=== PATIENT | male | born 1940 | race Caucasian/White ===

== ENCOUNTER 2017-08-14 12:46 | Inpatient (IN) | payer MEDICARE, OTHER ==
[~2017-08-14] VITALS: Ht 177.8 cm; Wt 136.1 kg
[~2017-08-14 12:46] MED LIST: ADVAIR 500/501 EA INH; ALLOPURINOL100 MG PO; ALLOPURINOL300 MG PO; ASPIR 8181 MG PO; CETIRIZINE HCL10 MG PO; CLOPIDOGREL75 MG PO; DIOVAN80 MG PO; DOCUSATE SODIU100 MG PO; FLOVENT DISKUS50 MCG; GABAPENTIN300 MG PO; LASIX20 MG PO; LEVAQUIN500 MG PO; LEVOTHYROXINE50 MCG PO; MELATONIN3 MG PO; NEXIUM40 MG; NIFEDIPINE ER30 M1; NIFEDIPINE ER60 M1 PO; NOVOLIN N100 UNIT/1 SQ; OMEPRAZOLE40 MG PO; PROAIR HFA INH8.5 GM INH; SERTRALINE HCL100 MG PO; SIMVASTATIN40 MG PO; TYLENOL WITH C1 EACH PO; VIT D2 PO; ZEMPLAR1 MCG; [UNRECOGNIZED DRUG - OTHER] PO
[2017-08-14 13:18] LABS: BASOPHILS % 0.6 % (0.0-1.0); EOSINOPHILS # (AUTO) 0.1 (0.0-0.4); EOSINOPHILS % 2.8 % (0.0-6.0); HEMATOCRIT 35.5 % (38.2-49.6); HEMOGLOBIN 10.8 g/dL (14.0-18.0); LYMPHOCYTES # (AUTO) 0.7 (1.0-3.2); LYMPHOCYTES % 19.3 % (18.0-39.1); MEAN CORPUSCULAR HEMOGLOBIN 25.2 pg (28-32); MEAN CORPUSCULAR HGB CONC 30.4 g/dL (31-35); MEAN CORPUSCULAR VOLUME 82.8 fL (81-99); MONOCYTES # (AUTO) 0.4 (0.2-0.8); MONOCYTES % 10.1 % (4.4-11.3); NEUTROPHILS # (AUTO) 2.4 (2.1-6.9); NEUTROPHILS % 66.4 % (38.7-80.0); PLATELET COUNT 169 x10e3/uL (140-360); RED BLOOD COUNT 4.29 x10e6/uL (4.3-5.7)
--- NOTE | 2017-08-14 13:27 | Diagnostic Imaging Report ---
PROCEDURE: A single AP view of the chest. COMPARISON: None. INDICATIONS: SHORTNESS OF BREATH FINDINGS: Limited examination due to lordotic projection Lines/tubes: None. Lungs: The lungs are well inflated and clear. There is no evidence of pneumonia or pulmonary edema. Pleura: There is no pleural effusion or pneumothorax. Heart and mediastinum: The heart and the mediastinum are unremarkable. Bones: No acute bony abnormality. Suture anchor in the right humeral head. IMPRESSION: 1. No acute cardiopulmonary disease. Dictated by: Sacha Boyd M.D. on 08/14/2017 at 13:34 Electronically approved by: Sacha Boyd M.D. on 08/14/2017 at 13:34
[2017-08-14 13:29] LABS: INR 0.92; PARTIAL THROMBOPLASTIN TIME 26.2 seconds (23.8-35.5); PROTHROMBIN TIME 12.8 seconds (11.9-14.5)
[2017-08-14 13:41] LABS: ALBUMIN 3.3 g/dL (3.5-5.0); ALBUMIN/GLOBULIN RATIO 0.9 (0.8-2.0); CALCIUM 8.6 mg/dL (8.4-10.2); CREATININE, SERUM 1.55 mg/dL (0.72-1.25)
[2017-08-14 13:49] LABS: CREATINE KINASE MB 2.4 ng/mL (0.00-5.00); TROPONIN I 0.028 ng/mL (0-0.300)
[2017-08-14 15:21] LABS: ABG HCO3 27 mmol/L (23-28); ABG PCO2 45 mmHg (41-51); ABG PH 7.39 (7.31-7.41); ABG PO2 50 mmHg (80-105)
[2017-08-14] MEDS ORDERED: DEXTROSE 50% SYRINGE 50 ML IV PRN (16:00)
[2017-08-14] MEDS ORDERED: AZITHROMYCIN 500MG/SOD CHL 0.9% 250ML BAG IV SCH (16:00)
[2017-08-14] MEDS: CEFTRIAXONE SOD 1 GM VIAL IV SCH (16:30)
[2017-08-14] MEDS: OSELTAMIVIR PHOSPHATE 75 MG CAP PO SCH (16:30)
[2017-08-14] MEDS: AZITHROMYCIN 500MG/NS 250 ML 250 ML IV SCH (16:38)
[2017-08-14] MEDS: METHYLPREDNISOLONE SOD SUCC 40 MG/ML VIAL IV SCH (17:30)
[2017-08-14] MEDS: INSULIN REGULAR, HUMAN 100 UNIT/1 ML 3ML VIAL SQ SCH ×2 (18:08→20:38)
[2017-08-14 21:02] LABS: CREATINE KINASE MB 2.4 ng/mL (0.00-5.00); TROPONIN I 0.016 ng/mL (0-0.300)
[2017-08-14 23:28] VITALS: BP 180/81
[2017-08-15] MEDS: METHYLPREDNISOLONE SOD SUCC 40 MG/ML VIAL IV SCH ×3 (01:09→17:19)
[2017-08-15 04:00] VITALS: BP 156/81
[2017-08-15] MEDS ORDERED: MELATONIN 3 MG TAB PO PRN (06:00)
[2017-08-15] MEDS ORDERED: SODIUM CHLORIDE 0.9% 250ML 250 ML ONE (06:07)
[2017-08-15 06:15] LABS: BASOPHILS % 0.3 % (0.0-1.0); HEMOGLOBIN 10.4 g/dL (14.0-18.0); LYMPHOCYTES # (AUTO) 0.5 (1.0-3.2); MEAN CORPUSCULAR HEMOGLOBIN 24.5 pg (28-32); MEAN CORPUSCULAR HGB CONC 29.7 g/dL (31-35); MEAN CORPUSCULAR VOLUME 82.5 fL (81-99); MONOCYTES # (AUTO) 0.2 (0.2-0.8); MONOCYTES % 5.3 % (4.4-11.3); NEUTROPHILS # (AUTO) 2.8 (2.1-6.9); NEUTROPHILS % 78.8 % (38.7-80.0); PLATELET COUNT 162 x10e3/uL (140-360); RED BLOOD COUNT 4.24 x10e6/uL (4.3-5.7); RED CELL DISTRIBUTION WIDTH 18.7 % (11.7-14.4)
[2017-08-15 06:31] LABS: ANION GAP 15.6 mmol/L (8-16); CALCIUM 8.7 mg/dL (8.4-10.2); CREATININE, SERUM 1.34 mg/dL (0.72-1.25); POTASSIUM 4.6 mmol/L (3.5-5.1)
[2017-08-15 07:19] VITALS: BP 163/83
[2017-08-15 08:14] LABS: CREATINE KINASE MB 1.8 ng/mL (0.00-5.00); TROPONIN I 0.038 ng/mL (0-0.300)
[2017-08-15] MEDS: INSULIN REGULAR, HUMAN 100 UNIT/1 ML 3ML VIAL SQ SCH ×4 (08:23→21:00)
[2017-08-15] MEDS: VALSARTAN 80 MG TAB PO SCH (08:25)
[2017-08-15] MEDS: LEVOTHYROXINE SODIUM 50 MCG TAB PO SCH (08:25)
[2017-08-15] MEDS: DOCUSATE SODIUM 100 MG CAP PO SCH (08:25)
[2017-08-15] MEDS: ASPIRIN 81 MG CHEW TAB PO SCH (08:25)
[2017-08-15] MEDS: OSELTAMIVIR PHOSPHATE 75 MG CAP PO SCH ×2 (08:26→21:00)
[2017-08-15] MEDS: CLOPIDOGREL BISULFATE 75 MG TAB PO SCH (08:26)
[2017-08-15] MEDS: PANTOPRAZOLE SOD 40 MG TABEC PO SCH (08:26)
[2017-08-15] MEDS: ALLOPURINOL 100 MG TAB PO SCH (08:26)
[2017-08-15] MEDS: GABAPENTIN 300 MG CAP PO SCH ×2 (08:26→21:00)
[2017-08-15] MEDS: FUROSEMIDE 20 MG TAB PO SCH (08:26)
[2017-08-15 11:31] VITALS: BP 185/83
[2017-08-15 13:45] VITALS: BP 190/80
[2017-08-15 15:24] VITALS: BP 144/65
[2017-08-15] MEDS: CEFTRIAXONE SOD 1 GM VIAL IV SCH (17:19)
[2017-08-15] MEDS: ACETAMINOPHEN/CODEINE 300MG - 30MG TAB PO PRN (17:34)
[2017-08-15] MEDS: AZITHROMYCIN 500MG/NS 250 ML 250 ML IV SCH (17:34)
[2017-08-15 19:20] VITALS: BP 180/70
[2017-08-15] MEDS: SIMVASTATIN 40 MG TAB PO SCH (21:00)
[2017-08-15] MEDS: SERTRALINE HCL 100 MG TAB PO SCH (21:00)
[2017-08-15] MEDS ORDERED: MELATONIN 5 MG TABLET PO PRN (21:00)
[2017-08-15] MEDS: NPH, HUMAN INSULIN ISOPHANE 100 UNIT/1 ML 3ML VIAL SQ SCH (21:00)
[2017-08-15] MEDS: CLONIDINE HCL 0.2 MG TAB PO PRN (21:33)
[2017-08-16] VITALS: BP 166/74
[2017-08-16] MEDS: METHYLPREDNISOLONE SOD SUCC 40 MG/ML VIAL IV SCH ×3 (01:00→18:15)
[2017-08-16 06:00] VITALS: BP 192/83
[2017-08-16] MEDS: LEVOTHYROXINE SODIUM 50 MCG TAB PO SCH (06:00)
[2017-08-16 07:47] VITALS: BP 188/80
[2017-08-16] MEDS: INSULIN REGULAR, HUMAN 100 UNIT/1 ML 3ML VIAL SQ SCH ×4 (08:34→23:20)
[2017-08-16] MEDS: ALLOPURINOL 100 MG TAB PO SCH (08:34)
[2017-08-16] MEDS: OSELTAMIVIR PHOSPHATE 75 MG CAP PO SCH ×2 (08:34→21:17)
[2017-08-16] MEDS: GABAPENTIN 300 MG CAP PO SCH ×2 (08:34→19:48)
[2017-08-16] MEDS: ASPIRIN 81 MG CHEW TAB PO SCH (08:34)
[2017-08-16] MEDS: CLOPIDOGREL BISULFATE 75 MG TAB PO SCH (08:34)
[2017-08-16] MEDS: VALSARTAN 80 MG TAB PO SCH (08:34)
[2017-08-16] MEDS: DOCUSATE SODIUM 100 MG CAP PO SCH (08:34)
[2017-08-16] MEDS: FUROSEMIDE 20 MG TAB PO SCH (08:34)
[2017-08-16] MEDS: PANTOPRAZOLE SOD 40 MG TABEC PO SCH (08:34)
[2017-08-16 12:08] VITALS: BP 150/66
[2017-08-16] MEDS ORDERED: SODIUM CHLORIDE 0.9% 250ML 250 ML ONE (15:55)
[2017-08-16 16:07] VITALS: BP 163/93
[2017-08-16] MEDS: AZITHROMYCIN 500MG/NS 250 ML 250 ML IV SCH (17:30)
[2017-08-16] MEDS: CEFTRIAXONE SOD 1 GM VIAL IV SCH (18:15)
[2017-08-16] MEDS: SIMVASTATIN 40 MG TAB PO SCH (19:48)
[2017-08-16] MEDS: ACETAMINOPHEN/CODEINE 300MG - 30MG TAB PO PRN (19:48)
[2017-08-16] MEDS: SERTRALINE HCL 100 MG TAB PO SCH (19:49)
[2017-08-16 20:00] VITALS: BP 175/85
[2017-08-16] MEDS: NPH, HUMAN INSULIN ISOPHANE 100 UNIT/1 ML 3ML VIAL SQ SCH (23:19)
[2017-08-17] VITALS: BP 154/77
[2017-08-17] MEDS: METHYLPREDNISOLONE SOD SUCC 40 MG/ML VIAL IV SCH ×3 (01:02→17:50)
[2017-08-17 04:00] VITALS: BP 204/96
[2017-08-17] MEDS: LEVOTHYROXINE SODIUM 50 MCG TAB PO SCH (05:32)
[2017-08-17] MEDS: CLONIDINE HCL 0.2 MG TAB PO PRN (05:33)
[2017-08-17] MEDS: INSULIN REGULAR, HUMAN 100 UNIT/1 ML 3ML VIAL SQ SCH ×4 (07:30→20:45)
[2017-08-17 07:56] VITALS: BP 194/86
[2017-08-17] MEDS: CLOPIDOGREL BISULFATE 75 MG TAB PO SCH (09:51)
[2017-08-17] MEDS: DOCUSATE SODIUM 100 MG CAP PO SCH (09:51)
[2017-08-17] MEDS: GABAPENTIN 300 MG CAP PO SCH ×2 (09:51→20:12)
[2017-08-17] MEDS: ASPIRIN 81 MG CHEW TAB PO SCH (09:51)
[2017-08-17] MEDS: OSELTAMIVIR PHOSPHATE 75 MG CAP PO SCH ×2 (09:51→20:12)
[2017-08-17] MEDS: FUROSEMIDE 20 MG TAB PO SCH (09:51)
[2017-08-17] MEDS: ALLOPURINOL 100 MG TAB PO SCH (09:51)
[2017-08-17] MEDS: VALSARTAN 80 MG TAB PO SCH (09:51)
[2017-08-17] MEDS: PANTOPRAZOLE SOD 40 MG TABEC PO SCH (09:51)
[2017-08-17 11:40] VITALS: BP 157/84
[2017-08-17 16:09] VITALS: BP 146/84
[2017-08-17] MEDS: AZITHROMYCIN 500MG/NS 250 ML 250 ML IV SCH (17:50)
[2017-08-17] MEDS: CEFTRIAXONE SOD 1 GM VIAL IV SCH (17:50)
[2017-08-17 20:00] VITALS: BP 152/77
[2017-08-17] MEDS: SERTRALINE HCL 100 MG TAB PO SCH (20:12)
[2017-08-17] MEDS: SIMVASTATIN 40 MG TAB PO SCH (20:12)
[2017-08-17] MEDS: ACETAMINOPHEN/CODEINE 300MG - 30MG TAB PO PRN (20:34)
[2017-08-17] MEDS: NPH, HUMAN INSULIN ISOPHANE 100 UNIT/1 ML 3ML VIAL SQ SCH (20:44)
[2017-08-17] MEDS ORDERED: INSULIN REGULAR, HUMAN 100 UNIT/1 ML 3ML VIAL SQ ONE (21:15)
[2017-08-18] VITALS: BP 151/87
[2017-08-18 04:10] VITALS: BP 157/88
[2017-08-18] MEDS: LEVOTHYROXINE SODIUM 50 MCG TAB PO SCH (05:05)
[2017-08-18] MEDS: INSULIN REGULAR, HUMAN 100 UNIT/1 ML 3ML VIAL SQ SCH ×4 (07:30→21:11)
[2017-08-18 07:36] VITALS: BP 152/79
[2017-08-18] MEDS: ASPIRIN 81 MG CHEW TAB PO SCH (08:06)
[2017-08-18] MEDS: METHYLPREDNISOLONE SOD SUCC 40 MG/ML VIAL IV SCH ×2 (08:06→20:43)
[2017-08-18] MEDS: VALSARTAN 80 MG TAB PO SCH (08:06)
[2017-08-18] MEDS: DOCUSATE SODIUM 100 MG CAP PO SCH (08:06)
[2017-08-18] MEDS: ALLOPURINOL 100 MG TAB PO SCH (08:07)
[2017-08-18] MEDS: FUROSEMIDE 20 MG TAB PO SCH (08:07)
[2017-08-18] MEDS: CLOPIDOGREL BISULFATE 75 MG TAB PO SCH (08:07)
[2017-08-18] MEDS: OSELTAMIVIR PHOSPHATE 75 MG CAP PO SCH ×2 (08:07→20:43)
[2017-08-18] MEDS: GABAPENTIN 300 MG CAP PO SCH ×2 (08:07→20:43)
[2017-08-18] MEDS: PANTOPRAZOLE SOD 40 MG TABEC PO SCH (08:07)
[2017-08-18] MEDS: CLONIDINE HCL 0.2 MG TAB PO PRN (11:01)
[2017-08-18 11:20] VITALS: BP 186/98
[2017-08-18 15:34] VITALS: BP 153/80
[2017-08-18] MEDS: AZITHROMYCIN 500MG/NS 250 ML 250 ML IV SCH (15:36)
[2017-08-18] MEDS: CEFTRIAXONE SOD 1 GM VIAL IV SCH (16:54)
[2017-08-18 20:00] VITALS: BP 139/71
[2017-08-18] MEDS: SIMVASTATIN 40 MG TAB PO SCH (20:43)
[2017-08-18] MEDS: SERTRALINE HCL 100 MG TAB PO SCH (20:43)
[2017-08-18] MEDS: NPH, HUMAN INSULIN ISOPHANE 100 UNIT/1 ML 3ML VIAL SQ SCH (21:11)
[2017-08-19] VITALS: BP 139/63
[2017-08-19 04:00] VITALS: BP 157/95
[2017-08-19] MEDS: LEVOTHYROXINE SODIUM 50 MCG TAB PO SCH (05:30)
[2017-08-19] MEDS: INSULIN REGULAR, HUMAN 100 UNIT/1 ML 3ML VIAL SQ SCH ×4 (07:30→21:00)
[2017-08-19] MEDS: ALBUTEROL/IPRATROPIUM 3 ML NEB NEB PRN ×2 (07:34→19:20)
[2017-08-19 07:39] VITALS: BP 157/76
[2017-08-19] MEDS: GABAPENTIN 300 MG CAP PO SCH ×2 (08:30→21:06)
[2017-08-19] MEDS: METHYLPREDNISOLONE SOD SUCC 40 MG/ML VIAL IV SCH ×2 (08:30→21:06)
[2017-08-19] MEDS: DOCUSATE SODIUM 100 MG CAP PO SCH (08:30)
[2017-08-19] MEDS: ALLOPURINOL 100 MG TAB PO SCH (08:30)
[2017-08-19] MEDS: FUROSEMIDE 20 MG TAB PO SCH (08:30)
[2017-08-19] MEDS: VALSARTAN 80 MG TAB PO SCH (08:30)
[2017-08-19] MEDS: PANTOPRAZOLE SOD 40 MG TABEC PO SCH (08:30)
[2017-08-19] MEDS: CLOPIDOGREL BISULFATE 75 MG TAB PO SCH (08:30)
[2017-08-19] MEDS: ASPIRIN 81 MG CHEW TAB PO SCH (08:30)
[2017-08-19] MEDS: OSELTAMIVIR PHOSPHATE 75 MG CAP PO SCH ×2 (08:30→21:06)
[2017-08-19 08:55] LABS: HEMATOCRIT 40.5 % (38.2-49.6); HEMOGLOBIN 12.4 g/dL (14.0-18.0); MEAN CORPUSCULAR HEMOGLOBIN 24.7 pg (28-32); MEAN CORPUSCULAR HGB CONC 30.6 g/dL (31-35); MEAN CORPUSCULAR VOLUME 80.5 fL (81-99); PLATELET COUNT 248 x10e3/uL (140-360); RED BLOOD COUNT 5.03 x10e6/uL (4.3-5.7); RED CELL DISTRIBUTION WIDTH 17.6 % (11.7-14.4)
[2017-08-19 09:06] LABS: CALCIUM 9.3 mg/dL (8.4-10.2); CREATININE, SERUM 1.27 mg/dL (0.72-1.25)
--- NOTE | 2017-08-19 09:13 | Diagnostic Imaging Report ---
EXAMINATION: CHEST 2 VIEWS 08/19/2017 0619 hours COMPARISON: Chest x-ray 02/02/2017, CT chest INDICATION: Pneumonia, flulike symptoms DISCUSSION: LINES: None. LUNGS: Diffuse mild bronchial wall thickening. No evidence of infiltrate. There is mild hyperinflation. Pulmonary vascular markings are normal. PLEURA: No pleural effusion or pneumothorax. HEART AND MEDIASTINUM: The heart is top normal in size. The aorta is ectatic with atherosclerotic calcifications of the arch. BONES AND SOFT TISSUES: There is an anchor in the proximal right humerus.. The soft tissues are normal. IMPRESSION: Bronchial wall thickening suggestive of bronchitis. No pulmonary infiltrates. Mild pulmonary hyperinflation suggestive of COPD. Signed by: Dr. Kalani Crawford MD on 08/19/2017 9:10 AM
[2017-08-19 11:26] VITALS: BP 129/69
[2017-08-19 15:46] VITALS: BP 145/77
[2017-08-19] MEDS: AZITHROMYCIN 500MG/NS 250 ML 250 ML IV SCH (16:33)
[2017-08-19] MEDS: CEFTRIAXONE SOD 1 GM VIAL IV SCH (16:33)
[2017-08-19 20:00] VITALS: BP 141/67
[2017-08-19] MEDS: NPH, HUMAN INSULIN ISOPHANE 100 UNIT/1 ML 3ML VIAL SQ SCH (21:00)
[2017-08-19] MEDS: SIMVASTATIN 40 MG TAB PO SCH (21:06)
[2017-08-19] MEDS: SERTRALINE HCL 100 MG TAB PO SCH (21:06)
[2017-08-20] VITALS: BP 157/82
[2017-08-20 04:00] VITALS: BP 168/87
[2017-08-20] MEDS: LEVOTHYROXINE SODIUM 50 MCG TAB PO SCH (06:11)
[2017-08-20] MEDS: INSULIN REGULAR, HUMAN 100 UNIT/1 ML 3ML VIAL SQ SCH ×2 (07:30→11:30)
[2017-08-20] MEDS: ALBUTEROL/IPRATROPIUM 3 ML NEB NEB PRN ×2 (07:53→11:05)
[2017-08-20 08:00] VITALS: BP 180/83
[2017-08-20] MEDS: VALSARTAN 80 MG TAB PO SCH (08:30)
[2017-08-20] MEDS: ALLOPURINOL 100 MG TAB PO SCH (08:30)
[2017-08-20] MEDS: FUROSEMIDE 20 MG TAB PO SCH (08:30)
[2017-08-20] MEDS: GABAPENTIN 300 MG CAP PO SCH (08:30)
[2017-08-20] MEDS: DOCUSATE SODIUM 100 MG CAP PO SCH (08:30)
[2017-08-20] MEDS: METHYLPREDNISOLONE SOD SUCC 40 MG/ML VIAL IV SCH (08:30)
[2017-08-20] MEDS: PANTOPRAZOLE SOD 40 MG TABEC PO SCH (08:30)
[2017-08-20] MEDS: OSELTAMIVIR PHOSPHATE 75 MG CAP PO SCH (08:30)
[2017-08-20] MEDS: CLOPIDOGREL BISULFATE 75 MG TAB PO SCH (08:30)
[2017-08-20] MEDS: ASPIRIN 81 MG CHEW TAB PO SCH (08:30)
[2017-08-20] MEDS ORDERED: PREDNISONE20 MG PO (10:46)
[2017-08-20] MEDS ORDERED: TAMIFLU75 MG PO (10:48)
[2017-08-20 12:00] VITALS: BP 133/60
[2017-08-20 16:00] VITALS: BP 134/63
== END 2017-08-20 16:44 | disposition home or self-care (01) | DRG 190 ==
LOC: ER 12:46 → ERHOLD 17:12 → IMCU 22:25 → OBSVTOIN 08-16 09:02 → MED/SURG3 08-16 11:07
PROVIDERS: ADMIT Internal Medicine; ATTEND Internal Medicine
DX: J44.0 Chronic obstructive pulmonary disease with (acute) lower respiratory infection (principal); J11.00 Influenza due to unidentified influenza virus with unspecified type of pneumonia; I13.0 Hypertensive heart and chronic kidney disease with heart failure and stage 1 through stage 4 chronic kidney disease, or unspecified chronic kidney disease; E11.22 Type 2 diabetes mellitus with diabetic chronic kidney disease; I50.9 Heart failure, unspecified; D64.9 Anemia, unspecified; N18.3 Chronic kidney disease, stage 3 (moderate); J44.1 Chronic obstructive pulmonary disease with (acute) exacerbation; E03.9 Hypothyroidism, unspecified; I25.10 Atherosclerotic heart disease of native coronary artery without angina pectoris; J11.1 Influenza due to unidentified influenza virus with other respiratory manifestations
CPT/HCPCS: 36415; 36600; 71010; 71020; 80048; 80053; 82550; 82553; 82805; 82948; 83880; 84484; 85007; 85025; 85027; 85379; 85610; 85730; 87040; 87400; 93005; 94660; 96374; 99284; G0378; J0456; J0696; J2920; J7050

== ENCOUNTER → 2017-09-28 | Outpatient (CLI) | payer MEDICARE, OTHER ==
[~2017-09-28] MED LIST changes: +PREDNISONE20 MG PO; +TAMIFLU75 MG PO
--- NOTE | 2017-10-01 15:26 | Diagnostic Imaging Report ---
Right knee MRI without contrast. History: Knee pain. Decreased range of motion. Pain not responding to conservative management. Comparison: None. Technique: Multiplanar multi-sequence MRI of the knee without contrast. Findings: Medial compartment: Midsubstance degeneration and fraying of the medial meniscus. The medial compartmental articular cartilage surfaces are within with regions of fraying and deep fissuring. There is a subchondral microtrabecular fracture best seen on coronal series 6 image 16 at the periphery of the medial femoral condyle. There is moderate underlying bone marrow edema most pronounced at the peripheral medial femoral condyle. The medial collateral ligament complex is intact. Lateral compartment: Midsubstance degeneration fraying of the lateral meniscus. The lateral compartmental articular cartilage surfaces are within. There are peripheral marginal osteophytes. The lateral collateral ligament complex is intact. Intercondylar notch: The ACL and PCL are intact. Patellofemoral compartment: There is articular cartilage fraying and fissuring in the patellofemoral compartment. There is mild underlying bone marrow edema. Extensor mechanism: The quadriceps and patellar tendons are normal. Other findings: There is a joint effusion and synovitis. There is no acute fracture, subluxation or avascular necrosis. IMPRESSION: Subchondral microtrabecular fracture with bone marrow edema at the periphery of the medial femoral condyle. No cortical fracture is seen. 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 Signed by: Dr. Aurelio Herrera M.D. on 10/01/2017 3:22 PM
== END ==
LOC: MRI 15:23
PROVIDERS: ATTEND Anesthesiology Pain Medicine
DX: M25.561 Pain in right knee (principal)

== ENCOUNTER 2017-10-18 06:42 | Inpatient (IN) | payer MEDICARE, OTHER ==
[~2017-10-18] VITALS: Ht 177.8 cm; Wt 136.1 kg
--- OUTSIDE RECORDS SUMMARY | 2017-10-18 06:45 | XMS REPORT ---
Author Author [facility] Address Unknown Phone Unavailable Care Team Providers Care Computer Trainer Name Role Phone NASH AL Unavailable Unavailable ELVER HAGER Unavailable Unavailable Problems This patient has no known problems. Allergies, Adverse Reactions, Alerts This patient has no known allergies or adverse reactions. Medications This patient has no known medications. Results Test Description Test Time Test Comments Text Results Atomic Results Result Comments MRI RIGHT KNEE WO [place] [address] Patient Name: ESTHER STEWART MR #: [id number] : 1940 Age/Sex: 77/M Req #: [id number] [facility] Physician: Ordered by: NASH AL MD Report #: [id number] Location: MRI Room/Bed: Procedure: [id number] MRI/MRI RIGHT KNEE WO Exam Date: Exam Time: REPORT STATUS: Signed Right knee MRI without contrast. History: Knee pain. Decreased range of motion. Pain not responding to conservative management. Comparison: None. Technique: Multiplanar multi-sequence MRI of the knee without contrast. Findings: Medial compartment: Midsubstance degeneration and fraying of the medial meniscus. The medial compartmental articular cartilage surfaces are within with regions of fraying and deep fissuring. There is a subchondral microtrabecular fracture best seen on coronal series 6 image 16 at the periphery of the medial femoral condyle. There is moderate underlying bone marrow edema most pronounced at the peripheral medial femoral condyle. The medial collateral ligament complex is intact. Lateral compartment: Midsubstance degeneration fraying of the lateral meniscus. The lateral compartmental articular cartilage surfaces are within. There are peripheral marginal osteophytes. The lateral collateral ligament complex is intact. Intercondylar notch: The ACL and PCL are intact. Patellofemoral compartment: There is articular cartilage fraying and fissuring in the patellofemoral compartment. There is mild underlying bone marrow edema. Extensor mechanism: The quadriceps and patellar tendons are normal. Other findings: There is a joint effusion and synovitis. There is no acute fracture, subluxation or avascular necrosis. IMPRESSION: Subchondral microtrabecular fracture with bone marrow edema at the periphery of the medial femoral condyle. No cortical fracture is seen. 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 Signed by: Dr. Aurelio Herrera M.D. on 10/01 3:22 PM Dictated By: AURELIO HERRERA MD, MD 1522 Transcribed By: MAYA on 10/01/17 1522 COPY TO: NASH AL MD CHEST 2 VIEWS [place] [address] Patient Name: ESTHER STEWART MR #: [id number] : 1940 Age/Sex: 77/M Req #: [id number] Adm Physician: ELVER HAGER MD Ordered by: CORAL ERICKSON MD Report #: [id number] Location: MED/SURG3 Room/Bed: 290-1 ___ Procedure: [id number] DX/CHEST 2 VIEWS Exam Date: 08/19/17 Exam Time: 0840 REPORT STATUS: Signed EXAMINATION: CHEST 2 VIEWS 08/19/2017 0619 hours COMPARISON: Chest x-ray 02/02/2017, CT chest/11/03 INDICATION: Pneumonia, flulike symptoms DISCUSSION : LINES: None. LUNGS: Diffuse mild bronchial wall thickening. No evidence of infiltrate. There is mild hyperinflation. Pulmonary vascular markings are normal. PLEURA: No pleural effusion or pneumothorax. HEART AND MEDIASTINUM: The heart is top normal in size. The aorta is ectatic with atherosclerotic calcifications of the arch. BONES AND SOFT TISSUES: There is an anchor in the proximal right humerus.. The soft tissues are normal. IMPRESSION: Bronchial wall thickening suggestive of bronchitis. No pulmonary infiltrates. Mild pulmonary hyperinflation suggestive of COPD. Signed by: Dr. Brent Crawford MD on 08/19/2017 9:10 AM Dictated By: BRENT CRAWFORD MD 9 Transcribed By: MAYA on 08/19/17909 COPY TO: CORAL ERICKSON MD CHEST SINGLE (PORTABLE) [place] [address] Patient Name: ESTHER STEWART MR #: [id number] : 1940 Age/Sex: 77/M Req #: [id number] Adm Physician: Ordered by: PAMELA WOMACK MD Report #: [id number] Location: ER Room/Bed: Procedure: [id number] DX/CHEST SINGLE (PORTABLE) Exam Date: 08/14/17 Exam Time: 1310 REPORT STATUS: Signed PROCEDURE: A single AP view of the chest. COMPARISON: None. INDICATIONS: SHORTNESS OF BREATH FINDINGS: Limited examination due to lordotic projection Lines/tubes: None. Lungs: The lungs are well inflated and clear. There is no evidence of pneumonia or pulmonary edema. Pleura : There is no pleural effusion or pneumothorax. Heart and mediastinum: The heart and the mediastinum are unremarkable. Bones: No acute bony abnormality. Suture anchor in the right humeral head. IMPRESSION: 1. No acute cardiopulmonary disease. Dictated by: Mark Boyd M.D. on 08/14/2017 at 13:34 Electronically approved by: Mark Boyd M.D. on 08/14/2017 at 13:34 Dictated By: MARK BOYD MD 1334 Transcribed By: ARTIE on 08/14/17 1334 COPY TO: PAMELA WOMACK MD
[2017-10-18] MEDS ORDERED: ALBUTEROL SULF 0.083% NEB SOLN 3 ML NEB NEB STA (07:26)
[2017-10-18] MEDS ORDERED: IPRATROPIUM BROMIDE 0.02% 2.5 ML NEB NEB STA (07:26)
[2017-10-18] MEDS ORDERED: METHYLPREDNISOLONE SOD SUCC 125 MG/2ML VIAL IV STA (07:26)
[2017-10-18 07:50] LABS: BASOPHILS % 0.5 % (0.0-1.0); EOSINOPHILS # (AUTO) 0.2 (0.0-0.4); EOSINOPHILS % 2.6 % (0.0-6.0); HEMATOCRIT 34.8 % (38.2-49.6); HEMOGLOBIN 10.9 g/dL (14.0-18.0); LYMPHOCYTES # (AUTO) 1.3 (1.0-3.2); LYMPHOCYTES % 21.2 % (18.0-39.1); MEAN CORPUSCULAR HEMOGLOBIN 25.6 pg (28-32); MEAN CORPUSCULAR HGB CONC 31.3 g/dL (31-35); MEAN CORPUSCULAR VOLUME 81.9 fL (81-99); MONOCYTES # (AUTO) 0.5 (0.2-0.8); MONOCYTES % 8.3 % (4.4-11.3); NEUTROPHILS # (AUTO) 4.1 (2.1-6.9); NEUTROPHILS % 66.7 % (38.7-80.0); PLATELET COUNT 180 x10e3/uL (140-360); RED BLOOD COUNT 4.25 x10e6/uL (4.3-5.7); RED CELL DISTRIBUTION WIDTH 18.4 % (11.7-14.4)
[2017-10-18 08:09] LABS: ALBUMIN 3.3 g/dL (3.5-5.0); ANION GAP 16.4 mmol/L (8-16); CALCIUM 8.7 mg/dL (8.4-10.2); CREATININE, SERUM 1.88 mg/dL (0.72-1.25); POTASSIUM 4.4 mmol/L (3.5-5.1)
[2017-10-18 08:15] LABS: CREATINE KINASE MB 2.2 ng/mL (0-5.0)
--- NOTE | 2017-10-18 08:32 | Diagnostic Imaging Report ---
PROCEDURE:CHEST SINGLE (PORTABLE) TECHNIQUE:Portable AP chest INDICATION:Shortness of breath COMPARISON:Patients [facility] [place], DX, CHEST 2 VIEWS, 08/19/2017, 6:19. FINDINGS: Lungs are clear and symmetrically inflated. No pleural effusions. Upper limits of normal heart size for technique. Intact skeleton. Study limited by positioning, portable technique and body habitus. CONCLUSION: No acute abnormality. Dictated by: Jose Zuniga M.D. on 10/18/2017 at 8:33 Electronically approved by: Jose Zuniga M.D. on 10/18/2017 at 8:33
[2017-10-18] MEDS ORDERED: LEVOFLOXACIN 500MG/D5W 100ML IV SCH (09:00)
[2017-10-18] MEDS ORDERED: DEXTROSE 50% SYRINGE 50 ML IV PRN (09:00)
[2017-10-18] MEDS ORDERED: SODIUM CHLORIDE FLUSH 10 ML SYR INJ PRN (09:00)
[2017-10-18] MEDS: LEVOFLOXACIN 500MG/D5W 100ML 100 ML IV SCH (10:00)
[2017-10-18 13:18] VITALS: BP 138/60
[2017-10-18] MEDS ORDERED: METHYLPREDNISOLONE SOD SUCC 125 MG/2ML VIAL IV SCH (14:00)
[2017-10-18 14:22] VITALS: BP 138/60
[2017-10-18] MEDS ORDERED: [UNRECOGNIZED DRUG - OTHER] PO SCH (15:00)
[2017-10-18] MEDS ORDERED: MELATONIN 3 MG TAB PO PRN (15:00)
[2017-10-18] MEDS ORDERED: ACETAMINOPHEN/CODEINE 300MG - 30MG TAB PO PRN (15:00)
[2017-10-18 15:11] VITALS: BP 138/60
[2017-10-18] MEDS ORDERED: ERGOCALCIFEROL 50,000 UNIT CAP PO SCH (15:30)
[2017-10-18] MEDS ORDERED: MELATONIN 5 MG TABLET PO PRN (15:45)
[2017-10-18 16:33] LABS: CREATINE KINASE MB 2.3 ng/mL (0-5.0)
[2017-10-18 16:42] VITALS: BP 134/63
[2017-10-18] MEDS: INSULIN REGULAR, HUMAN 100 UNIT/1 ML 3ML VIAL SQ SCH ×2 (16:53→21:00)
[2017-10-18] MEDS ORDERED: INSULIN REGULAR, HUMAN 100 UNIT/1 ML 3ML VIAL SQ ONE (17:00)
[2017-10-18] MEDS ORDERED: OSELTAMIVIR PHOSPHATE 75 MG CAP PO SCH (17:00)
[2017-10-18] MEDS: ALBUTEROL/IPRATROPIUM 3 ML NEB NEB SCH (19:30)
[2017-10-18] MEDS: BUDESONIDE/FORMOTEROL 160/4.5MCG INHALER INH SCH (19:30)
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
--- NOTE | 2017-10-18 19:37 | Consultation ---
DATE OF CONSULTATION: October 18, 2017 ADDENDUM: Mr. Willard does have a history of a stent placement at [facility], apparently in [place], a stent. Job#: [id number]
[2017-10-18 20:00] VITALS: BP 171/77
[2017-10-18 20:07] VITALS: BP 171/77
[2017-10-18] MEDS: SERTRALINE HCL 100 MG TAB PO SCH (20:43)
[2017-10-18] MEDS: METHYLPREDNISOLONE SOD SUCC 125 MG/2ML VIAL IV SCH (20:43)
[2017-10-18] MEDS: SIMVASTATIN 40 MG TAB PO SCH (20:43)
[2017-10-18] MEDS: GABAPENTIN 300 MG CAP PO SCH (20:43)
[2017-10-18] MEDS: NPH, HUMAN INSULIN ISOPHANE 100 UNIT/1 ML 3ML VIAL SQ SCH (21:00)
[2017-10-18] MEDS ORDERED: INSULIN REGULAR, HUMAN 100 UNIT/1 ML 3ML VIAL SQ SCH ×2 (21:00)
[2017-10-18] MEDS ORDERED: MELATONIN 5 MG TABLET PO SCH (21:00)
[2017-10-19] VITALS: BP 153/73
[2017-10-19] MEDS: ALBUTEROL/IPRATROPIUM 3 ML NEB NEB SCH ×4 (01:22→19:20)
[2017-10-19 04:00] VITALS: BP 140/71
[2017-10-19] MEDS: METHYLPREDNISOLONE SOD SUCC 125 MG/2ML VIAL IV SCH ×3 (05:05→22:00)
[2017-10-19 06:21] LABS: BASOPHILS % 0.1 % (0.0-1.0); HEMATOCRIT 33.3 % (38.2-49.6); HEMOGLOBIN 10.3 g/dL (14.0-18.0); LYMPHOCYTES # (AUTO) 0.5 (1.0-3.2); MEAN CORPUSCULAR HEMOGLOBIN 25.2 pg (28-32); MEAN CORPUSCULAR HGB CONC 30.9 g/dL (31-35); MEAN CORPUSCULAR VOLUME 81.4 fL (81-99); MONOCYTES # (AUTO) 0.3 (0.2-0.8); MONOCYTES % 4.8 % (4.4-11.3); NEUTROPHILS # (AUTO) 6.2 (2.1-6.9); NEUTROPHILS % 87.3 % (38.7-80.0); PLATELET COUNT 168 x10e3/uL (140-360); RED BLOOD COUNT 4.09 x10e6/uL (4.3-5.7); RED CELL DISTRIBUTION WIDTH 17.9 % (11.7-14.4)
[2017-10-19 06:48] LABS: ANION GAP 14.4 mmol/L (8-16); CALCIUM 8.8 mg/dL (8.4-10.2); CREATININE, SERUM 1.53 mg/dL (0.72-1.25); POTASSIUM 4.4 mmol/L (3.5-5.1)
[2017-10-19] MEDS: BUDESONIDE/FORMOTEROL 160/4.5MCG INHALER INH SCH ×2 (07:41→19:20)
[2017-10-19 08:00] VITALS: BP 180/83
[2017-10-19] MEDS ORDERED: NON-FORMULARY MEDICATION (Cetirizine Hcl 10 MG) PO SCH (09:00)
[2017-10-19] MEDS ORDERED: NON-FORMULARY MEDICATION (Nifedipine (Nifedipine Er) 60 MG) PO SCH (09:00)
[2017-10-19] MEDS: LORATADINE 10 MG TAB PO SCH (10:17)
[2017-10-19] MEDS: ASPIRIN 81 MG CHEW TAB PO SCH (10:17)
[2017-10-19] MEDS: VALSARTAN 80 MG TAB PO SCH (10:17)
[2017-10-19] MEDS: GABAPENTIN 300 MG CAP PO SCH ×2 (10:17→21:16)
[2017-10-19] MEDS: CLOPIDOGREL BISULFATE 75 MG TAB PO SCH (10:17)
[2017-10-19] MEDS: LEVOFLOXACIN 500MG/D5W 100ML 100 ML IV SCH (10:17)
[2017-10-19] MEDS: FUROSEMIDE 20 MG TAB PO SCH (10:17)
[2017-10-19] MEDS: DOCUSATE SODIUM 100 MG CAP PO SCH (10:17)
[2017-10-19] MEDS: PANTOPRAZOLE SOD 40 MG TABEC PO SCH (10:18)
[2017-10-19] MEDS: NIFEDIPINE CR 30 MG TAB PO SCH (10:18)
[2017-10-19] MEDS: ALLOPURINOL 100 MG TAB PO SCH (10:18)
[2017-10-19] MEDS: LEVOTHYROXINE SODIUM 50 MCG TAB PO SCH (10:18)
[2017-10-19] MEDS ORDERED: SODIUM CHLORIDE 0.9% 250ML 250 ML ONE ×2 (10:27→11:08)
[2017-10-19] MEDS: NPH, HUMAN INSULIN ISOPHANE 100 UNIT/1 ML 3ML VIAL SQ SCH ×2 (10:41→21:16)
[2017-10-19] MEDS: INSULIN REGULAR, HUMAN 100 UNIT/1 ML 3ML VIAL SQ SCH ×4 (10:46→21:16)
[2017-10-19 12:00] VITALS: BP 164/113
[2017-10-19 16:00] VITALS: BP 148/71
--- NOTE | 2017-10-19 17:03 | Pulmonary Function Test ---
DATE OF STUDY: October 19, 2017 SPIROMETRY REPORT Forced vital capacity 1.71 liters, 42% of predicted. FEV1 of 1.34 liters, 46%. FEV1-FVC ratio 78%. FEF 25-75, 58% of restricted pattern. There is no significant improvement following inhalation of bronchodilators. Job#: [id number] GH
[2017-10-19 20:00] VITALS: BP 135/63
[2017-10-19] MEDS: SIMVASTATIN 40 MG TAB PO SCH (21:16)
[2017-10-19] MEDS: SERTRALINE HCL 100 MG TAB PO SCH (21:16)
[2017-10-20] VITALS (7 sets, daily range): BP systolic 113–157; BP diastolic 60–97
[2017-10-20] MEDS: ALBUTEROL/IPRATROPIUM 3 ML NEB NEB SCH ×4 (01:02→19:20)
[2017-10-20] MEDS: METHYLPREDNISOLONE SOD SUCC 125 MG/2ML VIAL IV SCH ×2 (06:38→21:13)
[2017-10-20] MEDS: BUDESONIDE/FORMOTEROL 160/4.5MCG INHALER INH SCH ×2 (06:55→19:20)
[2017-10-20] MEDS: LEVOTHYROXINE SODIUM 50 MCG TAB PO SCH (08:40)
[2017-10-20] MEDS: CLOPIDOGREL BISULFATE 75 MG TAB PO SCH (08:40)
[2017-10-20] MEDS: GABAPENTIN 300 MG CAP PO SCH ×2 (08:40→21:13)
[2017-10-20] MEDS: DOCUSATE SODIUM 100 MG CAP PO SCH (08:40)
[2017-10-20] MEDS: ALLOPURINOL 100 MG TAB PO SCH (08:40)
[2017-10-20] MEDS: LORATADINE 10 MG TAB PO SCH (08:40)
[2017-10-20] MEDS: LEVOFLOXACIN 500MG/D5W 100ML 100 ML IV SCH (08:40)
[2017-10-20] MEDS: FUROSEMIDE 20 MG TAB PO SCH (08:40)
[2017-10-20] MEDS: PANTOPRAZOLE SOD 40 MG TABEC PO SCH (08:40)
[2017-10-20] MEDS: ASPIRIN 81 MG CHEW TAB PO SCH (08:41)
[2017-10-20] MEDS: VALSARTAN 80 MG TAB PO SCH (08:41)
[2017-10-20] MEDS: NIFEDIPINE CR 30 MG TAB PO SCH (08:41)
[2017-10-20] MEDS: NPH, HUMAN INSULIN ISOPHANE 100 UNIT/1 ML 3ML VIAL SQ SCH ×2 (08:42→21:13)
[2017-10-20] MEDS: INSULIN REGULAR, HUMAN 100 UNIT/1 ML 3ML VIAL SQ SCH ×4 (08:42→21:16)
[2017-10-20] MEDS: SIMVASTATIN 40 MG TAB PO SCH (21:13)
[2017-10-20] MEDS: SERTRALINE HCL 100 MG TAB PO SCH (21:13)
[2017-10-21] MEDS: ALBUTEROL/IPRATROPIUM 3 ML NEB NEB SCH ×5 (01:30→23:20)
[2017-10-21] MEDS ORDERED: METHYLPREDNISOLONE SOD SUCC 40 MG/ML VIAL IV ONE (06:15)
[2017-10-21] MEDS: BUDESONIDE/FORMOTEROL 160/4.5MCG INHALER INH SCH ×2 (07:16→19:15)
[2017-10-21] MEDS: INSULIN REGULAR, HUMAN 100 UNIT/1 ML 3ML VIAL SQ SCH ×4 (07:30→21:00)
[2017-10-21] MEDS: LEVOTHYROXINE SODIUM 50 MCG TAB PO SCH (07:30)
[2017-10-21 08:00] VITALS: BP 99/55
[2017-10-21] MEDS: LORATADINE 10 MG TAB PO SCH (09:00)
[2017-10-21] MEDS: ASPIRIN 81 MG CHEW TAB PO SCH (09:00)
[2017-10-21] MEDS: ALLOPURINOL 100 MG TAB PO SCH (09:00)
[2017-10-21] MEDS: LEVOFLOXACIN 500MG/D5W 100ML 100 ML IV SCH (09:00)
[2017-10-21] MEDS: CLOPIDOGREL BISULFATE 75 MG TAB PO SCH (09:00)
[2017-10-21] MEDS: PANTOPRAZOLE SOD 40 MG TABEC PO SCH (09:00)
[2017-10-21] MEDS: DOCUSATE SODIUM 100 MG CAP PO SCH (09:00)
[2017-10-21] MEDS: NIFEDIPINE CR 30 MG TAB PO SCH (09:00)
[2017-10-21] MEDS: METHYLPREDNISOLONE SOD SUCC 125 MG/2ML VIAL IV SCH ×2 (09:00→20:49)
[2017-10-21] MEDS: GABAPENTIN 300 MG CAP PO SCH ×2 (09:00→20:40)
[2017-10-21] MEDS: VALSARTAN 80 MG TAB PO SCH (09:00)
[2017-10-21] MEDS: FUROSEMIDE 20 MG TAB PO SCH (09:00)
--- NOTE | 2017-10-21 09:28 | Diagnostic Imaging Report ---
EXAMINATION: CHEST 2 VIEWS INDICATION: \S\Wheezing \[id number] \S\0905 \S\Y COMPARISON: Chest radiograph from 10/18/2017 FINDINGS: PA and lateral views TUBES and LINES: None. LUNGS: Lungs are well inflated. Lungs are clear. Minimal bilateral peribronchial thickening. There is no evidence of pneumonia or pulmonary edema. PLEURA: No pleural effusion or pneumothorax. HEART AND MEDIASTINUM: The cardiomediastinal silhouette is unremarkable. BONES AND SOFT TISSUES: No acute osseous lesion. Soft tissues are unremarkable. UPPER ABDOMEN: No free air under the diaphragm. IMPRESSION: Minimal bilateral peribronchial thickening may relate to reactive airway disease or viral infection. Signed by: Dr. Chela Gordon M.D. on 10/21/2017 9:25 AM
[2017-10-21] MEDS: NPH, HUMAN INSULIN ISOPHANE 100 UNIT/1 ML 3ML VIAL SQ SCH ×2 (10:51→21:00)
[2017-10-21 12:00] VITALS: BP 128/75
[2017-10-21 16:00] VITALS: BP 113/61
[2017-10-21 20:00] VITALS: BP 141/79
[2017-10-21] MEDS: SIMVASTATIN 40 MG TAB PO SCH (20:39)
[2017-10-21] MEDS: SERTRALINE HCL 100 MG TAB PO SCH (20:40)
[2017-10-22] VITALS: BP 130/89
[2017-10-22] MEDS: ALBUTEROL/IPRATROPIUM 3 ML NEB NEB SCH ×6 (03:25→23:30)
[2017-10-22 04:00] VITALS: BP 135/65
[2017-10-22] MEDS: BUDESONIDE/FORMOTEROL 160/4.5MCG INHALER INH SCH ×2 (07:06→19:56)
[2017-10-22] MEDS: LEVOTHYROXINE SODIUM 50 MCG TAB PO SCH (07:30)
[2017-10-22] MEDS: INSULIN REGULAR, HUMAN 100 UNIT/1 ML 3ML VIAL SQ SCH ×4 (07:55→20:40)
[2017-10-22 08:00] VITALS: BP 150/78
[2017-10-22] MEDS: CLOPIDOGREL BISULFATE 75 MG TAB PO SCH (09:00)
[2017-10-22] MEDS: LORATADINE 10 MG TAB PO SCH (09:00)
[2017-10-22] MEDS: PANTOPRAZOLE SOD 40 MG TABEC PO SCH (09:00)
[2017-10-22] MEDS: ALLOPURINOL 100 MG TAB PO SCH (09:00)
[2017-10-22] MEDS: FUROSEMIDE 20 MG TAB PO SCH (09:00)
[2017-10-22] MEDS: NPH, HUMAN INSULIN ISOPHANE 100 UNIT/1 ML 3ML VIAL SQ SCH ×2 (09:00→20:45)
[2017-10-22] MEDS: VALSARTAN 80 MG TAB PO SCH (09:00)
[2017-10-22] MEDS: LEVOFLOXACIN 500MG/D5W 100ML 100 ML IV SCH (09:00)
[2017-10-22] MEDS: DOCUSATE SODIUM 100 MG CAP PO SCH (09:00)
[2017-10-22] MEDS: NIFEDIPINE CR 30 MG TAB PO SCH (09:00)
[2017-10-22] MEDS: GABAPENTIN 300 MG CAP PO SCH ×2 (09:00→20:40)
[2017-10-22] MEDS: METHYLPREDNISOLONE SOD SUCC 125 MG/2ML VIAL IV SCH ×2 (09:00→20:40)
[2017-10-22 12:01] VITALS: BP 171/79
[2017-10-22 15:45] VITALS: BP 134/81
[2017-10-22 20:34] VITALS: BP 134/78
[2017-10-22] MEDS: SIMVASTATIN 40 MG TAB PO SCH (20:40)
[2017-10-22] MEDS: SERTRALINE HCL 100 MG TAB PO SCH (20:40)
[2017-10-22] MEDS ORDERED: ASPIRIN 81 MG CHEW TAB PO SCH (21:00)
[2017-10-23] VITALS: BP 169/94
[2017-10-23] MEDS: ALBUTEROL/IPRATROPIUM 3 ML NEB NEB SCH ×4 (03:15→15:14)
[2017-10-23 04:00] VITALS: BP 169/65
[2017-10-23] MEDS: BUDESONIDE/FORMOTEROL 160/4.5MCG INHALER INH SCH (07:10)
[2017-10-23] MEDS: INSULIN REGULAR, HUMAN 100 UNIT/1 ML 3ML VIAL SQ SCH ×3 (07:30→16:23)
[2017-10-23] MEDS: LEVOTHYROXINE SODIUM 50 MCG TAB PO SCH (07:30)
[2017-10-23 08:00] VITALS: BP 163/70
[2017-10-23] MEDS ORDERED: SODIUM CHLORIDE 0.9% 250ML 250 ML ONE (08:25)
[2017-10-23] MEDS: NPH, HUMAN INSULIN ISOPHANE 100 UNIT/1 ML 3ML VIAL SQ SCH (09:00)
[2017-10-23] MEDS: NIFEDIPINE CR 30 MG TAB PO SCH (09:00)
[2017-10-23] MEDS: ALLOPURINOL 100 MG TAB PO SCH (09:00)
[2017-10-23] MEDS: LORATADINE 10 MG TAB PO SCH (09:00)
[2017-10-23] MEDS: FUROSEMIDE 20 MG TAB PO SCH (09:00)
[2017-10-23] MEDS: LEVOFLOXACIN 500MG/D5W 100ML 100 ML IV SCH (09:00)
[2017-10-23] MEDS: PANTOPRAZOLE SOD 40 MG TABEC PO SCH (09:00)
[2017-10-23] MEDS: CLOPIDOGREL BISULFATE 75 MG TAB PO SCH (09:00)
[2017-10-23] MEDS: DOCUSATE SODIUM 100 MG CAP PO SCH (09:00)
[2017-10-23] MEDS: GABAPENTIN 300 MG CAP PO SCH (09:00)
[2017-10-23] MEDS: METHYLPREDNISOLONE SOD SUCC 125 MG/2ML VIAL IV SCH (09:00)
[2017-10-23] MEDS: VALSARTAN 80 MG TAB PO SCH (09:00)
[2017-10-23 12:00] VITALS: BP 137/83
[2017-10-23 16:14] VITALS: BP 143/65
== END 2017-10-23 17:18 | disposition home health service (06) | DRG 190 ==
LOC: ER 06:42 → EDBEDREQ 09:31 → ERHOLD 11:32 → MED/SURG2 12:57 → OBSVTOIN 10-19 05:23
PROVIDERS: ADMIT Internal Medicine; ATTEND Internal Medicine
DX: J44.0 Chronic obstructive pulmonary disease with (acute) lower respiratory infection (principal); J18.9 Pneumonia, unspecified organism; E11.22 Type 2 diabetes mellitus with diabetic chronic kidney disease; Z68.41 Body mass index [BMI] 40.0-44.9, adult; N18.3 Chronic kidney disease, stage 3 (moderate); D64.9 Anemia, unspecified; J44.1 Chronic obstructive pulmonary disease with (acute) exacerbation; I12.9 Hypertensive chronic kidney disease with stage 1 through stage 4 chronic kidney disease, or unspecified chronic kidney disease; Z79.4 Long term (current) use of insulin; G47.33 Obstructive sleep apnea (adult) (pediatric); I25.10 Atherosclerotic heart disease of native coronary artery without angina pectoris; M16.0 Bilateral primary osteoarthritis of hip; Z87.891 Personal history of nicotine dependence; E66.9 Obesity, unspecified
CPT/HCPCS: 36415; 71045; 71046; 80048; 80053; 82550; 82553; 82948; 83880; 84484; 85025; 92950; 93005; 94060; 94640; 96374; 99284; G0378; J1956; J2920; J2930; J7050

== ENCOUNTER 2017-11-09 16:15 | Inpatient (IN) | payer MEDICARE, OTHER ==
[~2017-11-09] VITALS: Ht 177.8 cm; Wt 129.8 kg
--- OUTSIDE RECORDS SUMMARY | 2017-11-09 16:17 | XMS REPORT | Continuity of Care Document ---
Author Author [facility] Organization [facility] Address [address] [place] [address] Phone Unavailable Care Team Providers Care Box Nailer Name Role Phone ELVER HAGER MD PCP Insurance Providers Guarantor Leonides Willard Address [address] [place] [address] Email Payer Ppo Policy Number [id number] Subscriber's Name Leonides Willard Relationship 18 Self / Same As Patient Group Number [id number] Group Name RETIRED Effective Date 16 Payer Medicare A & B Policy Number [id number] Subscriber's Name Leonides Willard Relationship 18 Self / Same As Patient Group Number [id number] Group Name RETIRED Effective Date 03 Advance Directives Directive Response Recorded Date/Time Does the patient have an advance directive? Yes 10/18/17 2:18pm If yes, is advance directive on file with [facility]? Yes 10/18/17 2:18pm If not on file with [facility] will patient provide a copy? No 10/18/17 2:18pm Do you have a Directive to Physician? No 10/18/17 7:14am Do you have a Medical Power of Oncology Navigator? No 10/18/17 7:14am Do you have an out of hospital Do Not Resuscitate Order? No 10/18/17 7:14am Do you have any special needs we should be aware of? No 10/18/17 7:14am Do you have a support person here with you today? No 10/18/17 7:14am Did patient receive Notice of Privacy Practices? Yes 10/18/17 7:14am Did patient receive patient rights and responsibilities? Yes 10/18/17 7:14am Problems Medical Problem Onset Date Status CHF (congestive heart failure) Unknown CKD (chronic kidney disease) Unknown COPD exacerbation Unknown Cellulitis Unknown Chest pain Unknown Gangrene Unknown Renal insufficiency Unknown Medications Current Home Medications Medication Dose Units Route Directions Days Qty Instructions Start Date Acetaminophen With Codeine (Tylenol With Codeine #3 Tablet) 1 Each Tablet 300 Mg Oral Every 6 Hours as needed for Pain Albuterol Sulfate (Proair Hfa Inhaler*) 8.5 Gm Inh 2 Dose Inhalation Twice A Day 1 PUFF Allopurinol 100 Mg Tablet 150 Mg Oral Daily 30 Tab Aspirin (Aspir 81) 81 Mg Tablet. 81 Mg Oral Daily Cetirizine Hcl 10 Mg Tablet 10 Mg Oral Daily Clopidogrel Bisulfate (Clopidogrel) 75 Mg Tablet 75 Mg Oral Daily 30 Tab Docusate Sodium 100 Mg Capsule 100 Mg Oral Daily Furosemide (Lasix) 20 Mg Tablet 60 Mg Oral Daily 30 Tab Gabapentin 300 Mg Capsule 600 Mg Oral Bedtime 60 Cap Gabapentin 300 Mg Capsule 300 Mg Oral Daily 60 Cap Levothyroxine Sodium 50 Mcg Tablet 50 Mcg Oral Daily 30 Tab Melatonin 3 Mg Tablet 10 Mg Oral Bedtime as needed for Insomnia Nifedipine (Nifedipine Er) 60 Mg Tab.er.24 60 Mg Oral Daily Nph, Human Insulin Isophane (Novolin N) 100 Unit/1 Ml Vial 50 U Sub-Q Daily Nph, Human Insulin Isophane (Novolin N) 100 Unit/1 Ml Vial 60 Units Sub-Q Today At 9:00PM Omeprazole 40 Mg Capsule.dr 40 Mg Oral Daily Oseltamivir Phosphate (Tamiflu) 75 Mg Cap 75 Mg Oral Twice A Day 2 Days Prednisone 20 Mg Tab 20 Mg Oral Twice A Day 3 Days Sertraline Hcl 100 Mg Tablet 100 Mg Oral Bedtime Simvastatin 40 Mg Tablet 40 Mg Oral Today At 9:00PM 30 Tab Valsartan (Diovan) 80 Mg Tab 80 Mg Oral Daily Vit D-2 50,000 U Oral Weekly Past Home Medications Medication Directions Ordered Status Allopurinol 300 Mg Tablet, 300 Mg Oral Daily Discontinued Docusate Sodium 100 Mg Capsule, 100 Mg Oral Discontinued Gabapentin 300 Mg Capsule, 300 Mg Oral Daily Discontinued Levofloxacin (Levaquin) 500 Mg Tablet, 500 Mg Oral Daily Discontinued Nifedipine (Nifedipine Er) 30 Mg Tab.er.24, Discontinued Paricalcitol (Zemplar) 1 Mcg Capsule, Mon.isaias. Discontinued Salmeterol Xinafoate/Fluticasone (Advair 500/50*) 1 Ea Aerp, 1 Inh Inhalation Every 12 Hours Discontinued Family History Relationship Condition Age at Onset Recorded Date/Time 09 Brother Family history of hypertension Not Recorded 10/18/2016 8:20pm 33 Father Family history of diabetes mellitus Not Recorded 10/18/2016 8:18pm 33 Father Family history of hypertension Not Recorded 10/18/2016 8:20pm 32 Mother Family history of acute myocardial infarction Not Recorded 2016 8:19pm 32 Mother Family history of hypertension Not Recorded 10/18/2016 8:20pm 09 Sister Family history of acute myocardial infarction Not Recorded 2016 8:19pm 09 Sister Family history of hypertension Not Recorded 10/18/2016 8:20pm Social History Social History Problem Response Recorded Date/Time Onset Date Status Hx Psychiatric Problems No 10/18/2017 2:18pm Not Applicable Not Applicable Hx Eating Disorder No 10/18/2017 2:18pm Not Applicable Not Applicable Hx Substance Use Disorder No 10/18/2017 2:18pm Not Applicable Not Applicable Hx Depression Yes 10/18/2017 2:18pm Not Applicable Not Applicable Hx Alcohol Use No 10/18/2017 2:18pm Not Applicable Not Applicable Hx Substance Use Treatment No 10/18/2017 2:18pm Not Applicable Not Applicable Hx Physical Abuse No 10/18/2017 2:18pm Not Applicable Not Applicable Smoking Status Start Date Stop Date Former smoker Hospital Discharge Instructions No hospital discharge instruction information available. Plan of Care Discharge Date 10/23/17 5:18pm Disposition HOME, SELF-CARE Instructions/Education Provided Congestive Heart Failure Prescriptions See Medication Section Additional Instructions/Education CONTINUE CURRENT DIET AND ACTIVITY TOLERATED. FOLLOW UP WITH DR HAGER IN ONE WEEK. FOLLOW UP WITH DR JOHN IN ONE WEEK. Functional Status Query Response Date Recorded Ambulation Ability Minimum Assistance October 18, 2017 3:11pm Toileting Ability Independent October 23, 2017 10:21am Allergies, Adverse Reactions, Alerts Allergen Type Severity Reaction Status Last Updated penicillin Allergy Unknown Active 08/14/17 Immunizations No immunization information available. Vital Signs Acute Vital Signs Vital Response Date/Time Temperature (Fahrenheit) 96.4 degrees F (97.6 - 99.5) 10/23/2017 4:14pm Pulse Pulse Rate (adult) 101 bpm (60 - 90) 10/23/2017 4:14pm Respiratory Rate 19 bpm (12 - 24) 10/23/2017 4:14pm Blood Pressure 143/65 mm Hg 10/23/2017 4:14pm Height 5 ft 10 in 10/18/2017 7:00am Weight 300 lb 10/18/2017 7:00am Body Mass Index 43.0 kg/m^2 10/18/2017 2:18pm Results Laboratory Results Test Name Result Units Flags Reference Collection Date/Time Result Date/ Time Comments Urine Color YELLOW YELLOW 01/01/2017 12:30pm 01/01/2017 1:05pm Urine Clarity CLEAR CLEAR 01/01/2017 12:30pm 01/01/2017 1:05pm Urine Specific [place] 1.025 1.010-1.025 01/01/2017 12:30pm 2016 1:05pm Urine pH 5 5 - 7 01/01/2017 12:30pm 01/01/2017 1:05pm Urine Leukocyte Esterase NEGATIVE NEGATIVE 01/01/2017 12:30pm 2016 1:05pm Urine Nitrite NEGATIVE NEGATIVE 01/01/2017 12:30pm 01/01/2017 1:05pm Urine Protein NEGATIVE NEGATIVE 01/01/2017 12:30pm 01/01/2017 1:05pm Urine Glucose (UA) NEGATIVE NEGATIVE 01/01/2017 12:30pm 01/01/2017 1: 05pm Urine Ketones NEGATIVE NEGATIVE 01/01/2017 12:30pm 01/01/2017 1:05pm Urine Urobilinogen 0.2 mg/dL 0.2 - 1 01/01/2017 12:30pm 01/01/2017 1: 05pm Urine Bilirubin 1+ H NEGATIVE 01/01/2017 12:30pm 01/01/2017 1:05pm Confirmatory test currently unavailable. False positive results may occur. Urine Blood NEGATIVE NEGATIVE 01/01/2017 12:30pm 01/01/2017 1:05pm Urine WBC NONE /HPF 0-5 01/01/2017 12:30pm 01/01/2017 1:14pm Urine RBC NONE /HPF 0-5 01/01/2017 12:30pm 01/01/2017 1:14pm Urine Bacteria RARE /HPF NONE 01/01/2017 12:30pm 01/01/2017 1:14pm Urine Epithelial Cells RARE /LPF NONE 01/01/2017 12:30pm 01/01/2017 1: 14pm Urine Amorphous Sediment RARE FEW 01/01/2017 12:30pm 01/01/2017 1: 14pm Urine Hyaline Casts 2-5 H 0-1 01/01/2017 12:30pm 01/01/2017 1:14pm Ammonia 43 UG/DL 31-123 01/01/2017 1:00pm 01/01/2017 1:51pm Group A Streptococcus Screen NEGATIVE NEGATIVE 01/01/2017 12:40pm 1:20pm Vancomycin Level Trough 13.6 ug/mL *H 5.0-10.0 01/21/2017 12:30am 2016 12:57am Results called to DARI DE LA CRUZ RN at 0056 on 01/21/17 by Cathy Anderson. RB OK. Magnesium Level 1.6 MG/DL 1.3-2.1 02/06/2017 6:16am 02/06/2017 7:09am Prothrombin Time 12.8 seconds 11.9-14.5 08/14/2017 12:57pm 08/14/2017 1 :31pm Prothromb Time International Ratio 0.92 08/14/2017 12:57pm 2016 1:31pm Oral Anticoagulant Therapy INR Values: 1. Low Intensity Therapy 1.5 - 2.0 2. Moderate Intensity Therapy 2.0 - 3.0 3. High Intensity Therapy(1) 2.5 - 3.5 4. High Intensity Therapy(2) 3.0 - 4.0 5. Panic Value INR > 5.0 Activated Partial Thromboplast Time 26.2 seconds 23.8-35.5 08/14/2017 12 :57pm 08/14/2017 1:31pm D-Dimer Quantitative (PE/DVT) 1.23 ug/mLFEU H 0.00-0.45 08/14/2017 12: 57pm 08/14/2017 1:33pm Influenza Virus Types A,B Antigen POSITIVE FLU A H NEGATIVE 08/14/2017 1:40pm 08/14/2017 2:37pm Results called to ALMA ROSA EM RN at 1436 on by Michelet Nicholas. RB OK. Arterial Blood pH 7.39 7.31-7.41 08/14/2017 3:05pm 08/14/2017 3:21pm Arterial Blood Partial Pressure CO2 45 mmHg 41-51 08/14/2017 3:05pm 3:21pm Arterial Blood Partial Pressure O2 50 mmHg L 80-105 08/14/2017 3:05pm 3:21pm Arterial Blood HCO3 27 mmol/L 23-28 08/14/2017 3:05pm 08/14/2017 3: 21pm Arterial Blood Base Excess 2.0 mmol/L -2 - 3 08/14/2017 3:05pm 2016 3:21pm Arterial Blood Oxygen Saturation 85.0 % L 95-98 08/14/2017 3:05pm 2016 3:21pm White Blood Count 7.15 x10e3/uL 4.8-10.8 10/19/2017 5:48am 10/19/2017 6 :22am Red Blood Count 4.09 x10e6/uL L 4.3-5.7 10/19/2017 5:48am 10/19/2017 6: 22am Hemoglobin 10.3 g/dL L 14.0-18.0 10/19/2017 5:48am 10/19/2017 6:22am Hematocrit 33.3 % L 38.2-49.6 10/19/2017 5:48am 10/19/2017 6:22am Mean Corpuscular Volume 81.4 fL 81-99 10/19/2017 5:48am 10/19/2017 6: 22am Mean Corpuscular Hemoglobin 25.2 pg L 28-32 10/19/2017 5:48am 2017 6:22am Mean Corpuscular Hemoglobin Concent 30.9 g/dL L 31-35 10/19/2017 5:48am 10/19/2017 6:22am Red Cell Distribution Width 17.9 % H 11.7-14.4 10/19/2017 5:48am 2017 6:22am Platelet Count 168 x10e3/uL 140-360 10/19/2017 5:48am 10/19/2017 6: 22am Neutrophils (%) (Auto) 87.3 % H 38.7-80.0 10/19/2017 5:48am 10/19/2017 6 :22am Lymphocytes (%) (Auto) 7.0 % L 18.0-39.1 10/19/2017 5:48am 10/19/2017 6: 22am Monocytes (%) (Auto) 4.8 % 4.4-11.3 10/19/2017 5:48am 10/19/2017 6: 22am Eosinophils (%) (Auto) 0.0 % 0.0-6.0 10/19/2017 5:48am 10/19/2017 6: 22am Basophils (%) (Auto) 0.1 % 0.0-1.0 10/19/2017 5:48am 10/19/2017 6:22am IM GRANULOCYTES % 0.8 % 0.0-1.0 10/19/2017 5:48am 10/19/2017 6:22am Neutrophils # (Auto) 6.2 2.1-6.9 10/19/2017 5:48am 10/19/2017 6:22am Lymphocytes # (Auto) 0.5 L 1.0-3.2 10/19/2017 5:48am 10/19/2017 6: 22am Monocytes # (Auto) 0.3 0.2-0.8 10/19/2017 5:48am 10/19/2017 6:22am Eosinophils # (Auto) 0.0 0.0-0.4 10/19/2017 5:48am 10/19/2017 6:22am Basophils # (Auto) 0.0 0.0-0.1 10/19/2017 5:48am 10/19/2017 6:22am Absolute Immature Granulocyte (auto 0.06 x10e3/uL 0-0.1 10/19/2017 5: 48am 10/19/2017 6:22am Sodium Level 139 mmol/L 136-145 10/19/2017 5:48am 10/19/2017 6:48am Potassium Level 4.4 mmol/L 3.5-5.1 10/19/2017 5:48am 10/19/2017 6:48am Chloride Level 102 mmol/L 98-107 10/19/2017 5:48am 10/19/2017 6:48am Carbon Dioxide Level 27 mmol/L 22-29 10/19/2017 5:48am 10/19/2017 6: 48am Anion Gap 14.4 mmol/L 8-16 10/19/2017 5:48am 10/19/2017 6:48am Blood Urea Nitrogen 32 mg/dL H 7-10/19/2017 5:48am 10/19/2017 6:48am Creatinine 1.53 mg/dL H 0.72-1.25 10/19/2017 5:48am 10/19/2017 6:48am BUN/Creatinine Ratio 21 6-25 10/19/2017 5:48am 10/19/2017 6:48am Estimat Glomerular Filtration Rate 44 ML/MIN L 60- 10/19/2017 5:48am 09/2017 6:48am Ranges were taken from the National Kidney Disease Education Program and the National Kid[employer] Foundation literature. Reference ranges: 60 or greater: Normal 16-59 (for 3 consecutive months): Chronic kidney disease 15 or less: Kidney failure Glucose Level 268 mg/dL H 74-118 10/19/2017 5:48am 10/19/2017 6:48am Calcium Level 8.8 mg/dL 8.4-10.2 10/19/2017 5:48am 10/19/2017 6:48am Bedside Glucose 259 mg/dL H 70-120 10/23/2017 3:22pm 10/23/2017 4:36pm Meter ID: [id number] Total Bilirubin 0.3 mg/dL 0.2-1.2 10/18/2017 7:43am 10/18/2017 8:11am Aspartate Amino Transf (AST/SGOT) 30 IU/L 5-34 10/18/2017 7:43am 2017 8:11am Alanine Aminotransferase (ALT/SGPT) 31 IU/L 0-55 10/18/2017 7:43am 08/2017 8:11am Total Protein 6.7 g/dL 6.5-8.1 10/18/2017 7:43am 10/18/2017 8:11am Albumin 3.3 g/dL L 3.5-5.0 10/18/2017 7:43am 10/18/2017 8:11am Globulin 3.4 g/dL 2.3-3.5 10/18/2017 7:43am 10/18/2017 8:11am Albumin/Globulin Ratio 1.0 0.8-2.0 10/18/2017 7:43am 10/18/2017 8: 11am Alkaline Phosphatase 140 IU/L 40-150 10/18/2017 7:43am 10/18/2017 8: 11am B-Type Natriuretic Peptide 47.2 pg/mL 0-100 10/18/2017 7:43am 2017 8:27am Creatine Kinase 87 IU/L 30-200 10/19/2017 5:48am 10/19/2017 6:48am Creatine Kinase MB 2.00 ng/mL 0-5.0 10/19/2017 5:48am 10/19/2017 6: 59am Troponin I 0.009 ng/mL 0-0.300 10/19/2017 5:48am 10/19/2017 6:59am Microbiology Results Procedure Source Organism/Result Collection Date/Time Result Date/Time Result Status Blood Culture Blood NO GROWTH AFTER 5 DAYS, FINAL REPORT 08/14/2017 12: 57pm 08/19/2017 1:12pm Final Procedures Procedure Status Date Provider(s) EXCISION OF L FOOT SUBCU/FASCIA, OPEN APPROACH Completed 02/05/17 SAMANTHA ZIMMER DPMartínez X-ray of chest, two views Active 08/19/17 CORAL ERICKSON MD MRI jnt of lwr extre w/o dye Active 09/28/17 NASH AL MD X-ray of chest, two views Active 10/21/17 ALEXANDER JOHN MD Encounters Encounter Location Arrival/Admit Date Discharge/Depart Date Attending Provider Discharged Inpatient [facility] 10/19/17 5:23am 10/23/17 5:18pm ELVER HAGER MD Registered Clinic [facility] 09/28/17 3:23pm NASH AL MD Discharged Inpatient [facility] 08/16/17 9:02am 08/20/17 4:44pm ELVER HAGER MD Discharged Inpatient [facility] 02/03/17 6:57am 02/07/17 12:30pm ELVER HAGER MD Discharged Inpatient [facility] 01/26/17 12:07am 12:10pm ELVER HAGER MD Discharged Inpatient [facility] 01/16/17 7:11pm 01/22/17 11:30pm ELVER HAGER MD Discharged Inpatient (obs) [facility] 01/01/17 4:51pm 9:33am ELVER HAGER MD
[2017-11-09] MEDS ORDERED: SODIUM CHLORIDE 0.9% 1000ML 1,000 ML IV STA (16:40)
[2017-11-09] MEDS ORDERED: PANTOPRAZOLE 40 MG 10ML VIAL IV STA (16:56)
[2017-11-09] MEDS ORDERED: LEVOFLOXACIN 500MG/D5W 100ML 100 ML IV STA (16:56)
[2017-11-09] MEDS ORDERED: VANCOMYCIN 1GM/NS 250 ML 250 ML IV STA (16:56)
[2017-11-09] MEDS ORDERED: ONDANSETRON HCL INJ 2 MG/ML VIAL IV PRN (17:00)
[2017-11-09] MEDS ORDERED: LEVALBUTEROL HCL SOLN NEBU 1.25 MG/3 ML NEB INH PRN (17:00)
[2017-11-09] MEDS ORDERED: IPRATROPIUM BROMIDE 0.02% 2.5 ML NEB NEB PRN (17:00)
[2017-11-09] MEDS ORDERED: FENTANYL CITRATE/PF 100MCG/2 ML INJ IV SCH (17:00)
[2017-11-09] MEDS ORDERED: DEXTROSE 50% SYRINGE 50 ML IV PRN (17:00)
[2017-11-09] MEDS ORDERED: LEVOFLOXACIN 500MG/D5W 100ML 100 ML IV SCH ×2 (17:00→17:15)
[2017-11-09] MEDS ORDERED: PANTOPRAZOLE 40 MG 10ML VIAL IV SCH (17:15)
--- NOTE | 2017-11-09 17:25 | Diagnostic Imaging Report ---
PROCEDURE: A single AP view of the chest. COMPARISON: Chest radiograph 10/21/2017 INDICATIONS: SHAKING EPISODES, WEAKNESS FINDINGS: Lines/tubes: None. Lungs: The lungs are poorly inflated. There is no evidence of pneumonia or pulmonary edema. Pleura: There is no pleural effusion or pneumothorax. Heart and mediastinum: The heart and the mediastinum are accentuated by low lung volumes and technique. Bones: No acute bony abnormality. Ligamentous anchor overlies the right humeral head. Increased right acromioclavicular interval measuring 1.9 cm reflects prior AC joint injury. IMPRESSION: Low lung volumes. Otherwise, no acute cardiopulmonary disease. Dictated by: Joe Todd M.D. on 11/09/2017 at 17:25 Electronically approved by: Joe Todd M.D. on 11/09/2017 at 17:25
[2017-11-09 17:51] LABS: BASOPHILS % 0.4 % (0.0-1.0); EOSINOPHILS # (AUTO) 0.2 (0.0-0.4); HEMATOCRIT 28.9 % (38.2-49.6); LYMPHOCYTES # (AUTO) 1.2 (1.0-3.2); LYMPHOCYTES % 15.6 % (18.0-39.1); MEAN CORPUSCULAR HEMOGLOBIN 25.6 pg (28-32); MEAN CORPUSCULAR HGB CONC 31.1 g/dL (31-35); MEAN CORPUSCULAR VOLUME 82.1 fL (81-99); MONOCYTES # (AUTO) 0.7 (0.2-0.8); MONOCYTES % 9.3 % (4.4-11.3); NEUTROPHILS # (AUTO) 5.7 (2.1-6.9); NEUTROPHILS % 72.3 % (38.7-80.0); PLATELET COUNT 198 x10e3/uL (140-360); RED BLOOD COUNT 3.52 x10e6/uL (4.3-5.7); RED CELL DISTRIBUTION WIDTH 18.6 % (11.7-14.4)
[2017-11-09 17:58] LABS: INR 1.09; PROTHROMBIN TIME 13.3 seconds (11.9-14.5)
[2017-11-09 17:59] LABS: PARTIAL THROMBOPLASTIN TIME 26.1 seconds (23.8-35.5)
[2017-11-09 18:06] LABS: ALBUMIN 3.1 g/dL (3.5-5.0); ALBUMIN/GLOBULIN RATIO 1.1 (0.8-2.0); ANION GAP 13.8 mmol/L (8-16); CALCIUM 8.9 mg/dL (8.4-10.2); CREATININE, SERUM 2.22 mg/dL (0.72-1.25); MAGNESIUM 1.4 MG/DL (1.3-2.1); POTASSIUM 3.8 mmol/L (3.5-5.1)
[2017-11-09 18:16] LABS: CREATINE KINASE MB 2.1 ng/mL (0-5.0)
[2017-11-09 18:28] LABS: THYROID STIMULATING HORMONE 2.013 uIU/mL (0.350-4.940)
[2017-11-09] MEDS: FAMOTIDINE 20 MG/2 ML VIAL IV SCH (18:46)
[2017-11-09] MEDS: VANCOMYCIN 1GM/NS 250 ML 250 ML IV SCH (18:46)
[2017-11-09] MEDS: SODIUM CHLORIDE 0.9% 1000ML 1,000 ML IV SCH (18:46)
[2017-11-09 19:11] LABS: BILIRUBIN,URINE 1+ (NEGATIVE); CLARITY,URINE CLEAR (CLEAR); COLOR,URINE YELLOW (YELLOW); KETONES,URINE NEGATIVE (NEGATIVE); LEUKOCYTE ESTERASE ,URINE 2+ (NEGATIVE); NITRITE,URINE NEGATIVE (NEGATIVE); PROTEIN,URINE DIPSTICK NEGATIVE (NEGATIVE); URINE UROBILINOGEN 0.2 mg/dL (0.2 - 1)
[2017-11-09 19:18] LABS: BACTERIA,URINE RARE /HPF; MUCUS,URINE FEW (RARE); RBC,URINE 0-5 /HPF (0-5)
[2017-11-09 20:29] VITALS: BP 157/68
--- NOTE | 2017-11-09 20:33 | Diagnostic Imaging Report ---
History:seizure Comparison studies:None Technique: Axial images were obtained from the skull base to the vertex. Coronal and sagittal images reconstructed from the axial data. Intravenous contrast: None Findings: Scalp/skull: No abnormalities. Extra-axial spaces: No masses. No fluid collections. Brain sulci: Mildly prominent. Ventricles: Mild compensatory dilatation. No hydrocephalus. Parenchyma: No masses, hemorrhage, acute or chronic cortical vascular insults. Sellar/suprasellar region: No abnormalities. Craniocervical junction: Patent foramen magnum. No Chiari one malformation. Incidental findings: Atherosclerotic calcifications in the carotid siphons and distal vertebral arteries. Impression: No acute abnormalities. Generalized age-related cerebral volume loss. A preliminary report was given by Neuroradiology fellow at 6:25 PM on 11/09/2017. I have reviewed the images and agree with the findings in the preliminary report. Signed by: Dr. Kelsey Guerra M.D. on 11/09/2017 8:30 PM
[2017-11-09] MEDS: INSULIN REGULAR, HUMAN 100 UNIT/1 ML 3ML VIAL SQ SCH (21:00)
[2017-11-09] MEDS ORDERED: MELATONIN 3 MG TAB PO PRN (21:30)
[2017-11-09] MEDS ORDERED: [UNRECOGNIZED DRUG - OTHER] PO SCH (21:30)
[2017-11-09] MEDS: LEVOFLOXACIN 500MG/D5W 100ML 100 ML IV SCH (22:00)
[2017-11-10] VITALS (10 sets, daily range): BP systolic 142–163; BP diastolic 63–87
[2017-11-10 04:00] LABS: CREATINE KINASE MB 2.4 ng/mL (0-5.0)
[2017-11-10] MEDS: FAMOTIDINE 20 MG/2 ML VIAL IV SCH ×2 (05:02→17:21)
[2017-11-10] MEDS: VANCOMYCIN 1GM/NS 250 ML 250 ML IV SCH ×2 (05:02→18:12)
[2017-11-10] MEDS: SODIUM CHLORIDE 0.9% 1000ML 1,000 ML IV SCH ×2 (05:02→13:00)
[2017-11-10] MEDS: INSULIN REGULAR, HUMAN 100 UNIT/1 ML 3ML VIAL SQ SCH ×4 (07:30→21:50)
[2017-11-10 08:01] LABS: BASOPHILS % 0.4 % (0.0-1.0); EOSINOPHILS # (AUTO) 0.2 (0.0-0.4); EOSINOPHILS % 3.4 % (0.0-6.0); HEMATOCRIT 29.9 % (38.2-49.6); LYMPHOCYTES # (AUTO) 1.1 (1.0-3.2); LYMPHOCYTES % 19.8 % (18.0-39.1); MEAN CORPUSCULAR HEMOGLOBIN 25.1 pg (28-32); MEAN CORPUSCULAR HGB CONC 30.1 g/dL (31-35); MEAN CORPUSCULAR VOLUME 83.3 fL (81-99); MONOCYTES # (AUTO) 0.5 (0.2-0.8); MONOCYTES % 9.3 % (4.4-11.3); NEUTROPHILS # (AUTO) 3.6 (2.1-6.9); NEUTROPHILS % 66.5 % (38.7-80.0); PLATELET COUNT 183 x10e3/uL (140-360); RED BLOOD COUNT 3.59 x10e6/uL (4.3-5.7); RED CELL DISTRIBUTION WIDTH 18.6 % (11.7-14.4)
[2017-11-10 08:26] LABS: ALBUMIN 2.9 g/dL (3.5-5.0); ANION GAP 11.2 mmol/L (8-16); CALCIUM 9.1 mg/dL (8.4-10.2); CHOL/HDL RATIO 2.8 (3.9-4.7); CREATININE, SERUM 1.61 mg/dL (0.72-1.25); MAGNESIUM 1.5 MG/DL (1.3-2.1); PHOSPHORUS 3.6 MG/DL (2.3-4.7); POTASSIUM 4.2 mmol/L (3.5-5.1)
[2017-11-10] MEDS ORDERED: ASPIRIN 81 MG ENTERIC COATED PO SCH (09:00)
[2017-11-10] MEDS ORDERED: NON-FORMULARY MEDICATION (Cetirizine Hcl 10 MG) PO SCH (09:00)
[2017-11-10] MEDS ORDERED: NON-FORMULARY MEDICATION (Nifedipine (Nifedipine Er) 60 MG) PO SCH (09:00)
[2017-11-10] MEDS ORDERED: LEVOTHYROXINE SODIUM 50 MCG TAB PO SCH (09:00)
[2017-11-10] MEDS: ALBUTEROL SULFATE HFA 8GM INHALATION AEROSOL INH SCH (09:00)
[2017-11-10] MEDS: VALSARTAN 80 MG TAB PO SCH (09:17)
[2017-11-10] MEDS: FUROSEMIDE 20 MG TAB PO SCH (09:17)
[2017-11-10] MEDS: PANTOPRAZOLE SOD 40 MG TABEC PO SCH (09:17)
[2017-11-10] MEDS: ASPIRIN 81 MG CHEW TAB PO SCH (09:17)
[2017-11-10] MEDS: CLOPIDOGREL BISULFATE 75 MG TAB PO SCH (09:17)
[2017-11-10] MEDS: GABAPENTIN 300 MG CAP PO SCH ×2 (09:17→21:49)
[2017-11-10] MEDS: PREDNISONE 20 MG TAB PO SCH ×2 (09:17→17:21)
[2017-11-10] MEDS: NIFEDIPINE CR 30 MG TAB PO SCH (09:17)
[2017-11-10] MEDS: DOCUSATE SODIUM 100 MG CAP PO SCH (09:17)
[2017-11-10] MEDS: LORATADINE 10 MG TAB PO SCH (09:17)
[2017-11-10] MEDS: NPH, HUMAN INSULIN ISOPHANE 100 UNIT/1 ML 3ML VIAL SQ SCH ×2 (09:17→21:49)
[2017-11-10] MEDS: LEVOFLOXACIN 500MG/D5W 100ML 100 ML IV SCH ×2 (10:32→21:51)
[2017-11-10 11:36] LABS: CREATINE KINASE MB 2.7 ng/mL (0-5.0)
[2017-11-10] MEDS ORDERED: MELATONIN 5 MG TABLET PO PRN (21:00)
[2017-11-10] MEDS: SIMVASTATIN 40 MG TAB PO SCH (21:49)
[2017-11-10] MEDS: SERTRALINE HCL 100 MG TAB PO SCH (21:49)
[2017-11-11] VITALS (7 sets, daily range): BP systolic 130–177; BP diastolic 61–72
[2017-11-11] MEDS: LEVOTHYROXINE SODIUM 50 MCG TAB PO SCH (05:43)
[2017-11-11] MEDS: VANCOMYCIN 1GM/NS 250 ML 250 ML IV SCH ×2 (05:43→16:46)
[2017-11-11] MEDS: FAMOTIDINE 20 MG/2 ML VIAL IV SCH ×2 (05:43→16:46)
[2017-11-11] MEDS: SODIUM CHLORIDE 0.9% 1000ML 1,000 ML IV SCH ×2 (05:44→12:07)
[2017-11-11] MEDS: INSULIN REGULAR, HUMAN 100 UNIT/1 ML 3ML VIAL SQ SCH ×4 (07:30→20:24)
[2017-11-11] MEDS: VALSARTAN 80 MG TAB PO SCH (08:59)
[2017-11-11] MEDS: CLOPIDOGREL BISULFATE 75 MG TAB PO SCH (08:59)
[2017-11-11] MEDS: LEVOFLOXACIN 500MG/D5W 100ML 100 ML IV SCH ×2 (08:59→21:09)
[2017-11-11] MEDS: NIFEDIPINE CR 30 MG TAB PO SCH (08:59)
[2017-11-11] MEDS: LORATADINE 10 MG TAB PO SCH (08:59)
[2017-11-11] MEDS: DOCUSATE SODIUM 100 MG CAP PO SCH (08:59)
[2017-11-11] MEDS: GABAPENTIN 300 MG CAP PO SCH ×2 (08:59→20:26)
[2017-11-11] MEDS: PANTOPRAZOLE SOD 40 MG TABEC PO SCH (08:59)
[2017-11-11] MEDS: PREDNISONE 20 MG TAB PO SCH ×2 (08:59→16:46)
[2017-11-11] MEDS: NPH, HUMAN INSULIN ISOPHANE 100 UNIT/1 ML 3ML VIAL SQ SCH ×2 (08:59→20:24)
[2017-11-11] MEDS: FUROSEMIDE 20 MG TAB PO SCH (08:59)
[2017-11-11] MEDS: ASPIRIN 81 MG CHEW TAB PO SCH (08:59)
[2017-11-11] MEDS: ALBUTEROL SULFATE HFA 8GM INHALATION AEROSOL INH SCH ×2 (09:00→19:02)
[2017-11-11] MEDS: SERTRALINE HCL 100 MG TAB PO SCH (20:25)
[2017-11-11] MEDS: SIMVASTATIN 40 MG TAB PO SCH (20:25)
[2017-11-12] VITALS (7 sets, daily range): BP systolic 109–169; BP diastolic 55–78
[2017-11-12] MEDS: SODIUM CHLORIDE 0.9% 1000ML 1,000 ML IV SCH (00:55)
[2017-11-12] MEDS: VANCOMYCIN 1GM/NS 250 ML 250 ML IV SCH ×2 (05:00→17:21)
[2017-11-12] MEDS: FAMOTIDINE 20 MG/2 ML VIAL IV SCH (05:00)
[2017-11-12] MEDS: LEVOTHYROXINE SODIUM 50 MCG TAB PO SCH (05:24)
[2017-11-12] MEDS: ALBUTEROL SULFATE HFA 8GM INHALATION AEROSOL INH SCH ×2 (07:11→19:20)
[2017-11-12] MEDS: INSULIN REGULAR, HUMAN 100 UNIT/1 ML 3ML VIAL SQ SCH ×4 (07:30→21:46)
[2017-11-12] MEDS: ERGOCALCIFEROL 50,000 UNIT CAP PO SCH (08:30)
[2017-11-12] MEDS: ASPIRIN 81 MG CHEW TAB PO SCH (08:30)
[2017-11-12] MEDS: VALSARTAN 80 MG TAB PO SCH (08:30)
[2017-11-12] MEDS: DOCUSATE SODIUM 100 MG CAP PO SCH (08:30)
[2017-11-12] MEDS: PANTOPRAZOLE SOD 40 MG TABEC PO SCH (08:30)
[2017-11-12] MEDS: GABAPENTIN 300 MG CAP PO SCH ×2 (08:30→21:10)
[2017-11-12] MEDS: FUROSEMIDE 20 MG TAB PO SCH (08:30)
[2017-11-12] MEDS: NIFEDIPINE CR 30 MG TAB PO SCH (08:30)
[2017-11-12] MEDS: NPH, HUMAN INSULIN ISOPHANE 100 UNIT/1 ML 3ML VIAL SQ SCH ×2 (08:30→21:45)
[2017-11-12] MEDS: LORATADINE 10 MG TAB PO SCH (08:30)
[2017-11-12] MEDS: PREDNISONE 20 MG TAB PO SCH ×2 (08:30→17:21)
[2017-11-12] MEDS: CLOPIDOGREL BISULFATE 75 MG TAB PO SCH (08:30)
[2017-11-12] MEDS: LEVOFLOXACIN 500MG/D5W 100ML 100 ML IV SCH ×2 (10:10→21:19)
[2017-11-12] MEDS: FAMOTIDINE 20 MG TAB PO SCH (17:22)
[2017-11-12] MEDS: ACETAMINOPHEN/CODEINE 300MG - 30MG TAB PO PRN (17:37)
[2017-11-12] MEDS: SERTRALINE HCL 100 MG TAB PO SCH (21:10)
[2017-11-12] MEDS: SIMVASTATIN 40 MG TAB PO SCH (21:10)
[2017-11-13] VITALS (8 sets, daily range): BP systolic 121–167; BP diastolic 57–73
[2017-11-13] MEDS: VANCOMYCIN 1GM/NS 250 ML 250 ML IV SCH ×2 (05:25→17:00)
[2017-11-13] MEDS: LEVOTHYROXINE SODIUM 50 MCG TAB PO SCH (05:36)
[2017-11-13] MEDS: ALBUTEROL SULFATE HFA 8GM INHALATION AEROSOL INH SCH ×2 (07:04→20:00)
[2017-11-13] MEDS: INSULIN REGULAR, HUMAN 100 UNIT/1 ML 3ML VIAL SQ SCH ×4 (07:30→21:27)
[2017-11-13] MEDS: DOCUSATE SODIUM 100 MG CAP PO SCH (09:30)
[2017-11-13] MEDS: NPH, HUMAN INSULIN ISOPHANE 100 UNIT/1 ML 3ML VIAL SQ SCH ×2 (09:30→21:26)
[2017-11-13] MEDS: LEVOFLOXACIN 500MG/D5W 100ML 100 ML IV SCH ×2 (09:30→21:27)
[2017-11-13] MEDS: FAMOTIDINE 20 MG TAB PO SCH ×2 (09:30→17:21)
[2017-11-13] MEDS: LORATADINE 10 MG TAB PO SCH (09:30)
[2017-11-13] MEDS: PANTOPRAZOLE SOD 40 MG TABEC PO SCH (09:30)
[2017-11-13] MEDS: FUROSEMIDE 20 MG TAB PO SCH (09:30)
[2017-11-13] MEDS: NIFEDIPINE CR 30 MG TAB PO SCH (09:30)
[2017-11-13] MEDS: VALSARTAN 80 MG TAB PO SCH (09:30)
[2017-11-13] MEDS: PREDNISONE 20 MG TAB PO SCH ×2 (09:30→17:21)
[2017-11-13] MEDS: GABAPENTIN 300 MG CAP PO SCH ×2 (09:30→20:26)
[2017-11-13] MEDS: CLOPIDOGREL BISULFATE 75 MG TAB PO SCH (09:30)
[2017-11-13] MEDS: ACETAMINOPHEN/CODEINE 300MG - 30MG TAB PO PRN (14:15)
[2017-11-13] MEDS: SIMVASTATIN 40 MG TAB PO SCH (20:26)
[2017-11-13] MEDS: SERTRALINE HCL 100 MG TAB PO SCH (20:26)
[2017-11-13] MEDS: ASPIRIN 81 MG CHEW TAB PO SCH (20:26)
[2017-11-14] VITALS (7 sets, daily range): BP systolic 112–180; BP diastolic 51–77
[2017-11-14] MEDS: LEVOTHYROXINE SODIUM 50 MCG TAB PO SCH (06:00)
[2017-11-14 06:56] LABS: BASOPHILS % 0.1 % (0.0-1.0); EOSINOPHILS % 0.1 % (0.0-6.0); HEMATOCRIT 33.4 % (38.2-49.6); HEMOGLOBIN 10.3 g/dL (14.0-18.0); LYMPHOCYTES # (AUTO) 0.8 (1.0-3.2); LYMPHOCYTES % 10.8 % (18.0-39.1); MEAN CORPUSCULAR HEMOGLOBIN 25.4 pg (28-32); MEAN CORPUSCULAR HGB CONC 30.8 g/dL (31-35); MEAN CORPUSCULAR VOLUME 82.3 fL (81-99); MONOCYTES # (AUTO) 0.8 (0.2-0.8); MONOCYTES % 9.9 % (4.4-11.3); NEUTROPHILS # (AUTO) 5.9 (2.1-6.9); NEUTROPHILS % 78.3 % (38.7-80.0); PLATELET COUNT 279 x10e3/uL (140-360); RED BLOOD COUNT 4.06 x10e6/uL (4.3-5.7); RED CELL DISTRIBUTION WIDTH 17.8 % (11.7-14.4)
[2017-11-14] MEDS: INSULIN REGULAR, HUMAN 100 UNIT/1 ML 3ML VIAL SQ SCH ×4 (07:30→21:51)
[2017-11-14 07:31] LABS: ALBUMIN 3.2 g/dL (3.5-5.0); ANION GAP 16.5 mmol/L (8-16); CALCIUM 9.4 mg/dL (8.4-10.2); CREATININE, SERUM 1.89 mg/dL (0.72-1.25); POTASSIUM 4.5 mmol/L (3.5-5.1)
[2017-11-14] MEDS: FAMOTIDINE 20 MG TAB PO SCH ×2 (07:48→17:29)
[2017-11-14] MEDS: VALSARTAN 80 MG TAB PO SCH (09:00)
[2017-11-14] MEDS: NIFEDIPINE CR 30 MG TAB PO SCH (09:00)
[2017-11-14] MEDS: ALBUTEROL SULFATE HFA 8GM INHALATION AEROSOL INH SCH ×2 (09:00→18:55)
[2017-11-14] MEDS: PANTOPRAZOLE SOD 40 MG TABEC PO SCH (09:45)
[2017-11-14] MEDS: FUROSEMIDE 20 MG TAB PO SCH (09:45)
[2017-11-14] MEDS: DOCUSATE SODIUM 100 MG CAP PO SCH (09:45)
[2017-11-14] MEDS: CLOPIDOGREL BISULFATE 75 MG TAB PO SCH (09:45)
[2017-11-14] MEDS: PREDNISONE 20 MG TAB PO SCH ×2 (09:45→17:29)
[2017-11-14] MEDS: GABAPENTIN 300 MG CAP PO SCH ×2 (09:45→20:51)
[2017-11-14] MEDS: LORATADINE 10 MG TAB PO SCH (09:45)
[2017-11-14] MEDS: NPH, HUMAN INSULIN ISOPHANE 100 UNIT/1 ML 3ML VIAL SQ SCH ×2 (10:00→21:41)
[2017-11-14] MEDS: LEVOFLOXACIN 500MG/D5W 100ML 100 ML IV SCH ×2 (10:33→22:29)
--- NOTE | 2017-11-14 14:02 | Consultation ---
DATE OF CONSULTATION: November 14, 2017 NEUROLOGY CONSULTATION HISTORY OF PRESENT ILLNESS: Mr. Willard is a 77-year-old, kibqa-fymn-letosdxa man with a past medical history significant for hypertension, insulin-dependent diabetes mellitus type 2, coronary artery disease, and questionable seizures, who was admitted to [facility] on November 09, 2017, for treatment of cellulitis. On November 13, 2017, the patient was sitting on the couch in his room. He stood to hand something to a nurse. As he was standing, the patient became dizzy. Mr. Willard cannot further describe the dizzy sensation. However, he does not report lightheadedness or a vertiginous sensation. The next thing Mr. Willard remembers was the nurse patting him on the back and asking if he was okay. According to the nurse's note, as Mr. Willard was standing to hand her something, he abruptly lost consciousness and fell back to the couch with shaking of the arms and legs. This activity lasted for a few seconds. Mr. Willard quickly regained consciousness and was oriented to person, place and time. There was no tongue biting or bladder/bowel incontinence. The patient's primary care attending, Dr. Chapman, was notified of the episode. At that time, a neurology consultation for possible seizure was placed. Mr. Willard reports experiencing multiple "shaking spells" over the past 2 to 3 years. Oftentimes, the patient feels dizzy before the shaking spell starts. When he experiences this dizzy sensation, the patient holds on to a piece of furniture or some other stationary object for approximately 1 minute until the shaking passes. Prior to the episode yesterday (11/13/2017), the patient had never lost consciousness during one of these episodes. The patient does not report a personal history of febrile seizures. There is no known family history of seizure disorder. The patient does not report prior head trauma or central nervous system infection (meningitis/encephalitis). REVIEW OF SYSTEMS: Cellulitis, dizziness, questionable seizures. Otherwise, a 12-point review of systems was negative. PAST MEDICAL HISTORY: Hypertension, hyperlipidemia, insulin-dependent diabetes mellitus type 2, coronary artery disease, possible congestive heart failure, COPD, asthma, thyroid disease, gout, osteoarthritis, CKD stage III, depression, prior history of headaches, possible seizures, early stages of colon and bladder cancer. PAST SURGICAL HISTORY: Right ankle surgery, right shoulder surgery, cardiac stent placement, nerve ablation to the left knee, 3 nasal surgeries, tonsillectomy, appendectomy. PAST HOSPITALIZATIONS: For surgeries and procedures listed above, multiple hospitalizations for respiratory infections, hospitalization for injury to the left foreleg, hospitalizations for multiple falls. FAMILY HISTORY: The patient's paternal and maternal grandparents are . Their medical histories are unknown. The patient's father is . He had hypertension, coronary artery disease, elevated blood sugars, and arthritis. The patient's mother is . She had hypertension, coronary artery disease, elevated blood sugars, and arthritis as well. The patient has a sister who is from dementia. She had colon cancer, hypertension, and arthritis. The patient has 1 brother who is living. His medical history includes colon cancer, mental retardation, arthritis, and schizophrenia. The patient has 1 son who is from spina bifida. A daughter has spina bifida occulta and arthritis. The patient's remaining children are healthy. SOCIAL HISTORY: The patient is . He obtained his GED. He was in the for 23 years. 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 The patient is a former smoker. He quit smoking cigarettes in 1991 when he was diagnosed with COPD. The patient has a remote history of alcohol use. He does not endorse current or prior recreational drug use. HOME MEDICATIONS 1. Acetaminophen with codeine 300 mg by mouth every 6 hours as needed for pain. 2. ProAir inhaler 2 puffs inhaled twice daily. 3. Allopurinol 150 mg by mouth daily. 4. Aspirin 81 mg by mouth daily. 5. Cetirizine 10 mg by mouth daily. 6. Plavix 75 mg by mouth daily. 7. Colace 100 mg by mouth daily. 8. Lasix 60 mg by mouth daily. 9. Gabapentin 300 mg by mouth daily. 10. Gabapentin 600 mg by mouth at bedtime. 11. Levothyroxine 50 mcg by mouth daily. 12. Melatonin 10 mg by mouth at bedtime as needed for insomnia. 13. Nifedipine ER 60 mg by mouth daily. 14. Novolin N 50 units subcutaneously daily. 15. Novolin N 60 units subcutaneously at 9 p.m. daily. 16. Omeprazole 40 mg by mouth daily. 17. Tamiflu 75 mg by mouth twice daily for 2 days. 18. Prednisone 20 mg by mouth twice daily for 3 days. 19. Sertraline 100 mg by mouth at bedtime. 20. Simvastatin 40 mg by mouth at bedtime daily. 21. Valsartan 80 mg by mouth daily. 22. Vitamin D2 50,000 units by mouth weekly. ALLERGIES: PENICILLIN. NO KNOWN FOOD ALLERGIES. NO KNOWN ALLERGY TO LATEX. NO KNOWN ALLERGIES TO CONTRAST MATERIALS. PHYSICAL EXAMINATION VITAL SIGNS: Height 70 inches, weight 303 pounds, BMI 43.5 kg per meter squared, blood pressure 180/77 mmHg, pulse 73 beats per minute, respiratory rate 18 breaths per minute, oxygen saturation 96% on room air. GENERAL: The patient is awake and alert. Does not appear distressed. Obese. HEENT: Normocephalic and atraumatic. Pupils are equal, round and reactive to light. Moist mucous membranes. NECK: Supple. No appreciable thyromegaly. No appreciable carotid bruits. CARDIOVASCULAR: S1, S2, regular rate and rhythm. No murmurs, rubs or gallops. RESPIRATORY: Clear to auscultation bilaterally. No wheezes, rhonchi or rales. EXTREMITIES: The skin is warm and dry. No clubbing or cyanosis. Positive for 2+ pitting pretibial edema. The posterior tibial and dorsalis pedis pulses are 1+ and symmetric. SKIN: Changes consistent with cellulitis. Ecchymoses over both arms and both legs. NEUROLOGIC: Memory/attention: The patient is awake and alert. Oriented to person, place, time, and situation. CRANIAL NERVES: Cranial nerve I: Not tested. Cranial nerves II, III, IV, : Pupils are equal and round, react briskly to light (from 4 mm to 2 mm). Extraocular movements intact. No nystagmus. Cranial nerve V: Sensation to light touch and pinprick is intact in the bilateral V1 through V3 distributions. Strength of the temporalis and masseter muscles is within normal limits. Cranial nerve VII: The face is symmetric, as are all facial movements. Strength is within normal limits. Cranial nerve VIII: Hearing is intact to finger rub bilaterally. Cranial nerves IX and X: The soft palate elevates equally and symmetrically. Cranial nerve XI: Normal strength of the bilateral sternocleidomastoid and trapezius muscles. Cranial nerve XII: The tongue protrudes midline and moves symmetrically from side to side. STRENGTH: Bulk is normal, and strength is 5/5 in the bilateral deltoids, biceps, triceps, wrist flexors and extensors, finger flexors and extensors, intrinsic hand muscles, hip flexors, knee flexors and extensors, ankle dorsiflexion and plantar flexion, and intrinsic foot muscles. Tone is normal. DTRs: Deep tendon reflexes are 1+ and symmetric at the triceps and biceps, trace and symmetric at the brachioradialis, absent and symmetric at the patellas and Achilles. Plantar responses are flexor bilaterally. SENSATION: Intact to light touch and pinprick in both arms. Sensation is decreased to light touch over the right foreleg. Sensation is decreased to pinprick over the left foreleg. CEREBELLAR: Msbzvr-uzdg-kktyjm and heel-trinidad movements are intact without dysmetria or other impairment. Rapid alternating movements are intact. GAIT: Deferred. SPEECH: Spontaneous speech is normal without appreciable dysarthria or aphasia. Repetition is intact. INVOLUNTARY MOVEMENTS: None. PRONATOR DRIFT: None. LABORATORY DATA: Sodium 139, potassium 4.5, chloride 100, carbon dioxide 27, anion gap 16.5, BUN 33, creatinine 1.89. Estimated GFR 35. ZWU-nd-swqbsimyxx ratio 17. Glucose 179, calcium 9.4, magnesium 1.6, total bilirubin 0.4, AST 24, ALT 20, alkaline phosphatase 109, total protein 6.3, albumin 3.2, globulin 3.1, jhfniqm-zs-xvbgncce ratio 1.0. CBC with differential and platelets showed white blood cell count 7.57 with 78.3% neutrophils, 10.8% lymphocytes, 9.9% monocytes, 0.1% eosinophils, 0.1% basophils. The hemoglobin and hematocrit are 10.3 and 33.4 respectively. The platelet count is 279. DIAGNOSTIC STUDIES: CT of the brain without contrast on November 09, 2017: There is no evidence of recent large territorial ischemia, hemorrhage, mass or mass effect. ASSESSMENT AND PLAN: Mr. Willard is a 77-year-old, evths-ncww-xxoykrbe man with past medical history as detailed above admitted to [facility] on November 09, 2017, with cellulitis of both legs. Yesterday (November 13, 2017), the patient was witnessed to have an episode characterized by brief loss of consciousness and shaking of all extremities. This activity lasted for several seconds. When the patient regained consciousness, he was oriented to person, place, time and situation. There was no tongue biting or bladder/bowel incontinence. The patient's neurological examination is more or less nonfocal. The patient's laboratory data and diagnostic studies have been reviewed and are documented above. The patient's primary care attending, Dr. Chapman, medical staff at [facility], and one of the patient's daughters are concerned Mr. Willard has been experiencing seizures for the past 2 to 3 years (please see history of present illness). It is possible these episodes do represent seizures. However, until yesterday, Mr. Willard has never lost consciousness during one of his "shaking spells." This is highly atypical for what would have to be a generalized tonic-clonic seizure. With generalized seizure activity, patients lose consciousness. Secondly, the patient is alert and oriented to person, place and time once he regains consciousness. Once again, this is highly atypical with generalized seizure activity. A vast majority of generalized seizures are followed by a postictal period characterized by confusion and tiredness lasting at least 10 to 15 minutes. Recommendations are as follows: 1. MRI of the brain without contrast. 2. Routine EEG. 3. Defer treatment of the remaining medical comorbidities to the primary and other services. Thank you for this consultation. I will continue to follow the patient while he remains in the hospital. TIME SPENT: 70 minutes. Job#: [id number] ANGIE CHÁVEZ
--- NOTE | 2017-11-14 15:01 | Diagnostic Imaging Report ---
EXAMINATION: MRI of the brain without contrast. HISTORY: Seizures, swelling of the right lower extremity/cellulitis COMPARISON: None. TECHNIQUE: Sagittal T2; axial DWI, T2, FLAIR, T1-IR, T2 gradient echo; coronal FLAIR. IMAGE QUALITY: Adequate. FINDINGS: Parenchyma: 1. No abnormal signal intensity 2. No mass, hemorrhage, acute or chronic infarcts. Skull: Unremarkable. Vessels: Expected flow voids present in the major arteries and dural sinuses. Extra-axial spaces: No abnormal signal intensity or mass effect. Brain volume: Within normal limits for age. Ventricles: No hydrocephalus or displacement. Foramen magnum: Unremarkable. Sella: Unremarkable. Paranasal / mastoid sinuses: No significant inflammatory disease. IMPRESSION: Within normal limits brain MRI, particularly no mass, hemorrhage or acute infarct. Signed by: Dr. Rose Espana M.D. on 11/14/2017 2:58 PM
[2017-11-14] MEDS: SERTRALINE HCL 100 MG TAB PO SCH (20:51)
[2017-11-14] MEDS: ASPIRIN 81 MG CHEW TAB PO SCH (20:51)
[2017-11-14] MEDS: SIMVASTATIN 40 MG TAB PO SCH (20:51)
[2017-11-15] VITALS (8 sets, daily range): BP systolic 116–193; BP diastolic 58–86
[2017-11-15] MEDS: LEVOTHYROXINE SODIUM 50 MCG TAB PO SCH (05:32)
[2017-11-15] MEDS: INSULIN REGULAR, HUMAN 100 UNIT/1 ML 3ML VIAL SQ SCH ×4 (07:30→23:35)
[2017-11-15] MEDS: ALBUTEROL SULFATE HFA 8GM INHALATION AEROSOL INH SCH ×2 (07:30→20:30)
[2017-11-15] MEDS: FAMOTIDINE 20 MG TAB PO SCH ×2 (07:30→17:34)
[2017-11-15] MEDS: GABAPENTIN 300 MG CAP PO SCH ×2 (08:14→20:38)
[2017-11-15] MEDS: PREDNISONE 20 MG TAB PO SCH ×2 (08:14→17:34)
[2017-11-15] MEDS: CLOPIDOGREL BISULFATE 75 MG TAB PO SCH (08:14)
[2017-11-15] MEDS: VALSARTAN 80 MG TAB PO SCH (08:14)
[2017-11-15] MEDS: DOCUSATE SODIUM 100 MG CAP PO SCH (08:14)
[2017-11-15] MEDS: FUROSEMIDE 20 MG TAB PO SCH (08:14)
[2017-11-15] MEDS: NIFEDIPINE CR 30 MG TAB PO SCH (08:14)
[2017-11-15] MEDS: PANTOPRAZOLE SOD 40 MG TABEC PO SCH (08:14)
[2017-11-15] MEDS: LORATADINE 10 MG TAB PO SCH (08:14)
[2017-11-15] MEDS: NPH, HUMAN INSULIN ISOPHANE 100 UNIT/1 ML 3ML VIAL SQ SCH ×2 (09:00→23:34)
[2017-11-15] MEDS: LEVOFLOXACIN 500MG/D5W 100ML 100 ML IV SCH ×2 (10:22→22:27)
[2017-11-15] MEDS: SIMVASTATIN 40 MG TAB PO SCH (20:38)
[2017-11-15] MEDS: ASPIRIN 81 MG CHEW TAB PO SCH (20:38)
[2017-11-15] MEDS: SERTRALINE HCL 100 MG TAB PO SCH (20:38)
[2017-11-16] VITALS (10 sets, daily range): BP systolic 112–141; BP diastolic 56–60
[2017-11-16] MEDS: LEVOTHYROXINE SODIUM 50 MCG TAB PO SCH (05:47)
[2017-11-16] MEDS: INSULIN REGULAR, HUMAN 100 UNIT/1 ML 3ML VIAL SQ SCH ×4 (07:30→21:00)
[2017-11-16] MEDS: FAMOTIDINE 20 MG TAB PO SCH ×2 (08:15→17:23)
[2017-11-16] MEDS: ALBUTEROL SULFATE HFA 8GM INHALATION AEROSOL INH SCH ×2 (09:00→17:00)
[2017-11-16] MEDS: DOCUSATE SODIUM 100 MG CAP PO SCH (09:30)
[2017-11-16] MEDS: LORATADINE 10 MG TAB PO SCH (09:30)
[2017-11-16] MEDS: NIFEDIPINE CR 30 MG TAB PO SCH (09:31)
[2017-11-16] MEDS: GABAPENTIN 300 MG CAP PO SCH ×2 (09:31→21:00)
[2017-11-16] MEDS: PANTOPRAZOLE SOD 40 MG TABEC PO SCH (09:31)
[2017-11-16] MEDS: PREDNISONE 20 MG TAB PO SCH ×2 (09:31→17:23)
[2017-11-16] MEDS: VALSARTAN 80 MG TAB PO SCH (09:31)
[2017-11-16] MEDS: FUROSEMIDE 20 MG TAB PO SCH (09:31)
[2017-11-16] MEDS: CLOPIDOGREL BISULFATE 75 MG TAB PO SCH (09:31)
[2017-11-16] MEDS: NPH, HUMAN INSULIN ISOPHANE 100 UNIT/1 ML 3ML VIAL SQ SCH ×2 (09:32→21:00)
[2017-11-16] MEDS: LEVOFLOXACIN 500MG/D5W 100ML 100 ML IV SCH ×2 (10:00→21:58)
--- NOTE | 2017-11-16 17:10 | Diagnostic Imaging Report ---
PROCEDURE:X-RAY RIGHT FOREARM, TWO VIEWS COMPARISON:None. INDICATIONS:FALL X 2, RIGHT FOREARM PAIN FINDINGS: There are no fractures, dislocations, lytic or blastic lesions. Olecranon enthesophyte. The bones are well-mineralized. The soft-tissues are unremarkable. CONCLUSION: No acute osseous abnormalities. Dictated by: Joe Todd M.D. on 11/16/2017 at 17:10 Electronically approved by: Joe Todd M.D. on 11/16/2017 at 17:10
[2017-11-16] MEDS: SIMVASTATIN 40 MG TAB PO SCH (21:00)
[2017-11-16] MEDS: SERTRALINE HCL 100 MG TAB PO SCH (21:00)
[2017-11-16] MEDS: ASPIRIN 81 MG CHEW TAB PO SCH (21:00)
[2017-11-17] VITALS: BP 125/57
[2017-11-17 04:00] VITALS: BP 113/56
[2017-11-17] MEDS: INSULIN REGULAR, HUMAN 100 UNIT/1 ML 3ML VIAL SQ SCH ×4 (07:30→21:00)
[2017-11-17 07:48] VITALS: BP 141/66
[2017-11-17] MEDS: FAMOTIDINE 20 MG TAB PO SCH ×2 (08:30→16:13)
[2017-11-17] MEDS: LEVOTHYROXINE SODIUM 50 MCG TAB PO SCH (08:30)
[2017-11-17] MEDS: ALBUTEROL SULFATE HFA 8GM INHALATION AEROSOL INH SCH ×2 (09:00→19:28)
[2017-11-17] MEDS: NPH, HUMAN INSULIN ISOPHANE 100 UNIT/1 ML 3ML VIAL SQ SCH ×2 (09:00→21:00)
[2017-11-17] MEDS: NIFEDIPINE CR 30 MG TAB PO SCH (09:18)
[2017-11-17] MEDS: VALSARTAN 80 MG TAB PO SCH (09:18)
[2017-11-17] MEDS: DOCUSATE SODIUM 100 MG CAP PO SCH (09:18)
[2017-11-17] MEDS: GABAPENTIN 300 MG CAP PO SCH ×2 (09:18→21:00)
[2017-11-17] MEDS: CLOPIDOGREL BISULFATE 75 MG TAB PO SCH (09:18)
[2017-11-17] MEDS: FUROSEMIDE 20 MG TAB PO SCH (09:18)
[2017-11-17] MEDS: PANTOPRAZOLE SOD 40 MG TABEC PO SCH (09:18)
[2017-11-17] MEDS: LORATADINE 10 MG TAB PO SCH (09:18)
[2017-11-17 11:29] VITALS: BP 175/76
[2017-11-17 16:00] VITALS: BP 108/54
[2017-11-17 20:00] VITALS: BP 136/65
[2017-11-17] MEDS: SERTRALINE HCL 100 MG TAB PO SCH (21:00)
[2017-11-17] MEDS: ASPIRIN 81 MG CHEW TAB PO SCH (21:00)
[2017-11-17] MEDS: SIMVASTATIN 40 MG TAB PO SCH (21:00)
[2017-11-18] VITALS: BP 117/60
[2017-11-18 04:00] VITALS: BP 114/63
[2017-11-18] MEDS: LEVOTHYROXINE SODIUM 50 MCG TAB PO SCH (05:58)
[2017-11-18] MEDS: FAMOTIDINE 20 MG TAB PO SCH ×2 (07:30→16:31)
[2017-11-18] MEDS: INSULIN REGULAR, HUMAN 100 UNIT/1 ML 3ML VIAL SQ SCH ×4 (07:30→20:28)
[2017-11-18] MEDS: ALBUTEROL SULFATE HFA 8GM INHALATION AEROSOL INH SCH ×2 (07:45→19:48)
[2017-11-18 08:00] VITALS: BP 135/65
[2017-11-18] MEDS: LORATADINE 10 MG TAB PO SCH (09:00)
[2017-11-18] MEDS: CLOPIDOGREL BISULFATE 75 MG TAB PO SCH (09:00)
[2017-11-18] MEDS: NIFEDIPINE CR 30 MG TAB PO SCH (09:00)
[2017-11-18] MEDS: GABAPENTIN 300 MG CAP PO SCH ×2 (09:00→20:25)
[2017-11-18] MEDS: DOCUSATE SODIUM 100 MG CAP PO SCH (09:00)
[2017-11-18] MEDS: NPH, HUMAN INSULIN ISOPHANE 100 UNIT/1 ML 3ML VIAL SQ SCH ×2 (09:00→20:28)
[2017-11-18] MEDS: PANTOPRAZOLE SOD 40 MG TABEC PO SCH (09:00)
[2017-11-18] MEDS: VALSARTAN 80 MG TAB PO SCH (09:00)
[2017-11-18] MEDS: FUROSEMIDE 20 MG TAB PO SCH (09:00)
[2017-11-18 12:00] VITALS: BP 159/73
[2017-11-18] MEDS: VANCOMYCIN 1GM/NS 250 ML 250 ML IV SCH ×2 (12:57→23:32)
[2017-11-18 14:19] LABS: BASOPHILS % 0.2 % (0.0-1.0); EOSINOPHILS # (AUTO) 0.2 (0.0-0.4); EOSINOPHILS % 1.5 % (0.0-6.0); HEMATOCRIT 33.3 % (38.2-49.6); HEMOGLOBIN 10.4 g/dL (14.0-18.0); LYMPHOCYTES % 17.7 % (18.0-39.1); MEAN CORPUSCULAR HEMOGLOBIN 25.2 pg (28-32); MEAN CORPUSCULAR HGB CONC 31.2 g/dL (31-35); MEAN CORPUSCULAR VOLUME 80.6 fL (81-99); MONOCYTES # (AUTO) 1.1 (0.2-0.8); MONOCYTES % 9.8 % (4.4-11.3); NEUTROPHILS # (AUTO) 7.6 (2.1-6.9); NEUTROPHILS % 69.1 % (38.7-80.0); PLATELET COUNT 224 x10e3/uL (140-360); RED BLOOD COUNT 4.13 x10e6/uL (4.3-5.7); RED CELL DISTRIBUTION WIDTH 17.7 % (11.7-14.4)
[2017-11-18 14:40] LABS: ALBUMIN 3.1 g/dL (3.5-5.0); ALBUMIN/GLOBULIN RATIO 1.1 (0.8-2.0); ANION GAP 11.7 mmol/L (8-16); CALCIUM 8.7 mg/dL (8.4-10.2); CREATININE, SERUM 1.79 mg/dL (0.72-1.25); POTASSIUM 3.7 mmol/L (3.5-5.1)
[2017-11-18 16:00] VITALS: BP 105/58
[2017-11-18] MEDS: TRAMADOL HCL 50 MG TAB PO PRN (16:31)
[2017-11-18 20:00] VITALS: BP 117/56
[2017-11-18] MEDS: ASPIRIN 81 MG CHEW TAB PO SCH (20:25)
[2017-11-18] MEDS: SIMVASTATIN 40 MG TAB PO SCH (20:25)
[2017-11-18] MEDS: SERTRALINE HCL 100 MG TAB PO SCH (20:25)
[2017-11-19] VITALS (7 sets, daily range): BP systolic 117–162; BP diastolic 58–72
[2017-11-19] MEDS: LEVOTHYROXINE SODIUM 50 MCG TAB PO SCH (05:50)
[2017-11-19] MEDS: FAMOTIDINE 20 MG TAB PO SCH ×2 (07:30→16:30)
[2017-11-19] MEDS: INSULIN REGULAR, HUMAN 100 UNIT/1 ML 3ML VIAL SQ SCH ×4 (07:30→20:59)
[2017-11-19] MEDS: ALBUTEROL SULFATE HFA 8GM INHALATION AEROSOL INH SCH ×2 (07:51→21:35)
[2017-11-19] MEDS: NPH, HUMAN INSULIN ISOPHANE 100 UNIT/1 ML 3ML VIAL SQ SCH ×2 (08:54→20:58)
[2017-11-19] MEDS: FUROSEMIDE 20 MG TAB PO SCH (09:00)
[2017-11-19] MEDS: DOCUSATE SODIUM 100 MG CAP PO SCH (09:00)
[2017-11-19] MEDS: PANTOPRAZOLE SOD 40 MG TABEC PO SCH (09:00)
[2017-11-19] MEDS: CLOPIDOGREL BISULFATE 75 MG TAB PO SCH (09:00)
[2017-11-19] MEDS: ERGOCALCIFEROL 50,000 UNIT CAP PO SCH (09:00)
[2017-11-19] MEDS: NIFEDIPINE CR 30 MG TAB PO SCH (09:00)
[2017-11-19] MEDS: VALSARTAN 80 MG TAB PO SCH (09:00)
[2017-11-19] MEDS: LORATADINE 10 MG TAB PO SCH (09:00)
[2017-11-19] MEDS: GABAPENTIN 300 MG CAP PO SCH ×2 (09:00→20:57)
[2017-11-19] MEDS: VANCOMYCIN 1GM/NS 250 ML 250 ML IV SCH (12:00)
[2017-11-19] MEDS: TRAMADOL HCL 50 MG TAB PO PRN (14:23)
[2017-11-19] MEDS: SERTRALINE HCL 100 MG TAB PO SCH (20:57)
[2017-11-19] MEDS: SIMVASTATIN 40 MG TAB PO SCH (20:57)
[2017-11-19] MEDS: ASPIRIN 81 MG CHEW TAB PO SCH (20:57)
[2017-11-20] VITALS: BP 121/58
[2017-11-20] MEDS: VANCOMYCIN 1GM/NS 250 ML 250 ML IV SCH ×2 (00:43→13:00)
[2017-11-20 04:45] VITALS: BP 153/69
[2017-11-20] MEDS: LEVOTHYROXINE SODIUM 50 MCG TAB PO SCH (05:50)
[2017-11-20] MEDS: INSULIN REGULAR, HUMAN 100 UNIT/1 ML 3ML VIAL SQ SCH ×2 (07:30→13:55)
[2017-11-20] MEDS: FAMOTIDINE 20 MG TAB PO SCH ×2 (07:30→16:30)
[2017-11-20 07:49] VITALS: BP 163/71
[2017-11-20] MEDS: DOCUSATE SODIUM 100 MG CAP PO SCH (08:52)
[2017-11-20] MEDS: LORATADINE 10 MG TAB PO SCH (08:52)
[2017-11-20] MEDS: GABAPENTIN 300 MG CAP PO SCH (08:53)
[2017-11-20] MEDS: CLOPIDOGREL BISULFATE 75 MG TAB PO SCH (08:53)
[2017-11-20] MEDS: NIFEDIPINE CR 30 MG TAB PO SCH (08:53)
[2017-11-20] MEDS: FUROSEMIDE 20 MG TAB PO SCH (08:53)
[2017-11-20] MEDS: VALSARTAN 80 MG TAB PO SCH (08:53)
[2017-11-20] MEDS: PANTOPRAZOLE SOD 40 MG TABEC PO SCH (08:54)
[2017-11-20] MEDS: NPH, HUMAN INSULIN ISOPHANE 100 UNIT/1 ML 3ML VIAL SQ SCH (08:54)
[2017-11-20] MEDS: ALBUTEROL SULFATE HFA 8GM INHALATION AEROSOL INH SCH (09:00)
[2017-11-20] MEDS: TRAMADOL HCL 50 MG TAB PO PRN (09:33)
[2017-11-20 11:26] VITALS: BP 119/53
[2017-11-20 16:04] VITALS: BP 101/55
== END 2017-11-20 18:57 | disposition home health service (06) | DRG 603 ==
LOC: ER 16:15 → ERHOLD 17:54 → MED/SURG3 19:10
PROVIDERS: ADMIT Internal Medicine; ATTEND Internal Medicine
DX: L03.116 Cellulitis of left lower limb (principal); E11.22 Type 2 diabetes mellitus with diabetic chronic kidney disease; R56.9 Unspecified convulsions; Z68.41 Body mass index [BMI] 40.0-44.9, adult; I12.9 Hypertensive chronic kidney disease with stage 1 through stage 4 chronic kidney disease, or unspecified chronic kidney disease; N18.3 Chronic kidney disease, stage 3 (moderate); Z79.4 Long term (current) use of insulin; D64.9 Anemia, unspecified; E66.9 Obesity, unspecified; G47.33 Obstructive sleep apnea (adult) (pediatric); I25.10 Atherosclerotic heart disease of native coronary artery without angina pectoris; J44.9 Chronic obstructive pulmonary disease, unspecified; J45.909 Unspecified asthma, uncomplicated; Z87.891 Personal history of nicotine dependence
CPT/HCPCS: 36415; 70450; 70551; 71045; 80053; 80061; 80202; 81001; 82550; 82553; 82948; 83690; 83735; 83880; 84100; 84443; 84484; 85025; 85610; 85730; 86850; 86900; 87040; 87086; 93005; 93306; 94640; 94660; 95812; 96360; J1956; J3370; J7030

== ENCOUNTER 2018-01-30 15:21 | Inpatient (IN) | payer MEDICARE, OTHER ==
[~2018-01-30] VITALS: Ht 177.8 cm; Wt 129.7 kg
[2018-01-30] MEDS ORDERED: SODIUM CHLORIDE 0.9% 1000ML 1,000 ML IV STA (17:04)
[2018-01-30 17:14] LABS: BASOPHILS # (AUTO) 0.1 (0.0-0.1); BASOPHILS % 0.7 % (0.0-1.0); EOSINOPHILS # (AUTO) 0.3 (0.0-0.4); EOSINOPHILS % 3.5 % (0.0-6.0); HEMATOCRIT 30.3 % (38.2-49.6); LYMPHOCYTES # (AUTO) 1.1 (1.0-3.2); LYMPHOCYTES % 12.9 % (18.0-39.1); MEAN CORPUSCULAR HEMOGLOBIN 23.3 pg (28-32); MEAN CORPUSCULAR HGB CONC 29.7 g/dL (31-35); MEAN CORPUSCULAR VOLUME 78.5 fL (81-99); MONOCYTES # (AUTO) 0.9 (0.2-0.8); MONOCYTES % 11.1 % (4.4-11.3); NEUTROPHILS % 71.3 % (38.7-80.0); PLATELET COUNT 223 x10e3/uL (140-360); RED BLOOD COUNT 3.86 x10e6/uL (4.3-5.7); RED CELL DISTRIBUTION WIDTH 18.5 % (11.7-14.4)
[2018-01-30] MEDS ORDERED: ASPIRIN 81 MG CHEW TAB PO ONE ×2 (17:15→18:15)
[2018-01-30 17:28] LABS: ALBUMIN 3.4 g/dL (3.5-5.0); ALBUMIN/GLOBULIN RATIO 1.1 (0.8-2.0); ANION GAP 14.8 mmol/L (8-16); CALCIUM 9.2 mg/dL (8.4-10.2); CREATININE, SERUM 1.69 mg/dL (0.72-1.25); POTASSIUM 3.8 mmol/L (3.5-5.1)
[2018-01-30 17:35] LABS: CREATINE KINASE MB 2.4 ng/mL (0-5.0)
[2018-01-30] MEDS ORDERED: DEXTROSE 50% SYRINGE 50 ML IV ONE (17:36)
[2018-01-30] MEDS ORDERED: DEXTROSE 50% SYRINGE 50 ML IV STA (17:57)
[2018-01-30] MEDS ORDERED: MORPHINE SULFATE 2 MG/ML SYR IV PRN (18:00)
[2018-01-30] MEDS ORDERED: ONDANSETRON HCL INJ 2 MG/ML VIAL IV PRN (18:15)
[2018-01-30 20:00] VITALS: BP 136/73
--- NOTE | 2018-01-30 20:28 | Diagnostic Imaging Report ---
History: Passed out Comparison studies: Head CT on 11/09/2017, brain MRI on 11/14/2017 Technique: Axial images were obtained from the skull base to the vertex. Coronal and sagittal images reconstructed from the axial data. Intravenous contrast: None Findings: Scalp/skull: No abnormalities. Extra-axial spaces: No masses. No fluid collections. Brain sulci: Appropriate for age Ventricles: Normal in size and configuration. No hydrocephalus. Parenchyma: No abnormal densities. No masses, hemorrhage, acute or chronic cortical vascular insults. Sellar/suprasellar region: No abnormalities. Craniocervical junction: Patent foramen magnum. No Chiari one malformation. Incidental findings: Atherosclerotic calcifications in the carotid siphons and right vertebral artery. Bilateral lens prosthesis. Impression: No intracranial abnormalities. No changes when compared to the previous head CT on the previous MRI. Signed by: Dr. Hank Chandler M.D. on 01/30/2018 8:25 PM
[2018-01-30 20:41] LABS: CLARITY,URINE CLEAR (CLEAR); COLOR,URINE STRAW (YELLOW)
[2018-01-30 20:42] LABS: BILIRUBIN,URINE NEGATIVE (NEGATIVE); KETONES,URINE NEGATIVE (NEGATIVE); LEUKOCYTE ESTERASE ,URINE TRACE (NEGATIVE); NITRITE,URINE NEGATIVE (NEGATIVE); PROTEIN,URINE DIPSTICK NEGATIVE (NEGATIVE); URINE UROBILINOGEN 0.2 mg/dL (0.2 - 1)
[2018-01-30 20:55] LABS: EPITHELIAL CELLS,URINE FEW /LPF
[2018-01-31] VITALS (7 sets, daily range): BP systolic 128–165; BP diastolic 63–72
[2018-01-31] MEDS ORDERED: DEXTROSE 50% SYRINGE 50 ML IV PRN (01:45)
[2018-01-31 01:54] LABS: CREATINE KINASE MB 1.7 ng/mL (0-5.0)
[2018-01-31] MEDS ORDERED: ACETAMINOPHEN/CODEINE 300MG - 30MG TAB PO PRN (04:45)
[2018-01-31] MEDS ORDERED: MELATONIN 3 MG TAB PO PRN ×2 (04:45→05:30)
[2018-01-31] MEDS: LEVOTHYROXINE SODIUM 50 MCG TAB PO SCH ×2 (05:45→05:58)
[2018-01-31] MEDS: CLOPIDOGREL BISULFATE 75 MG TAB PO SCH (08:57)
[2018-01-31] MEDS: FUROSEMIDE 20 MG TAB PO SCH (08:57)
[2018-01-31] MEDS: LORATADINE 10 MG TAB PO SCH (08:57)
[2018-01-31] MEDS: DOCUSATE SODIUM 100 MG CAP PO SCH (08:57)
[2018-01-31] MEDS: VALSARTAN 80 MG TAB PO SCH (08:57)
[2018-01-31] MEDS: GABAPENTIN 300 MG CAP PO SCH (08:57)
[2018-01-31] MEDS: PANTOPRAZOLE SOD 40 MG TABEC PO SCH (08:58)
[2018-01-31] MEDS: NIFEDIPINE CR 30 MG TAB PO SCH (08:58)
[2018-01-31] MEDS: ALLOPURINOL 100 MG TAB PO SCH (08:58)
[2018-01-31] MEDS ORDERED: ASPIRIN 81 MG ENTERIC COATED PO SCH ×2 (09:00→21:00)
[2018-01-31] MEDS: ALBUTEROL SULFATE HFA 8GM INHALATION AEROSOL INH SCH ×2 (09:00→17:00)
[2018-01-31] MEDS ORDERED: NON-FORMULARY MEDICATION (Nifedipine (Nifedipine Er) 60 MG) PO SCH (09:00)
[2018-01-31] MEDS ORDERED: NON-FORMULARY MEDICATION (Cetirizine Hcl 10 MG) PO SCH (09:00)
[2018-01-31 09:41] LABS: CREATINE KINASE MB 1.7 ng/mL (0-5.0)
[2018-01-31] MEDS ORDERED: SIMVASTATIN 40 MG TAB PO SCH (21:00)
[2018-01-31] MEDS ORDERED: GABAPENTIN 300 MG CAP PO SCH (21:00)
[2018-01-31] MEDS ORDERED: SERTRALINE HCL 100 MG TAB PO SCH (21:00)
[2018-02-01] VITALS: BP 127/60
[2018-02-01 04:00] VITALS: BP 146/67
[2018-02-01] MEDS: LEVOTHYROXINE SODIUM 50 MCG TAB PO SCH (07:28)
[2018-02-01 08:00] VITALS: BP 134/63
[2018-02-01] MEDS: LORATADINE 10 MG TAB PO SCH (08:19)
[2018-02-01] MEDS: DOCUSATE SODIUM 100 MG CAP PO SCH (08:19)
[2018-02-01] MEDS: FUROSEMIDE 20 MG TAB PO SCH (08:20)
[2018-02-01] MEDS: CLOPIDOGREL BISULFATE 75 MG TAB PO SCH (08:20)
[2018-02-01] MEDS: GABAPENTIN 300 MG CAP PO SCH (08:20)
[2018-02-01] MEDS: VALSARTAN 80 MG TAB PO SCH (08:20)
[2018-02-01] MEDS: NIFEDIPINE CR 30 MG TAB PO SCH (08:21)
[2018-02-01] MEDS: PANTOPRAZOLE SOD 40 MG TABEC PO SCH (08:21)
[2018-02-01] MEDS: ALLOPURINOL 100 MG TAB PO SCH (08:21)
[2018-02-01 08:27] VITALS: BP 134/63
[2018-02-01] MEDS ORDERED: ERGOCALCIFEROL 50,000 UNIT CAP PO SCH (09:00)
[2018-02-03] MEDS ORDERED: [UNRECOGNIZED DRUG - OTHER] PO SCH (09:00)
== END 2018-02-01 11:21 | disposition home or self-care (01) | DRG 638 ==
LOC: ER 15:21 → ERHOLD 18:22 → MED/SURG 19:23
PROVIDERS: ADMIT Internal Medicine; ATTEND Internal Medicine
DX: E11.649 Type 2 diabetes mellitus with hypoglycemia without coma (principal); Z68.41 Body mass index [BMI] 40.0-44.9, adult; E11.22 Type 2 diabetes mellitus with diabetic chronic kidney disease; I12.9 Hypertensive chronic kidney disease with stage 1 through stage 4 chronic kidney disease, or unspecified chronic kidney disease; N18.3 Chronic kidney disease, stage 3 (moderate); G47.33 Obstructive sleep apnea (adult) (pediatric); J44.9 Chronic obstructive pulmonary disease, unspecified; D64.9 Anemia, unspecified; E03.9 Hypothyroidism, unspecified; Z79.52 Long term (current) use of systemic steroids; E66.01 Morbid (severe) obesity due to excess calories; D63.1 Anemia in chronic kidney disease; Z79.84 Long term (current) use of oral hypoglycemic drugs
CPT/HCPCS: 36415; 70450; 80053; 81001; 82550; 82553; 82948; 83036; 83880; 84484; 85025; 87086; 93005; 97139; 99284; J7799

== ENCOUNTER 2018-05-16 14:39 | Inpatient (IN) | payer MEDICARE, OTHER ==
[~2018-05-16] VITALS: Ht 177.8 cm; Wt 128.8 kg
[2018-05-16 15:28] LABS: BASOPHILS # (AUTO) 0.1 (0.0-0.1); BASOPHILS % 0.5 % (0.0-1.0); EOSINOPHILS % 0.2 % (0.0-6.0); HEMATOCRIT 26.8 % (38.2-49.6); LYMPHOCYTES # (AUTO) 0.8 (1.0-3.2); LYMPHOCYTES % 7.1 % (18.0-39.1); MEAN CORPUSCULAR HEMOGLOBIN 23.3 pg (28-32); MEAN CORPUSCULAR HGB CONC 29.9 g/dL (31-35); MEAN CORPUSCULAR VOLUME 78.1 fL (81-99); MONOCYTES # (AUTO) 0.6 (0.2-0.8); MONOCYTES % 5.8 % (4.4-11.3); NEUTROPHILS # (AUTO) 9.4 (2.1-6.9); NEUTROPHILS % 85.6 % (38.7-80.0); PLATELET COUNT 286 x10e3/uL (140-360); RED BLOOD COUNT 3.43 x10e6/uL (4.3-5.7); RED CELL DISTRIBUTION WIDTH 19.2 % (11.7-14.4)
[2018-05-16] MEDS ORDERED: ASPIRIN 81 MG CHEW TAB PO ONE ×2 (15:30→17:30)
[2018-05-16] MEDS ORDERED: VANCOMYCIN 1GM/NS 250 ML 250 ML IV ONE (15:30)
[2018-05-16 15:32] LABS: INR 1.02; PROTHROMBIN TIME 14.3 seconds (11.9-14.5)
[2018-05-16 15:33] LABS: PARTIAL THROMBOPLASTIN TIME 26.4 seconds (23.8-35.5)
[2018-05-16 15:39] LABS: ALBUMIN 3.4 g/dL (3.5-5.0); ALBUMIN/GLOBULIN RATIO 1.1 (0.8-2.0); ANION GAP 18.9 mmol/L (8-16); CALCIUM 9.3 mg/dL (8.4-10.2); CREATININE, SERUM 2.11 mg/dL (0.72-1.25); POTASSIUM 4.9 mmol/L (3.5-5.1)
[2018-05-16 15:45] LABS: CREATINE KINASE MB 2.8 ng/mL (0-5.0)
[2018-05-16] MEDS ORDERED: ELIQUIS PO (15:50)
[2018-05-16] MEDS ORDERED: SOLARAZE100 GM TOP (15:50)
[2018-05-16] MEDS ORDERED: LIOTHYRONINE SO5 MCG PO (15:50)
[2018-05-16] MEDS ORDERED: FERROUS SULFAT325 MG PO (15:50)
[2018-05-16] MEDS ORDERED: NEXIUM40 MG PEG (15:50)
--- NOTE | 2018-05-16 15:55 | Diagnostic Imaging Report ---
EXAMINATION: CHEST SINGLE (PORTABLE) INDICATION: Lightheaded. Low blood sugar. COMPARISON: October 21, 2017. November 09, 2017 FINDINGS: TUBES and LINES: None. LUNGS: Lungs are well inflated. Lungs are clear. There is no evidence of pneumonia or pulmonary edema. PLEURA: No pleural effusion or pneumothorax. HEART AND MEDIASTINUM: The cardiomediastinal silhouette is unremarkable. BONES AND SOFT TISSUES: No acute osseous lesion. Soft tissues are unremarkable. UPPER ABDOMEN: No free air under the diaphragm. IMPRESSION: No acute thoracic abnormality. Signed by: Dr. Aurelio Herrera M.D. on 05/16/2018 3:52 PM
[2018-05-16] MEDS ORDERED: SODIUM CHLORIDE FLUSH 10 ML SYR INJ PRN (17:30)
[2018-05-16] MEDS ORDERED: VANCOMYCIN 1GM/NS 250 ML 250 ML IV SCH (17:30)
[2018-05-16] MEDS ORDERED: ACETAMINOPHEN 325 MG TAB PO PRN (20:15)
[2018-05-16] MEDS ORDERED: DEXTROSE 50% SYRINGE 50 ML IV PRN (20:15)
[2018-05-16 20:30] VITALS: BP 138/63
[2018-05-16] MEDS: INSULIN REGULAR, HUMAN 100 UNIT/1 ML 3ML VIAL SQ SCH (22:49)
[2018-05-16 23:58] LABS: CREATINE KINASE MB 2.5 ng/mL (0-5.0)
[2018-05-17] VITALS (11 sets, daily range): BP systolic 105–150; BP diastolic 59–70
[2018-05-17 05:36] LABS: BASOPHILS % 0.6 % (0.0-1.0); EOSINOPHILS # (AUTO) 0.2 (0.0-0.4); EOSINOPHILS % 2.8 % (0.0-6.0); HEMATOCRIT 26.3 % (38.2-49.6); HEMOGLOBIN 7.7 g/dL (14.0-18.0); LYMPHOCYTES # (AUTO) 0.8 (1.0-3.2); LYMPHOCYTES % 11.9 % (18.0-39.1); MEAN CORPUSCULAR HGB CONC 29.3 g/dL (31-35); MEAN CORPUSCULAR VOLUME 78.5 fL (81-99); MONOCYTES # (AUTO) 0.7 (0.2-0.8); MONOCYTES % 9.6 % (4.4-11.3); NEUTROPHILS # (AUTO) 5.3 (2.1-6.9); NEUTROPHILS % 74.5 % (38.7-80.0); PLATELET COUNT 252 x10e3/uL (140-360); RED BLOOD COUNT 3.35 x10e6/uL (4.3-5.7); RED CELL DISTRIBUTION WIDTH 19.5 % (11.7-14.4)
[2018-05-17 05:55] LABS: ANION GAP 15.8 mmol/L (8-16); CALCIUM 9.1 mg/dL (8.4-10.2); CREATININE, SERUM 1.88 mg/dL (0.72-1.25); MAGNESIUM 1.9 MG/DL (1.3-2.1); PHOSPHORUS 3.4 MG/DL (2.3-4.7); POTASSIUM 4.8 mmol/L (3.5-5.1)
[2018-05-17 06:07] LABS: CREATINE KINASE MB 2.5 ng/mL (0-5.0)
[2018-05-17 06:09] LABS: CLARITY,URINE CLEAR (CLEAR); COLOR,URINE YELLOW (YELLOW)
[2018-05-17 06:10] LABS: BILIRUBIN,URINE NEGATIVE (NEGATIVE); KETONES,URINE NEGATIVE (NEGATIVE); LEUKOCYTE ESTERASE ,URINE TRACE (NEGATIVE); NITRITE,URINE NEGATIVE (NEGATIVE); PROTEIN,URINE DIPSTICK NEGATIVE (NEGATIVE); URINE UROBILINOGEN 0.2 mg/dL (0.2 - 1)
[2018-05-17 06:16] LABS: EPITHELIAL CELLS,URINE FEW /LPF; WBC,URINE (MAN) 0-5 /HPF (0-5)
[2018-05-17] MEDS ORDERED: MELATONIN 3 MG TAB PO PRN (07:15)
[2018-05-17] MEDS ORDERED: ACETAMINOPHEN/CODEINE 300MG - 30MG TAB PO PRN (07:15)
[2018-05-17] MEDS ORDERED: ACETAMINOPHEN 325 MG TAB PO PRN (07:15)
--- NOTE | 2018-05-17 07:23 | Diagnostic Imaging Report ---
EXAM: XR CHEST 1 VIEW DATE: 05/17/2018 7:00 AM INDICATION: Dizziness COMPARISON: 05/16/2018 FINDINGS: Lines and Tubes: None Heart and Mediastinum: No acute cardiomediastinal findings. Lungs and Pleura: Minimal opacities in the lung bases statistically represent atelectasis, however, infectious process could have a similar appearance. Bones and Soft Tissues: No acute findings. IMPRESSION: 1. Probable basilar atelectasis. Signed by: Dr. Esa Guajardo MD on 05/17/2018 7:19 AM
[2018-05-17] MEDS: INSULIN REGULAR, HUMAN 100 UNIT/1 ML 3ML VIAL SQ SCH ×4 (07:30→21:00)
[2018-05-17 07:38] LABS: % IRON SATURATION 6 % (15-50); IRON 22 ug/dL (65-175); TOTAL IRON BINDING CAPACITY 386 ug/dL (261-478); TRANSFERRIN 276 mg/dL (174-364)
--- NOTE | 2018-05-17 07:51 | History and Physical ---
This is a 37-year-old gentleman, who comes in with dizziness. HISTORY OF PRESENTING ILLNESS: This is Mr. Willard with the history of hypertension, hyperlipidemia, and DVT, was in his usual state of health until a day prior to admission. Four days prior to admission, the patient had gone to [facility] into the emergency room. The patient had a right lower leg hit his wheelchair and caused a laceration, which got infected. While there, the patient had a DVT study done, and had some blood clots. Patient was, apparently, started on Eliquis at that time. Patient went back home in assisted an living and in the morning of admission, the patient had chills and rigors and then, came to emergency room with also, near-syncope with episode consistent with falling sensation and near-confusion and faintness. PAST MEDICAL HISTORY: History of diabetes mellitus, history of DVT, history of hyperlipidemia, history of depression, history of reflux esophagitis, history of hypertension, history of hypothyroidism, history of neuropathy, history of iron-deficiency anemia, history of allergies and gouty arthritis. MEDICINES: He takes at home are 1. Albuterol, ProAir 2 inhalations twice a day. 2. Allopurinol 100 mg once a day. 3. Cetirizine 10 mg daily. 4. Diclofenac daily. 5. Omeprazole. 6. Nexium once a day. 7. Ferrous sulfate 325 mg once a day. 8. Gabapentin 600 mg 3 times a day. 9. Levothyroxine 50. 10. Vytorin 5. 11. Melatonin 10 mg. 12. Nifedipine 60. 13. Insulin 25 units subcutaneous daily. 14. 15. Sertraline 100 mg. 16. Simvastatin 40. 17. Eliquis 5 mg twice a day. 18. Vitamin D 50,000 weekly. PAST SURGICAL HISTORY: History of cardiac stents, history of cataracts, right ankle surgery, right shoulder surgery, appendectomy, colon cancer in the past. FAMILY HISTORY: History of spina bifida in daughter. Family history of hypertension in father, mother, brother, and sisters. Diabetes mellitus in father and daughter and myocardial infarction mother and sister with cancer in sister too. REVIEW OF SYSTEMS: Negative for chest pain. No shortness of breath. Positive for nausea. No vomiting, no diarrhea, no constipation, no rectal bleeding. Positive for dizziness. No diplopia, no blurry vision. History of near-syncope and fainting. No hematochezia, no hematemesis. EXAMINATION GENERAL: Patient is alert and oriented x3. VITALS: Temperature 96.1, blood pressure is 124/69, pulse of 91, pulse oximetry of 95. HEENT: Normocephalic, atraumatic. Pupils are reactive to light and accommodation. CVS: S1 and S2. Regular rate and rhythm. ABDOMEN: Nontender, nondistended. EXTREMITIES: Right lower extremity bandaged. Positive edema and positive for erythema around the bandage. LABORATORY VALUES: Initial white count is 10,000, hemoglobin of 18, hematocrit of 26.0, neutrophil count was 85.6. Chemistries: Sodium 141, creatinine is 1.88. Estimated GFR of 35. Glucose is 168. Troponins have been negative so far. Urine clear so far. ASSESSMENT 1. Near-syncope. Patient had chills and rigors. Will go ahead and do a blood culture and urine culture. 2. Acute kidney injury and chronic kidney disease. 3. Anemia probably of blood loss and iron deficiency. Will check iron levels. Check thyroid panel for hypothyroidism. The patient has been started on insulin and vancomycin. Will continue with that. Further recommendation per clinical course. Will continue monitoring the patient. Job#: [id number] CQ
[2018-05-17] MEDS: LEVOTHYROXINE SODIUM 25 MCG TABLET PO SCH (08:00)
[2018-05-17] MEDS: LIOTHYRONINE SODIUM 5 MCG TAB PO SCH (08:00)
[2018-05-17] MEDS: NIFEDIPINE CR 30 MG TAB PO SCH (09:00)
[2018-05-17] MEDS: ALLOPURINOL 100 MG TAB PO SCH (09:00)
[2018-05-17] MEDS: FERROUS SULFATE 325 MG TAB PO SCH (09:00)
[2018-05-17] MEDS: PANTOPRAZOLE SOD 40 MG TABEC PO SCH (09:00)
[2018-05-17] MEDS ORDERED: NON-FORMULARY MEDICATION (Nifedipine (Nifedipine Er) 60 MG) PO SCH (09:00)
[2018-05-17] MEDS: GABAPENTIN 300 MG CAP PO SCH ×3 (09:00→21:35)
[2018-05-17] MEDS ORDERED: LEVOTHYROXINE SODIUM 50 MCG TAB PO SCH (09:00)
[2018-05-17] MEDS: ALBUTEROL SULFATE HFA 8GM INHALATION AEROSOL INH SCH ×2 (09:00→19:45)
[2018-05-17] MEDS ORDERED: SODIUM CHLORIDE 0.9% 250ML 250 ML ONE (15:56)
[2018-05-17] MEDS: VANCOMYCIN 1GM/NS 250 ML 250 ML IV SCH (16:00)
[2018-05-17 18:03] LABS: BASOPHILS % 0.6 % (0.0-1.0); EOSINOPHILS # (AUTO) 0.3 (0.0-0.4); EOSINOPHILS % 3.5 % (0.0-6.0); HEMATOCRIT 27.8 % (38.2-49.6); HEMOGLOBIN 8.1 g/dL (14.0-18.0); LYMPHOCYTES # (AUTO) 0.9 (1.0-3.2); LYMPHOCYTES % 12.9 % (18.0-39.1); MEAN CORPUSCULAR HEMOGLOBIN 22.9 pg (28-32); MEAN CORPUSCULAR HGB CONC 29.1 g/dL (31-35); MEAN CORPUSCULAR VOLUME 78.8 fL (81-99); MONOCYTES # (AUTO) 0.7 (0.2-0.8); MONOCYTES % 9.3 % (4.4-11.3); NEUTROPHILS # (AUTO) 5.3 (2.1-6.9); PLATELET COUNT 226 x10e3/uL (140-360); RED BLOOD COUNT 3.53 x10e6/uL (4.3-5.7); RED CELL DISTRIBUTION WIDTH 19.8 % (11.7-14.4)
[2018-05-17] MEDS ORDERED: MELATONIN 5 MG TABLET PO PRN (21:00)
[2018-05-17] MEDS: SIMVASTATIN 40 MG TAB PO SCH (21:35)
[2018-05-17] MEDS: SERTRALINE HCL 100 MG TAB PO SCH (21:35)
[2018-05-18] VITALS (7 sets, daily range): BP systolic 127–161; BP diastolic 60–74
[2018-05-18 05:23] LABS: BASOPHILS % 0.7 % (0.0-1.0); EOSINOPHILS # (AUTO) 0.3 (0.0-0.4); EOSINOPHILS % 4.9 % (0.0-6.0); HEMATOCRIT 26.6 % (38.2-49.6); LYMPHOCYTES # (AUTO) 0.9 (1.0-3.2); LYMPHOCYTES % 15.4 % (18.0-39.1); MEAN CORPUSCULAR HEMOGLOBIN 23.1 pg (28-32); MEAN CORPUSCULAR HGB CONC 28.9 g/dL (31-35); MEAN CORPUSCULAR VOLUME 79.6 fL (81-99); MONOCYTES # (AUTO) 0.7 (0.2-0.8); MONOCYTES % 11.4 % (4.4-11.3); NEUTROPHILS # (AUTO) 3.9 (2.1-6.9); NEUTROPHILS % 67.1 % (38.7-80.0); PLATELET COUNT 223 x10e3/uL (140-360); RED BLOOD COUNT 3.34 x10e6/uL (4.3-5.7); RED CELL DISTRIBUTION WIDTH 19.9 % (11.7-14.4)
[2018-05-18 05:26] LABS: HEMOGLOBIN 7.7 g/dL (14.0-18.0)
[2018-05-18 05:40] LABS: ANION GAP 15.7 mmol/L (8-16); CALCIUM 8.9 mg/dL (8.4-10.2); CREATININE, SERUM 1.62 mg/dL (0.72-1.25); POTASSIUM 4.7 mmol/L (3.5-5.1)
[2018-05-18] MEDS: LEVOTHYROXINE SODIUM 25 MCG TABLET PO SCH (06:08)
[2018-05-18] MEDS: LIOTHYRONINE SODIUM 5 MCG TAB PO SCH (06:08)
[2018-05-18] MEDS: ALBUTEROL SULFATE HFA 8GM INHALATION AEROSOL INH SCH ×2 (08:02→18:10)
[2018-05-18] MEDS: PANTOPRAZOLE SOD 40 MG TABEC PO SCH (08:20)
[2018-05-18] MEDS: INSULIN REGULAR, HUMAN 100 UNIT/1 ML 3ML VIAL SQ SCH ×4 (08:30→21:00)
[2018-05-18] MEDS: FERROUS SULFATE 325 MG TAB PO SCH (09:21)
[2018-05-18] MEDS: ALLOPURINOL 100 MG TAB PO SCH (09:21)
[2018-05-18] MEDS: NIFEDIPINE CR 30 MG TAB PO SCH (09:21)
[2018-05-18] MEDS: GABAPENTIN 300 MG CAP PO SCH ×3 (09:21→21:29)
[2018-05-18] MEDS ORDERED: SODIUM CHLORIDE 0.9% 250ML 250 ML ONE (09:37)
[2018-05-18] MEDS: IRON SUCROSE 100 MG in SODIUM CHLORIDE 0.9% 100 ML 100 ML IV SCH (10:10)
[2018-05-18] MEDS: VANCOMYCIN 1GM/NS 250 ML 250 ML IV SCH (16:30)
[2018-05-18] MEDS: SERTRALINE HCL 100 MG TAB PO SCH (21:29)
[2018-05-18] MEDS: SIMVASTATIN 40 MG TAB PO SCH (21:29)
[2018-05-19] VITALS (7 sets, daily range): BP systolic 121–163; BP diastolic 56–72
[2018-05-19 05:06] LABS: BASOPHILS # (AUTO) 0.1 (0.0-0.1); BASOPHILS % 0.9 % (0.0-1.0); EOSINOPHILS # (AUTO) 0.3 (0.0-0.4); EOSINOPHILS % 4.3 % (0.0-6.0); HEMOGLOBIN 7.2 g/dL (14.0-18.0); LYMPHOCYTES # (AUTO) 0.9 (1.0-3.2); LYMPHOCYTES % 16.2 % (18.0-39.1); MEAN CORPUSCULAR HEMOGLOBIN 22.9 pg (28-32); MEAN CORPUSCULAR HGB CONC 28.8 g/dL (31-35); MEAN CORPUSCULAR VOLUME 79.4 fL (81-99); MONOCYTES # (AUTO) 0.7 (0.2-0.8); MONOCYTES % 11.5 % (4.4-11.3); NEUTROPHILS # (AUTO) 3.8 (2.1-6.9); NEUTROPHILS % 66.4 % (38.7-80.0); PLATELET COUNT 198 x10e3/uL (140-360); RED BLOOD COUNT 3.15 x10e6/uL (4.3-5.7); RED CELL DISTRIBUTION WIDTH 19.9 % (11.7-14.4)
[2018-05-19 05:26] LABS: ANION GAP 15.3 mmol/L (8-16); CALCIUM 8.9 mg/dL (8.4-10.2); CREATININE, SERUM 1.49 mg/dL (0.72-1.25); POTASSIUM 4.3 mmol/L (3.5-5.1)
[2018-05-19] MEDS: LIOTHYRONINE SODIUM 5 MCG TAB PO SCH (06:04)
[2018-05-19] MEDS: LEVOTHYROXINE SODIUM 25 MCG TABLET PO SCH (06:04)
[2018-05-19] MEDS: ALBUTEROL SULFATE HFA 8GM INHALATION AEROSOL INH SCH ×2 (07:00→19:30)
[2018-05-19] MEDS ORDERED: FUROSEMIDE INJ 10 MG/ML 2 ML VIAL IV PRN (07:30)
[2018-05-19] MEDS: INSULIN REGULAR, HUMAN 100 UNIT/1 ML 3ML VIAL SQ SCH ×4 (07:30→21:00)
[2018-05-19] MEDS ORDERED: SODIUM CHLORIDE 0.9% 250ML 250 ML IV ONE (07:30)
[2018-05-19] MEDS: PANTOPRAZOLE SOD 40 MG TABEC PO SCH (08:35)
[2018-05-19] MEDS: IRON SUCROSE 100 MG in SODIUM CHLORIDE 0.9% 100 ML 100 ML IV SCH (08:36)
[2018-05-19] MEDS: GABAPENTIN 300 MG CAP PO SCH ×3 (08:36→20:45)
[2018-05-19] MEDS: ALLOPURINOL 100 MG TAB PO SCH (08:36)
[2018-05-19] MEDS: FERROUS SULFATE 325 MG TAB PO SCH (08:36)
[2018-05-19] MEDS: NIFEDIPINE CR 30 MG TAB PO SCH (08:39)
[2018-05-19] MEDS: VANCOMYCIN 1GM/NS 250 ML 250 ML IV SCH (16:00)
[2018-05-19] MEDS: SIMVASTATIN 40 MG TAB PO SCH (20:45)
[2018-05-19] MEDS: SERTRALINE HCL 100 MG TAB PO SCH (20:45)
[2018-05-20] VITALS (7 sets, daily range): BP systolic 125–182; BP diastolic 58–79
[2018-05-20 05:32] LABS: BASOPHILS # (AUTO) 0.1 (0.0-0.1); BASOPHILS % 0.9 % (0.0-1.0); EOSINOPHILS # (AUTO) 0.3 (0.0-0.4); EOSINOPHILS % 4.5 % (0.0-6.0); HEMATOCRIT 31.9 % (38.2-49.6); HEMOGLOBIN 8.7 g/dL (14.0-18.0); LYMPHOCYTES # (AUTO) 1.1 (1.0-3.2); LYMPHOCYTES % 17.1 % (18.0-39.1); MEAN CORPUSCULAR HEMOGLOBIN 23.4 pg (28-32); MEAN CORPUSCULAR HGB CONC 27.3 g/dL (31-35); MEAN CORPUSCULAR VOLUME 85.8 fL (81-99); MONOCYTES # (AUTO) 0.6 (0.2-0.8); MONOCYTES % 8.8 % (4.4-11.3); NEUTROPHILS # (AUTO) 4.5 (2.1-6.9); NEUTROPHILS % 67.8 % (38.7-80.0); PLATELET COUNT 214 x10e3/uL (140-360); RED BLOOD COUNT 3.72 x10e6/uL (4.3-5.7); RED CELL DISTRIBUTION WIDTH 19.9 % (11.7-14.4)
[2018-05-20 05:59] LABS: ANION GAP 16.6 mmol/L (8-16); CALCIUM 8.6 mg/dL (8.4-10.2); CREATININE, SERUM 1.34 mg/dL (0.72-1.25); POTASSIUM 4.6 mmol/L (3.5-5.1)
[2018-05-20] MEDS: LIOTHYRONINE SODIUM 5 MCG TAB PO SCH (06:50)
[2018-05-20] MEDS: LEVOTHYROXINE SODIUM 25 MCG TABLET PO SCH (06:50)
[2018-05-20 07:32] LABS: ANISOCYTOSIS SLIGHT; EOSINOPHILS % (MANUAL) 5 % (0-7); LYMPHOCYTES % (MANUAL) 16 % (19-48); MONOCYTES % (MANUAL) 6 % (3.4-9.0); NEUTROPHILS % (MANUAL) 73 % (40-74); POIKILOCYTOSIS SLIGHT; RBC MORPHOLOGY COMMENT NORMAL
[2018-05-20 07:33] LABS: PLATELET ESTIMATE ADEQUATE; PLATELET MORPHOLOGY COMMENT NORMAL
[2018-05-20] MEDS: ALBUTEROL SULFATE HFA 8GM INHALATION AEROSOL INH SCH ×2 (07:40→19:30)
[2018-05-20] MEDS: NIFEDIPINE CR 30 MG TAB PO SCH (08:22)
[2018-05-20] MEDS: ALLOPURINOL 100 MG TAB PO SCH (08:22)
[2018-05-20] MEDS: PANTOPRAZOLE SOD 40 MG TABEC PO SCH (08:22)
[2018-05-20] MEDS: GABAPENTIN 300 MG CAP PO SCH ×3 (08:22→22:14)
[2018-05-20] MEDS: FERROUS SULFATE 325 MG TAB PO SCH (08:22)
[2018-05-20] MEDS: INSULIN REGULAR, HUMAN 100 UNIT/1 ML 3ML VIAL SQ SCH ×4 (09:07→22:15)
[2018-05-20] MEDS: VANCOMYCIN 1GM/NS 250 ML 250 ML IV SCH (16:35)
[2018-05-20] MEDS ORDERED: SODIUM CHLORIDE 0.9% 250ML 250 ML ONE (16:39)
[2018-05-20] MEDS: SIMVASTATIN 40 MG TAB PO SCH (22:14)
[2018-05-20] MEDS: SERTRALINE HCL 100 MG TAB PO SCH (22:14)
[2018-05-21] VITALS (7 sets, daily range): BP systolic 117–185; BP diastolic 60–77
[2018-05-21 05:16] LABS: BASOPHILS % 0.6 % (0.0-1.0); EOSINOPHILS # (AUTO) 0.3 (0.0-0.4); EOSINOPHILS % 3.6 % (0.0-6.0); HEMATOCRIT 29.5 % (38.2-49.6); HEMOGLOBIN 8.6 g/dL (14.0-18.0); LYMPHOCYTES % 13.9 % (18.0-39.1); MEAN CORPUSCULAR HEMOGLOBIN 23.7 pg (28-32); MEAN CORPUSCULAR HGB CONC 29.2 g/dL (31-35); MEAN CORPUSCULAR VOLUME 81.3 fL (81-99); MONOCYTES # (AUTO) 0.6 (0.2-0.8); MONOCYTES % 8.8 % (4.4-11.3); NEUTROPHILS # (AUTO) 5.1 (2.1-6.9); NEUTROPHILS % 72.4 % (38.7-80.0); PLATELET COUNT 214 x10e3/uL (140-360); RED BLOOD COUNT 3.63 x10e6/uL (4.3-5.7); RED CELL DISTRIBUTION WIDTH 20.5 % (11.7-14.4)
[2018-05-21] MEDS: LIOTHYRONINE SODIUM 5 MCG TAB PO SCH (05:31)
[2018-05-21] MEDS: LEVOTHYROXINE SODIUM 25 MCG TABLET PO SCH (05:31)
[2018-05-21 05:37] LABS: ANION GAP 14.4 mmol/L (8-16); CALCIUM 9.3 mg/dL (8.4-10.2); CREATININE, SERUM 1.44 mg/dL (0.72-1.25); POTASSIUM 4.4 mmol/L (3.5-5.1)
[2018-05-21] MEDS: INSULIN REGULAR, HUMAN 100 UNIT/1 ML 3ML VIAL SQ SCH ×4 (07:30→21:10)
[2018-05-21] MEDS: ALBUTEROL SULFATE HFA 8GM INHALATION AEROSOL INH SCH ×2 (07:30→19:05)
[2018-05-21] MEDS: ALLOPURINOL 100 MG TAB PO SCH (09:07)
[2018-05-21] MEDS: GABAPENTIN 300 MG CAP PO SCH ×3 (09:07→21:09)
[2018-05-21] MEDS: FERROUS SULFATE 325 MG TAB PO SCH (09:07)
[2018-05-21] MEDS: NIFEDIPINE CR 30 MG TAB PO SCH (09:07)
[2018-05-21] MEDS: PANTOPRAZOLE SOD 40 MG TABEC PO SCH (09:07)
[2018-05-21] MEDS: VANCOMYCIN 1GM/NS 250 ML 250 ML IV SCH (18:48)
[2018-05-21] MEDS: SIMVASTATIN 40 MG TAB PO SCH (21:09)
[2018-05-21] MEDS: SERTRALINE HCL 100 MG TAB PO SCH (21:09)
[2018-05-22 00:13] VITALS: BP 170/74
[2018-05-22 04:00] VITALS: BP 151/70
[2018-05-22 05:02] LABS: BASOPHILS % 0.6 % (0.0-1.0); EOSINOPHILS # (AUTO) 0.3 (0.0-0.4); EOSINOPHILS % 4.2 % (0.0-6.0); HEMATOCRIT 28.5 % (38.2-49.6); HEMOGLOBIN 8.5 g/dL (14.0-18.0); LYMPHOCYTES % 15.1 % (18.0-39.1); MEAN CORPUSCULAR HGB CONC 29.8 g/dL (31-35); MEAN CORPUSCULAR VOLUME 80.5 fL (81-99); MONOCYTES # (AUTO) 0.7 (0.2-0.8); MONOCYTES % 10.2 % (4.4-11.3); NEUTROPHILS # (AUTO) 4.6 (2.1-6.9); NEUTROPHILS % 69.3 % (38.7-80.0); PLATELET COUNT 205 x10e3/uL (140-360); RED BLOOD COUNT 3.54 x10e6/uL (4.3-5.7)
[2018-05-22 05:35] LABS: ANION GAP 14.2 mmol/L (8-16); CALCIUM 9.3 mg/dL (8.4-10.2); CREATININE, SERUM 1.33 mg/dL (0.72-1.25); POTASSIUM 4.2 mmol/L (3.5-5.1)
[2018-05-22] MEDS: LIOTHYRONINE SODIUM 5 MCG TAB PO SCH (05:40)
[2018-05-22] MEDS: LEVOTHYROXINE SODIUM 25 MCG TABLET PO SCH (05:40)
[2018-05-22] MEDS: ALBUTEROL SULFATE HFA 8GM INHALATION AEROSOL INH SCH ×2 (07:00→19:30)
[2018-05-22 08:00] VITALS: BP 158/67
[2018-05-22 08:43] VITALS: BP 158/67
[2018-05-22] MEDS: FERROUS SULFATE 325 MG TAB PO SCH (08:56)
[2018-05-22] MEDS: PANTOPRAZOLE SOD 40 MG TABEC PO SCH (08:56)
[2018-05-22] MEDS: GABAPENTIN 300 MG CAP PO SCH ×3 (08:56→20:46)
[2018-05-22] MEDS: ALLOPURINOL 100 MG TAB PO SCH (08:57)
[2018-05-22] MEDS: NIFEDIPINE CR 30 MG TAB PO SCH (08:57)
[2018-05-22] MEDS: INSULIN REGULAR, HUMAN 100 UNIT/1 ML 3ML VIAL SQ SCH ×4 (09:04→20:46)
[2018-05-22 11:55] VITALS: BP 165/73
[2018-05-22] MEDS: VANCOMYCIN 1GM/NS 250 ML 250 ML IV SCH (16:51)
[2018-05-22 20:09] VITALS: BP 162/70
[2018-05-22] MEDS: SERTRALINE HCL 100 MG TAB PO SCH (20:46)
[2018-05-22] MEDS: SIMVASTATIN 40 MG TAB PO SCH (20:46)
[2018-05-23] VITALS: BP 123/91
[2018-05-23 04:00] VITALS: BP 123/57
[2018-05-23 05:06] LABS: BASOPHILS # (AUTO) 0.1 (0.0-0.1); BASOPHILS % 0.9 % (0.0-1.0); EOSINOPHILS # (AUTO) 0.3 (0.0-0.4); EOSINOPHILS % 4.6 % (0.0-6.0); HEMATOCRIT 32.6 % (38.2-49.6); HEMOGLOBIN 9.6 g/dL (14.0-18.0); LYMPHOCYTES % 14.3 % (18.0-39.1); MEAN CORPUSCULAR HEMOGLOBIN 24.1 pg (28-32); MEAN CORPUSCULAR HGB CONC 29.4 g/dL (31-35); MEAN CORPUSCULAR VOLUME 81.7 fL (81-99); MONOCYTES # (AUTO) 0.6 (0.2-0.8); MONOCYTES % 9.1 % (4.4-11.3); NEUTROPHILS # (AUTO) 4.7 (2.1-6.9); NEUTROPHILS % 70.7 % (38.7-80.0); PLATELET COUNT 215 x10e3/uL (140-360); RED BLOOD COUNT 3.99 x10e6/uL (4.3-5.7); RED CELL DISTRIBUTION WIDTH 21.7 % (11.7-14.4)
[2018-05-23] MEDS: LEVOTHYROXINE SODIUM 25 MCG TABLET PO SCH (05:17)
[2018-05-23] MEDS: LIOTHYRONINE SODIUM 5 MCG TAB PO SCH (05:17)
[2018-05-23 08:00] VITALS: BP_SYST 149; BP_SYST 154; BP_DIAS 70; BP_DIAS 87
[2018-05-23] MEDS: ALBUTEROL SULFATE HFA 8GM INHALATION AEROSOL INH SCH (08:09)
[2018-05-23] MEDS: PANTOPRAZOLE SOD 40 MG TABEC PO SCH (10:24)
[2018-05-23] MEDS: ALLOPURINOL 100 MG TAB PO SCH (10:25)
[2018-05-23] MEDS: FERROUS SULFATE 325 MG TAB PO SCH (10:25)
[2018-05-23] MEDS: GABAPENTIN 300 MG CAP PO SCH (10:25)
[2018-05-23] MEDS: NIFEDIPINE CR 30 MG TAB PO SCH (10:25)
[2018-05-23] MEDS: INSULIN REGULAR, HUMAN 100 UNIT/1 ML 3ML VIAL SQ SCH (10:26)
[2018-05-23 12:00] VITALS: BP 141/65
[2018-05-23 16:00] VITALS: BP 147/65
== END 2018-05-23 19:26 | disposition home or self-care (01) | DRG 812 ==
LOC: ER 14:39 → ERHOLD 17:40 → IMCU 20:30 → OBSVTOIN 05-19 13:28 → MED/SURG2 05-19 18:48
PROVIDERS: ADMIT Internal Medicine; ATTEND Internal Medicine
PROC: 30233N1 Transfusion of Nonautologous Red Blood Cells into Peripheral Vein, Percutaneous Approach (ICD-10-PCS; principal; 2018-05-19)
DX: D50.0 Iron deficiency anemia secondary to blood loss (chronic) (principal); L03.115 Cellulitis of right lower limb; N17.9 Acute kidney failure, unspecified; Z68.41 Body mass index [BMI] 40.0-44.9, adult; E66.01 Morbid (severe) obesity due to excess calories; E11.22 Type 2 diabetes mellitus with diabetic chronic kidney disease; I12.9 Hypertensive chronic kidney disease with stage 1 through stage 4 chronic kidney disease, or unspecified chronic kidney disease; N18.3 Chronic kidney disease, stage 3 (moderate); E11.40 Type 2 diabetes mellitus with diabetic neuropathy, unspecified; M10.9 Gout, unspecified; F32.9 Major depressive disorder, single episode, unspecified; C03.9 Malignant neoplasm of gum, unspecified; K21.0 Gastro-esophageal reflux disease with esophagitis; G47.33 Obstructive sleep apnea (adult) (pediatric); E03.9 Hypothyroidism, unspecified; Z85.038 Personal history of other malignant neoplasm of large intestine; Z83.3 Family history of diabetes mellitus; Z82.49 Family history of ischemic heart disease and other diseases of the circulatory system; Z86.718 Personal history of other venous thrombosis and embolism; Z79.01 Long term (current) use of anticoagulants; Z79.4 Long term (current) use of insulin
CPT/HCPCS: 36415; 71045; 80048; 80053; 80202; 81001; 82270; 82550; 82553; 82948; 83540; 83735; 83880; 84100; 84443; 84466; 84484; 85025; 85610; 85730; 86850; 86900; 86920; 87040; 87086; 93005; 94640; 96372; 99284; G0378; J1756; J1940; J3370; J7050; P9016

== ENCOUNTER → 2019-02-26 | Outpatient (CLI) | payer MEDICARE, OTHER ==
[~2019-02-26] MED LIST changes: +ASPIRIN81 MG PO; +ELIQUIS PO; +FERROUS SULFAT325 MG PO; +LASIX40 MG PO; +LIOTHYRONINE SO5 MCG PO; +NEXIUM40 MG PO; +NOVOLIN N100 UNIT/1 SC; +SOLARAZE100 GM TOP
--- NOTE | 2019-02-26 11:28 | Diagnostic Imaging Report ---
Exam: Left Knee Series. History: Knee pain Comparison: None Findings: 4 views of the left knee demonstrate no acute fracture or dislocation. There are moderate to severe tricompartmental degenerative degenerative changes with joint space narrowing, subchondral cystic change, and osteophytosis. There is a small suprapatellar knee joint effusion. Impression: No acute osseous injury. Moderate to severe tricompartmental degenerative changes. Signed by: Gio Paul MD on 02/26/2019 11:46 AM
== END ==
LOC: RAD 08:45
PROVIDERS: ATTEND Pain Medicine Pain Medicine
DX: M17.12 Unilateral primary osteoarthritis, left knee (principal)

== ENCOUNTER 2019-03-15 12:41 | Emergency (ER) | payer MEDICARE, OTHER ==
[~2019-03-15] VITALS: Ht 177.8 cm; Wt 128.8 kg
[~2019-03-15 12:41] MED LIST changes: -ASPIRIN81 MG PO; -LASIX40 MG PO; -NOVOLIN N100 UNIT/1 SC
--- OUTSIDE RECORDS SUMMARY | 2019-03-15 12:44 | XMS REPORT | Continuity of Care Document ---
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 Name Role Phone [employer] Unavailable Unavailable Problems Problem Status Onset Date Classification Date Reported Comments Source CHF Active Problem 05/24/2018 [facility] CKD Active Problem 05/24/2018 [facility] COPD exacerbation Active Problem 05/24/2018 [facility] Cellulitis Active Problem 05/24/2018 [facility] Cellulitis of leg Active Problem 05/24/2018 [facility] Chest pain Active Problem 05/24/2018 [facility] Diabetes Active Problem 05/24/2018 [facility] Gangrene Active Problem 05/24/2018 [facility] Hypoglycemia Active Problem 05/24/2018 [facility] Hypotension Active Problem 05/24/2018 [facility] Obesity Active Problem 05/24/2018 [facility] Renal insufficiency Active Problem 05/24/2018 [facility] Syncope Active Problem 05/24/2018 [facility] UTI Active Problem 05/24/2018 [facility] Weakness Active Problem 05/24/2018 [facility] Medications Medication Details Route Status Patient Instructions Ordering Provider Order Date Source Aspirin (Aspir 81) 81 Mg Tablet.dr, 81 Mg Oral Daily Active 05/16/2018 [facility] Clopidogrel Bisulfate (Clopidogrel) 75 Mg Tablet, 75 Mg Oral Daily Active 05/16/2018 [facility] Docusate Sodium 100 Mg Capsule, 100 Mg Oral Daily Active 05/16/2018 [facility] Furosemide (Lasix) 20 Mg Tablet, 60 Mg Oral Daily Active 05/16/2018 [facility] Gabapentin 300 Mg Capsule, 300 Mg Oral Daily Active 05/16/2018 [facility] Nph, Human Insulin Isophane (Novolin N) 100 Unit/1 Ml Vial, 60 Units Sub-Q Today At 9:00PM Active 05/16/2018 [facility] Valsartan (Diovan) 80 Mg Tab, 80 Mg Oral Daily Active 05/16/2018 [facility] Oseltamivir Phosphate (Tamiflu) 75 Mg Cap, 75 Mg Oral Twice A Day Active 02/01/2018 [facility] Prednisone 20 Mg Tab, 20 Mg Oral Twice A Day Active 02/01/2018 [facility] Levofloxacin (Levaquin) 500 Mg Tablet, 500 Mg Oral Daily Active 08/14/2017 [facility] Paricalcitol (Zemplar) 1 Mcg Capsule, Mon.isaias. Active 08/14/2017 [facility] Salmeterol Xinafoate/Fluticasone (Advair 500/50*) 1 Ea Aerp, 1 Inh Inhalation Every 12 Hours Active 08/14/2017 [facility] Docusate Sodium 100 Mg Capsule, 100 Mg Oral Active 01/01/2017 [facility] Gabapentin 300 Mg Capsule, 300 Mg Oral Daily Active 01/01/2017 [facility] Allopurinol 300 Mg Tablet, 300 Mg Oral Daily Active 10/18/2016 [facility] Nifedipine (Nifedipine Er) 30 Mg Tab.er.24, Active 10/18/2016 [facility] Acetaminophen With Codeine (Tylenol With Codeine #3 Tablet) 1 Each Tablet Every 6 Hours as needed for Pain Active [facility] Albuterol Sulfate (Proair Hfa Inhaler*) 8.5 Gm Inh Twice A Day Active 1 PUFF [facility] Allopurinol 100 Mg Tablet Daily Active [facility] Cetirizine Hcl 10 Mg Tablet Daily Active [facility] Diclofenac Sodium (Solaraze) 100 Gm Gel..gram. Every 6 Hours Active [facility] Eliquis 5 Twice A Day Active [facility] Esomeprazole Magnesium (Nexium) 40 Mg Capsule. Daily Active PROTONIX [facility]ERAPE[facility] FOR NEXIUM PER [facility] Ferrous Sulfate 325 Mg Tablet Daily Active [facility] Gabapentin 300 Mg Capsule Three Times A Day Active [facility] Levothyroxine Sodium 50 Mcg Tablet Daily Active [facility] Liothyronine Sodium 5 Mcg Tablet Daily Active [facility] Melatonin 3 Mg Tablet Bedtime as needed for Insomnia Active [facility] Nifedipine (Nifedipine Er) 60 Mg Tab.er.24 Daily [facility] Nph, Human Insulin Isophane (Novolin N) 100 Unit/1 Ml Vial Daily [facility] Omeprazole 40 Mg Capsule. Daily Active [facility] Sertraline Hcl 100 Mg Tablet Bedtime Active [facility] Simvastatin 40 Mg Tablet Today At 9:00PM [facility] Vit D-2 Weekly [facility] Allergies, Adverse Reactions, Alerts Substance Category Reaction Severity Reaction type Status Date Reported Comments Source penicillin Unknown Allergy to Substance Active 05/16/2018 [facility] Immunizations No Data Provided for This Section Results Order Name Results Value Reference Range Date Interpretation Comments Source Capillary blood glucose measurement by glucometer (mass/volume) Capillary blood glucose measurement by glucometer (mass/volume) 99 70 - 120 05/23/2018 [facility] Automated blood basophil count (count/volume) Automated blood basophil count (count/volume) 0.1 0.0 - 0.1 05/23/2018 [facility] Automated blood basophil count as percentage of total leukocytes Automated blood basophil count as percentage of total leukocytes 0.9 0.0 - 1.0 05/23/2018 [facility] Automated blood eosinophil count Automated blood eosinophil count 0.3 0.0 - 0.4 05/23/2018 [facility] Automated blood eosinophil count as percentage of total leukocytes Automated blood eosinophil count as percentage of total leukocytes 4.6 0.0 - 6.0 05/23/2018 [facility] Automated blood hematocrit (volume fraction) Automated blood hematocrit (volume fraction) 32.6 38.2 - 49.6 05/23/2018 [facility] Automated blood lymphocyte count as percentage ot total leukocytes Automated blood lymphocyte count as percentage ot total leukocytes 14.3 18.0 - 39.1 05/23/2018 [facility] Automated blood monocyte count as percentage of total leukocytes Automated blood monocyte count as percentage of total leukocytes 9.1 4.4 - 11.3 05/23/2018 [facility] Automated blood neutrophil count Automated blood neutrophil count 4.7 2.1 - 6.9 05/23/2018 [facility] Automated blood platelet count (count/volume) Automated blood platelet count (count/volume) 215 140 - 360 05/23/2018 [facility] Automated blood segmented neutrophil count as percentage of total leukocytes Automated blood segmented neutrophil count as percentage of total leukocytes 70.7 38.7 - 80.0 05/23/2018 [facility] Automated erythrocyte mean corpuscular hemoglobin (mass per erythrocyte) Automated erythrocyte mean corpuscular hemoglobin (mass per erythrocyte) 24.1 28 - 32 05/23/2018 [facility] Automated erythrocyte mean corpuscular hemoglobin concentration measurement (mass/volume) Automated erythrocyte mean corpuscular hemoglobin concentration measurement (mass/volume) 29.4 31 - 35 05/23/2018 [facility] Automated erythrocyte mean corpuscular volume Automated erythrocyte mean corpuscular volume 81.7 81 - 99 05/23/2018 [facility] Blood erythrocytes automated count (number/volume) Blood erythrocytes automated count (number/volume) 3.99 4.3 - 5.7 05/23/2018 [facility] Blood hemoglobin measurement (moles/volume) Blood hemoglobin measurement (moles/volume) 9.6 14.0 - 18.0 05/23/2018 [facility] Blood leukocytes automated count (number/volume) Blood leukocytes automated count (number/volume) 6.69 4.8 - 10.8 05/23/2018 [facility] Blood lymphocytes count (number/volume) Blood lymphocytes count (number/volume) 1.0 1.0 - 3.2 05/23/2018 [facility] Blood monocytes automated count (number/volume) Blood monocytes automated count (number/volume) 0.6 0.2 - 0.8 05/23/2018 [facility] Red Cell Distribution Width 21.7 11.7 - 14.4 05/23/2018 [facility] IM GRANULOCYTES % 0.4 0.0 - 1.0 05/23/2018 [facility] Absolute Immature Granulocyte (auto 0.03 0 - 0.1 05/23/2018 [facility] Estimated glomerular filtration rate (GFR) determination Estimated glomerular filtration rate (GFR) determination 52 60 05/22/2018 [facility] Glucose measurement Glucose measurement 210 74 - 118 05/22/2018 [facility] Plasma globulin measurement (mass/volume) Plasma globulin measurement (mass/volume) 2.9 2.3 - 3.5 05/22/2018 [facility] Serum or plasma alanine aminotransferase measurement (enzymatic activity/volume) Serum or plasma alanine aminotransferase measurement (enzymatic activity/volume) 14 0 - 55 05/22/2018 [facility] Serum or plasma albumin measurement (mass/volume) Serum or plasma albumin measurement (mass/volume) 3.0 3.5 - 5.0 05/22/2018 [facility] Serum or plasma albumin/globulin mass ratio Serum or plasma albumin/globulin mass ratio 1.0 0.8 - 2.0 05/22/2018 [facility] Serum or plasma alkaline phosphatase measurement (enzymatic activity/volume) Serum or plasma alkaline phosphatase measurement (enzymatic activity/volume) 141 40 - 150 05/22/2018 [facility] Serum or plasma anion gap Serum or plasma anion gap 14.2 8 - 16 05/22/2018 [facility] Serum or plasma calcium measurement (mass/volume) Serum or plasma calcium measurement (mass/volume) 9.3 8.4 - 10.2 05/22/2018 [facility] Serum or plasma carbon dioxide, total measurement (moles/volume) Serum or plasma carbon dioxide, total measurement (moles/volume) 24 22 - 29 05/22/2018 [facility] Serum or plasma chloride measurement (moles/volume) Serum or plasma chloride measurement (moles/volume) 106 98 - 107 05/22/2018 [facility] Serum or plasma creatinine measurement (mass/volume) Serum or plasma creatinine measurement (mass/volume) 1.33 0.72 - 1.25 05/22/2018 [facility] Serum or plasma potassium measurement (moles/volume) Serum or plasma potassium measurement (moles/volume) 4.2 3.5 - 5.1 05/22/2018 [facility] Serum or plasma protein measurement (mass/volume) Serum or plasma protein measurement (mass/volume) 5.9 6.5 - 8.1 05/22/2018 [facility] Serum or plasma sodium measurement (moles/volume) Serum or plasma sodium measurement (moles/volume) 140 136 - 145 05/22/2018 [facility] Serum or plasma total bilirubin measurement (mass/volume) Serum or plasma total bilirubin measurement (mass/volume) 0.3 0.2 - 1.2 05/22/2018 [facility] Serum or plasma urea nitrogen measurement (mass/volume) Serum or plasma urea nitrogen measurement (mass/volume) 14 7 - 26 05/22/2018 [facility] Serum or plasma urea nitrogen/creatinine mass ratio Serum or plasma urea nitrogen/creatinine mass ratio 11 6 - 25 05/22/2018 [facility] Aspartate Amino Transf (AST/SGOT) 16 5 - 34 05/22/2018 [facility] Stool gastrointestinal hemoglobin detection Stool gastrointestinal hemoglobin detection NEGATIVE NEGATIVE 05/21/2018 [facility] Serum or plasma trough vancomycin level at trough (mass/volume) Serum or plasma trough vancomycin level at trough (mass/volume) 10.9 5.0 - 10.0 05/21/2018 [facility] Blood anisocytosis detection by light microscopy Blood anisocytosis detection by light microscopy SLIGHT 05/20/2018 [facility] Blood platelets count by estimate (number/volume) Blood platelets count by estimate (number/volume) ADEQUATE 05/20/2018 [facility] Blood poikilocytosis detection by light microscopy Blood poikilocytosis detection by light microscopy SLIGHT 05/20/2018 [facility] Manual blood eosinophil count as percentage of total leukocytes Manual blood eosinophil count as percentage of total leukocytes 5 0 - 7 05/20/2018 [facility] Manual blood lymphocytes/100 leukocytes Manual blood lymphocytes/100 leukocytes 16 19 - 48 05/20/2018 [facility] Manual blood monocytes/100 leukocytes Manual blood monocytes/100 leukocytes 6 3.4 - 9.0 05/20/2018 [facility] Manual blood neutrophils/100 leukocytes Manual blood neutrophils/100 leukocytes 73 40 - 74 05/20/2018 [facility] Platelet morphology Platelet morphology NORMAL 05/20/2018 [facility] RBC morphology RBC morphology NORMAL 05/20/2018 [facility] Differential Total Cells Counted 100 05/20/2018 [facility] Blood culture Blood culture NO GROWTH AFTER 5 DAYS, FINAL REPORT 05/17/2018 [facility] Serum or plasma iron binding capacity measurement (mass/volume) Serum or plasma iron binding capacity measurement (mass/volume) 386 261 - 478 05/17/2018 [facility] Serum or plasma iron measurement (mass/volume) Serum or plasma iron measurement (mass/volume) 22 65 - 175 05/17/2018 [facility] Serum or plasma iron saturation measurement (mass fraction) Serum or plasma iron saturation measurement (mass fraction) 6 15 - 50 05/17/2018 [facility] Serum or plasma thyrotropin measurement by detection limit <=0.005 miu/l (units/volume) Serum or plasma thyrotropin measurement by detection limit <=0.005 miu/l (units/volume) 1.233 0.350 - 4.940 05/17/2018 [facility] Serum or plasma transferrin measurement (mass/volume) Serum or plasma transferrin measurement (mass/volume) 276 174 - 364 05/17/2018 [facility] Automated urine sediment leukocyte count by microscopy (number/high power field) Automated urine sediment leukocyte count by microscopy (number/high power field) <5 0 - 5 05/17/2018 [facility] Bacteria detection in urine sediment by light microscopy Bacteria detection in urine sediment by light microscopy NONE NONE 05/17/2018 [facility] Epithelial cells detection in urine sediment by light microscopy Epithelial cells detection in urine sediment by light microscopy FEW NONE 05/17/2018 [facility] Erythrocytes detection in urine sediment by light microscopy Erythrocytes detection in urine sediment by light microscopy NONE 0 - 5 05/17/2018 [facility] Specific gravity of Urine by Test strip Specific gravity of Urine by Test strip 1.005 1.010 - 1.025 05/17/2018 [facility] Urine clarity Urine clarity CLEAR CLEAR 05/17/2018 [facility] Urine color determination Urine color determination YELLOW YELLOW 05/17/2018 [facility] Urine erythrocytes detection Urine erythrocytes detection NEGATIVE NEGATIVE 05/17/2018 [facility] Urine glucose detection Urine glucose detection NEGATIVE NEGATIVE 05/17/2018 [facility] Urine ketones detection by automated test strip Urine ketones detection by automated test strip NEGATIVE NEGATIVE 05/17/2018 [facility] Urine leukocyte esterase detection by dipstick Urine leukocyte esterase detection by dipstick TRACE NEGATIVE 05/17/2018 [facility] Urine nitrite detection Urine nitrite detection NEGATIVE NEGATIVE 05/17/2018 [facility] Urine pH measurement by automated test strip Urine pH measurement by automated test strip 7 5 - 7 05/17/2018 [facility] Urine protein measurement by test strip (mass/volume) Urine protein measurement by test strip (mass/volume) NEGATIVE NEGATIVE 05/17/2018 [facility] Urine total bilirubin measurement (mass/volume) Urine total bilirubin measurement (mass/volume) NEGATIVE NEGATIVE 05/17/2018 [facility] Urine urobilinogen measurement by test strip (mass/volume) Urine urobilinogen measurement by test strip (mass/volume) 0.2 0.2 - 1 05/17/2018 [facility] Phosphorus measurement Phosphorus measurement 3.4 2.3 - 4.7 05/17/2018 [facility] Serum or plasma creatine kinase MB measurement (mass/volume) Serum or plasma creatine kinase MB measurement (mass/volume) 2.50 0 - 5.0 05/17/2018 [facility] Serum or plasma creatine kinase measurement (enzymatic activity/volume) Serum or plasma creatine kinase measurement (enzymatic activity/volume) 147 30 - 200 05/17/2018 [facility] Serum or plasma magnesium measurement (mass/volume) Serum or plasma magnesium measurement (mass/volume) 1.9 1.3 - 2.1 05/17/2018 [facility] Troponin I measurement by highly sensitive enzyme immunoassay Troponin I measurement by highly sensitive enzyme immunoassay 0.062 0 - 0.300 05/17/2018 [facility] Activated partial thromboplastin time (aPTT) in platelet poor plasma bycoagulation assay Activated partial thromboplastin time (aPTT) in platelet poor plasma bycoagulation assay 26.4 23.8 - 35.5 05/16/2018 [facility] INR in Platelet poor plasma by Coagulation assay INR in Platelet poor plasma by Coagulation assay 1.02 05/16/2018 [facility] Prothrombin time (PT) in platelet poor plasma by coagulation assay Prothrombin time (PT) in platelet poor plasma by coagulation assay 14.3 11.9 - 14.5 05/16/2018 [facility] B-Type Natriuretic Peptide 51.7 0 - 100 05/16/2018 [facility] Hemoglobin A1c Percent 7.6 4.0 - 7.0 01/31/2018 [facility] Hyaline casts detection in urine sediment by light microscopy Hyaline casts detection in urine sediment by light microscopy <15 0 - 1 01/30/2018 [facility] Random serum or plasma vancomycin measurement (mass/volume) Random serum or plasma vancomycin measurement (mass/volume) 4.5 11/17/2017 [facility] Serum or plasma cholesterol in HDL measurement (mass/volume) Serum or plasma cholesterol in HDL measurement (mass/volume) 49 40 - 60 11/10/2017 [facility] Serum or plasma cholesterol in LDL measurement (mass/volume) Serum or plasma cholesterol in LDL measurement (mass/volume) 67 60 - 130 11/10/2017 [facility] Serum or plasma cholesterol measurement (mass/volume) Serum or plasma cholesterol measurement (mass/volume) 139 0 - 199 11/10/2017 [facility] Serum or plasma total cholesterol/cholesterol in HDL mass ratio Serum or plasma total cholesterol/cholesterol in HDL mass ratio 2.8 3.9 - 4.7 11/10/2017 [facility] Serum or plasma triglyceride measurement (mass/volume) Serum or plasma triglyceride measurement (mass/volume) 115 0 - 149 11/10/2017 [facility] Mucus detection in urine sediment by light microscopy Mucus detection in urine sediment by light microscopy FEW RARE 11/09/2017 [facility] Serum or plasma lipase measurement (enzymatic activity/volume) Serum or plasma lipase measurement (enzymatic activity/volume) 41 8 - 78 11/09/2017 [facility] Arterial blood base excess by calculation Arterial blood base excess by calculation 2.0 -2 - 3 - 2 08/14/2017 [facility] Arterial blood bicarbonate measurement (moles/volume) Arterial blood bicarbonate measurement (moles/volume) 27 23 - 28 08/14/2017 [facility] Arterial blood oxygen saturation measurement Arterial blood oxygen saturation measurement 85.0 95 - 98 08/14/2017 [facility] Arterial blood pH measurement Arterial blood pH measurement 7.39 7.31 - 7.41 08/14/2017 [facility] Arterial Blood Partial Pressure CO2 45 41 - 51 08/14/2017 [facility] Arterial Blood Partial Pressure O2 50 80 - 105 08/14/2017 [facility] Influenza virus A and B antigen identification by immunofluorescence Influenza virus A and B antigen identification by immunofluorescence POSITIVE FLU A NEGATIVE 08/14/2017 [facility] Fibrin D-dimer DDU measurement in platelet poor plasma (mass/volume) Fibrin D-dimer DDU measurement in platelet poor plasma (mass/volume) 1.23 0.00 - 0.45 08/14/2017 [facility] Pathology Reports No Data Provided for This Section Diagnostic Reports No Data Provided for This Section Consultation Notes No Data Provided for This Section Discharge Summaries No Data Provided for This Section History and Physicals No Data Provided for This Section Vital Signs No Data Provided for This Section Encounters Location Location Details Encounter Type Encounter Number Reason For Visit Attending Provider ADM Date DC Date Status Source Discharged Inpatient [id number] ELVER HAGER MD 08/16/2017 08/20/2017 [facility] [id number] NASH AL MD 09/28/2017 [facility] Discharged Inpatient [id number] ELVER HAGER MD 10/19/2017 10/23/2017 [facility] Discharged Inpatient [id number] ELVER HAGER MD 11/09/2017 11/20/2017 [facility] Discharged Inpatient [id number] ELVER HAGER MD 01/30/2018 02/01/2018 [facility] Discharged Inpatient [id number] ELVER HAGER MD 05/19/2018 05/23/2018 [facility] Procedures Procedure Code Date Perfomer Comments Source Computed tomography of brain without radiopaque contrast [id number] 01/30/2018 KEIRA [facility] Magnetic resonance imaging of brain without contrast [id number] 11/14/2017 BARBRA [facility] Computed tomography of brain without radiopaque contrast [id number] 11/09/2017 [facility] [facility] chest, two views [id number] 10/21/2017 [facility] MRI jnt of lwr extre w/o dye [id number] [facility], [facility] [id number] 08/19/2017 [facility] Assessment and Plan No Data Provided for This Section Plan of Care Plan of Care Date Source Discharge Date 05/23/18 7:26pm Disposition HOME, SELF-CARE Instructions/Education Provided Cellulitis Prescriptions See Medication Section Referrals ELVER HAGER MD (Internal Medicine) Order Date: 1-2 Weeks Entered Date: 05/23/2018 6:17pm Address: [address] [place] [id number] 05/23/2018 [facility] Social History Social History Date Source Social History Problem Response Recorded Date/Time Onset Date Status Hx Psychiatric Problems No 01/30/2018 8:00pm Not Applicable Not Applicable Hx Eating Disorder No 01/30/2018 8:00pm Not Applicable Not Applicable Hx Substance Use Disorder No 01/30/2018 8:00pm Not Applicable Not Applicable Hx Depression Yes 01/30/2018 8:00pm Not Applicable Not Applicable Hx Alcohol Use No 01/30/2018 8:00pm Not Applicable Not Applicable Hx Substance Use Treatment No 01/30/2018 8:00pm Not Applicable Not Applicable Hx Physical Abuse No 01/30/2018 8:00pm Not Applicable Not Applicable Smoking Status Start Date Stop Date Never Smoker 05/23/2018 [facility] Family History Value Date Source Relationship Condition Age at Onset Recorded Date/Time 09 Brother Family history of hypertension Not Recorded 10/18/2016 8:20pm 18 Daughter Family history of diabetes mellitus Not Recorded 10/18/2016 8:18pm 18 Daughter Family history of hypertension Not Recorded 10/18/2016 8:20pm 33 Father Family history of diabetes mellitus Not Recorded 10/18/2016 8:18pm 33 Father Family history of hypertension Not Recorded 10/18/2016 8:20pm 32 Mother Family history of acute myocardial infarction Not Recorded 10/18/2016 8:19pm 32 Mother Family history of hypertension Not Recorded 10/18/2016 8:20pm 09 Sister Family history of acute myocardial infarction Not Recorded 10/18/2016 8:19pm 09 Sister Family history of hypertension Not Recorded 10/18/2016 8:20pm 05/23/2018 [facility] Advance Directives Order Name Results Value Date Source Advance Directives Advance Directives Directive Response Recorded Date/Time Does the patient have an advance directive? No 05/17/18 1:01am If yes, is advance directive on file with [facility]? No 05/17/18 1:01am If not on file with [facility] will patient provide a copy? Yes 05/17/18 1:01am Do you have a Directive to Physician? No 05/16/18 3:50pm Do you have a Medical Power of Laser Operator? No 05/16/18 3:50pm Do you have an out of hospital Do Not Resuscitate Order? No 05/16/18 3:50pm Do you have any special needs we should be aware of? No 05/16/18 3:50pm Do you have a support person here with you today? Yes 05/16/18 3:50pm Did patient receive Notice of Privacy Practices? Yes 05/16/18 3:50pm Did patient receive patient rights and responsibilities? Yes 05/16/18 3:50pm 05/23/2018 [facility] Functional Status No Data Provided for This Section
--- OUTSIDE RECORDS SUMMARY | 2019-03-15 12:44 | XMS REPORT | Clinical Summary ---
Author Author [facility] Organization [facility] Address Unknown Phone Unavailable Care Team Providers Care Physical Sciences Instructor Name Role Phone Jose Hdz DO PCP Allergies Comments Active Allergy Reactions Severity Noted Date Penicillins Anaphylaxis High 03/15/2018 Medications End Date Status Medication Sig Dispensed Refills Start Date Active simvastatin (ZOCOR) 40 MG Take 40 mg by 0 tablet mouth nightly. Active allopurinol (ZYLOPRIM) Take 150 mg 0 300 MG tablet by mouth daily. Active NIFEdipine XL (PROCARDIA Take 60 mg by 0 XL) 60 MG 24 hr tablet mouth daily. Active levothyroxine (SYNTHROID, Take 25 mcg 0 LEVOXYL) 25 mcg tablet by mouth every morning. Active sertraline (ZOLOFT) 100 Take 100 mg 0 MG tablet by mouth daily. Active cetirizine (ZyrTEC) 10 MG Take 10 mg by 0 tablet mouth daily. Active liothyronine (CYTOMEL) 5 Take 5 mcg by 0 MCG tablet mouth daily. PATIENT WAS NOT SURE IF HE IS TAKING THIS MED. IT WAS ON HIS MED LIST THAT HE HAD IN HIS WALLET Active acetaminophen-codeine Take 1 tablet 0 (TYLENOL WITH CODEINE #3) by mouth 300-30 mg per tablet every 6 (six) hours as needed for moderate pain. Active gabapentin (NEURONTIN) Take 300 mg 0 300 mg capsule by mouth 3 (three) times a day. Active diclofenac (VOLTAREN) 1 % Apply 1 0 gel application topically every 6 (six) hours as needed. Active melatonin 10 mg capsule Take 1 0 capsule by mouth nightly. Active albuterol (PROAIR HFA) 90 Inhale 1 puff 0 mcg/actuation inhaler every 6 (six) hours as needed. Active fluticasone-salmeterol Inhale 1 puff 0 (ADVAIR) 500-50 mcg/dose 2 (two) times DISKUS a day as needed. Active insulin NPH human Inject 25 0 isophane (NOVOLIN N NPH Units under U-100 INSULIN SUBQ) the skin every morning. Active insulin NPH human Inject 30 0 isophane (NOVOLIN N NPH Units under U-100 INSULIN SUBQ) the skin nightly. Active esomeprazole (NexIUM) 40 Take 40 mg by 0 MG capsule mouth daily as needed. 05/11/2018 Discontinued ergocalciferol (VITAMIN Take 50,000 0 D2) 50,000 unit capsule Units by mouth once a week. TAKES ON Sunday05/11/2018 Discontinued valsartan (DIOVAN) 80 MG Take 80 mg by 0 tablet mouth daily. 05/11/2018 Discontinued furosemide (LASIX) 20 mg Take 60 mg by 0 tablet mouth daily. 05/15/2018 Discontinued pantoprazole (PROTONIX) Take 40 mg by 0 40 MG EC tablet mouth daily. 05/15/2018 Discontinued clopidogrel (PLAVIX) 75 Take 75 mg by 0 mg tablet mouth daily. 05/11/2018 Discontinued gabapentin (NEURONTIN) Take 600 mg 0 300 mg capsule by mouth nightly. 05/11/2018 Discontinued docusate sodium (COLACE) Take 100 mg 0 100 MG capsule by mouth every morning. 05/11/2018 Discontinued magnesium oxide 250 mg Take 250 mg 0 tablet by mouth nightly. 05/15/2018 Discontinued aspirin (ECOTRIN) 81 MG Take 81 mg by 0 enteric coated tablet mouth nightly. 05/15/2018 Discontinued apixaban (ELIQUIS) 5 mg Take 2 120 tablet 0 tablet tablets (10 8 mg total) by mouth 2 (two) times a day for 30 days. 06/14/2018 furosemide (LASIX) 20 mg Take 1 tablet 90 tablet 0 tablet (20 mg total) 8 by mouth 3 (three) times a day for 30 days. 06/14/2018 ferrous sulfate 325 (65 Take 1 tablet 60 tablet 0 FE) MG tablet (325 mg 8 total) by mouth 2 (two) times a day with meals for 30 days. 05/20/2018 apixaban (ELIQUIS) 5 mg Take 2 20 tablet 0 tablet tablets (10 8 mg total) by mouth 2 (two) times a day for 5 days. 06/19/2018 apixaban (ELIQUIS) 5 mg Take 1 tablet 60 tablet 0 tablet (5 mg total) 8 by mouth 2 (two) times a day for 30 days. Active Problems Problem Noted Date Hyperlipidemia 05/13/2018 COPD (chronic obstructive pulmonary disease) 05/12/2018 Neuropathy 05/12/2018 Deep vein thrombosis (DVT) of popliteal vein of left lower extremity 05/12/2018 Disease of thyroid gland 05/12/2018 Sleep apnea 05/12/2018 Postural dizziness with presyncope 05/11/2018 Anemia 05/11/2018 Coronary artery disease 05/11/2018 Diabetes mellitus 05/11/2018 Acute kidney injury 05/11/2018 Hypertension 05/11/2018 Encounters Care Team Description Date Type Specialty Sergey Ventura MD Mayen Nunez, MD John Kilpatrick, Osvaldo Peña, PASabrina Postural dizziness with presyncope (Primary Dx); Symptomatic anemia; Acute renal failure, unspecified acute renal failure type; Deep vein thrombosis (DVT) of popliteal vein of left lower extremity, unspecified chronicity 05/11/2018 Hospital General Internal Medicine - Encounter 05/15/2018 Charo Harper DO Closed head injury, initial encounter (Primary Dx); Scalp laceration, initial encounter 03/15/2018 Emergency Emergency Medicine after 03/14/2018 Family History Medical History Relation Name Comments Diabetes Father Heart disease Father Arthritis Mother Diabetes Mother Heart attack Mother Heart disease Mother Arthritis Sister Hypertension Sister Relation Name Status Comments Father Mother Sister Social History Date Tobacco Use Types Packs/Day Years Used Quit: 1995 Former Smoker Cigarettes Smokeless Tobacco: Never Used Alcohol Use Drinks/Week oz/Week Comments No Sex Assigned at Date Recorded Not on file Industry Job Start Date Occupation Not on file Not on file Not on file Travel End Travel History Travel Start No recent travel history available. Last Filed Vital Signs Time Taken Vital Sign Reading 05/15/2018 6:58 AM CDT Blood Pressure 134/62 05/15/2018 7:37 AM CDT Pulse 75 05/15/2018 6:58 AM CDT Temperature 36.2 C (97.1 F) 05/15/2018 7:37 AM CDT Respiratory Rate 18 05/15/2018 7:30 AM CDT Oxygen Saturation 97% - Inhaled Oxygen - Concentration 05/11/2018 2:00 PM CDT Weight 132 kg (292 lb) 05/11/2018 2:00 PM CDT Height 177.8 cm (5' 10") 05/11/2018 2:00 PM CDT Body Mass Index 41.9 Plan of Treatment Health Maintenance Due Date Last Done Comments DIABETIC RETINAL EYE EXAM 1938 DIABETIC FOOT EXAM 1948 URINE MICROALBUMIN 1948 SHINGLES VACCINES (#1) 1988 65+ PNEUMOCOCCAL VACCINE 2003 (1 of 2 - PCV13) INFLUENZA VACCINE 03/20/2019 Procedures Comments Procedure Name Priority Date/Time Associated Diagnosis XR CHEST 1 VW PORTABLE Routine 05/15/2018 9:14 AM CDT B NATRIURETIC PEPTIDE Routine 05/15/2018 7:54 AM CDT ESTIMATED GFR Routine 05/15/2018 7:54 AM CDT BASIC METABOLIC PANEL Routine 05/15/2018 7:54 AM CDT SMEAR REVIEW Routine 05/15/2018 7:54 AM CDT HC COMPLETE BLD COUNT Routine 05/15/2018 W/AUTO DIFF 7:54 AM CDT POC GLUCOSE Routine 05/15/2018 5:50 AM CDT POC GLUCOSE Routine 05/14/2018 9:02 PM CDT POC GLUCOSE Routine 05/14/2018 3:56 PM CDT ESTIMATED GFR Routine 05/14/2018 2:25 PM CDT B NATRIURETIC PEPTIDE Routine 05/14/2018 2:25 PM CDT BASIC METABOLIC PANEL Routine 05/14/2018 2:25 PM CDT ECHOCARDIOGRAM 2D Routine 05/14/2018 COMPLETE W MMODE SPECTRAL 1:50 PM CDT COLOR DOPPLER (04532) POC GLUCOSE Routine 05/14/2018 11:37 AM CDT ECG 12-LEAD Routine 05/14/2018 11:13 AM CDT POC GLUCOSE Routine 05/14/2018 5:20 AM CDT POC GLUCOSE Routine 05/13/2018 8:27 PM CDT POC GLUCOSE Routine 05/13/2018 4:27 PM CDT POC GLUCOSE Routine 05/13/2018 11:13 AM CDT D-DIMER STAT 05/13/2018 10:33 AM CDT SMEAR REVIEW STAT 05/13/2018 9:24 AM CDT ESTIMATED GFR STAT 05/13/2018 9:24 AM CDT BASIC METABOLIC PANEL STAT 05/13/2018 9:24 AM CDT HC COMPLETE BLD COUNT STAT 05/13/2018 W/AUTO DIFF 9:24 AM CDT POC GLUCOSE Routine 05/13/2018 5:52 AM CDT POC GLUCOSE Routine 05/12/2018 8:52 PM CDT POC GLUCOSE Routine 05/12/2018 4:16 PM CDT POC GLUCOSE Routine 05/12/2018 11:05 AM CDT POC GLUCOSE Routine 05/12/2018 6:08 AM CDT SMEAR REVIEW Routine 05/12/2018 5:00 AM CDT ESTIMATED GFR Routine 05/12/2018 5:00 AM CDT BASIC METABOLIC PANEL Routine 05/12/2018 5:00 AM CDT HC COMPLETE BLD COUNT Routine 05/12/2018 W/AUTO DIFF 5:00 AM CDT US DUPLEX VENOUS LOWER STAT 05/12/2018 EXTREMITY BILATERAL 12:05 AM CDT POC GLUCOSE Routine 05/11/2018 7:42 PM CDT POC GLUCOSE Routine 05/11/2018 5:11 PM CDT TYPE AND SCREEN Routine 05/11/2018 3:15 PM CDT XR TIBIA FIBULA 2 VW STAT 05/11/2018 RIGHT 2:47 PM CDT MANUAL DIFFERENTIAL STAT 05/11/2018 2:15 PM CDT ESTIMATED GFR STAT 05/11/2018 2:15 PM CDT BASIC METABOLIC PANEL STAT 05/11/2018 2:15 PM CDT PARTIAL THROMBOPLASTIN STAT 05/11/2018 TIME (PTT) 2:15 PM CDT PROTHROMBIN TIME WITH INR STAT 05/11/2018 2:15 PM CDT CBC WITH PLATELET AND STAT 05/11/2018 DIFFERENTIAL 2:15 PM CDT NE LAYR CLOS WND Routine 05/11/2018 TRUNK,ARM,LEG 12.6-20 CM 2:01 PM CDT ECG 12-LEAD Routine 03/15/2018 9:[address] HEAD WO CONTRAST STAT 03/15/2018 8:40 PM CDT ECG ED PRELIMINARY Routine 03/15/2018 INTERPRETATION 8:18 PM CDT NE RESUPERF WND BODY Routine 03/15/2018 <2.5CM 8:18 PM CDT after 03/14/2018 Results * XR Chest 1 Vw Portable (05/15/2018 9:14 AM CDT) Specimen Narrative Performed At EXAMINATION:XR CHEST 1 VW PORTABLE [facility] CLINICAL HISTORY:ICU ptunstable or clinical worsening COMPARISON:January 10, 2007 FINDINGS: The heart size is mildly enlarged accentuated by the AP technique. There are low lung volumes with mild basilar atelectasis. There are no additional findings of significance noted. IMPRESSION: Cardiomegaly with mild basilar atelectasis [id number] Procedure Note Interface, Radiology Results Incoming - 05/15/2018 9:40 AM CDT EXAMINATION: XR CHEST 1 VW PORTABLE CLINICAL HISTORY: ICU pt unstable or clinical worsening COMPARISON: January 10, 2007 FINDINGS: The heart size is mildly enlarged accentuated by the AP technique. There are low lung volumes with mild basilar atelectasis. There are no additional findings of significance noted. IMPRESSION: Cardiomegaly with mild basilar atelectasis [id number] Performing Organization Address City/State/Zipcode Phone Number [facility] [address] [place] [address] * Smear review (05/15/2018 7:54 AM CDT) Only the most recent of 3 results within the time period is included. Platelet slide Saray adequate [facility] review DEPARTMENT OF PATHOLOGY AND GENOMIC MEDICINE Anisocytosis ModerateComment: Moderate [facility] Hypochromia DEPARTMENT OF PATHOLOGY AND GENOMIC MEDICINE Tear drop cells Occasional [facility] DEPARTMENT OF PATHOLOGY AND GENOMIC MEDICINE Schistocytes Rare [facility] DEPARTMENT OF PATHOLOGY AND GENOMIC MEDICINE Ovalocytes Occasional [facility] DEPARTMENT OF PATHOLOGY AND GENOMIC MEDICINE Specimen Performing Organization Address [facility] Phone Number [facility] DE[place]MENT [place] [id number] [place] [address] [place] [address] PATHOLOGY AND GENOMIC MEDICINE * Estimated GFR (05/15/2018 7:54 AM CDT) Only the most recent of 5 results within the time period is included. Estimated GFR 47 (A) mL/min/1.73 m2 [facility] Comment: DEPARTMENT OF [employer] PATHOLOGY AND rpretation GENOMIC G1 MEDICINE >=90 Normal or high G2 60-89Mildly decreased [id number] Mildly to moderately decreased [id number] Moderately to severely decreased G4 15-29Severely decreased G5 <15Kidney failure The eGFR was calculated using the Chronic Kidney Disease Epidemiology Collaboration (CKD-EPI) equation. Interpretation is based on recommendations of the National Kidney Foundation-Kidney Disease Outcomes Quality Initiative (NKF-KDOQI) published in 2014. Specimen Plasma specimen Performing Organization Address City/[facility]/Zipcode Phone Number [facility] [address] [place] [address] PATHOLOGY [facility] MEDICINE * CBC with platelet and differential (05/15/2018 7:54 AM CDT) Only the most recent of 4 results within the time period is included. [facility] WBC 7.71 4.50 - 11.00 k/uL [facility] DEPARTMENT OF PATHOLOGY AND GENOMIC MEDICINE RBC 3.67 (L) 4.40 - 6.00 m/uL [facility] DEPARTMENT OF PATHOLOGY AND GENOMIC MEDICINE HGB 8.2 (L) 14.0 - 18.0 g/dL [facility] DEPARTMENT OF PATHOLOGY AND GENOMIC MEDICINE HCT 28.5 (L) 41.0 - 51.0 % [facility] DEPARTMENT OF PATHOLOGY AND GENOMIC MEDICINE MCV 77.7 (L) 82.0 - 100.0 fL [facility] DEPARTMENT OF PATHOLOGY AND GENOMIC MEDICINE MCH 22.3 (L) 27.0 - 34.0 pg [facility] DEPARTMENT OF PATHOLOGY AND GENOMIC MEDICINE MCHC 28.8 (L) 31.0 - 37.0 g/dL [facility] DEPARTMENT OF PATHOLOGY AND GENOMIC MEDICINE RDW - SD 51.3 37.0 - 55.0 fL [facility] DEPARTMENT OF PATHOLOGY AND GENOMIC MEDICINE MPV 9.5 8.8 - 13.2 fL [facility] DEPARTMENT OF PATHOLOGY AND GENOMIC MEDICINE Platelet count 230 150 - 400 k/uL [facility] DEPARTMENT OF PATHOLOGY AND GENOMIC MEDICINE Nucleated RBC 0.00 /100 WBC [facility] DEPARTMENT OF PATHOLOGY AND GENOMIC MEDICINE Neutrophils 70.9 (H) 39.0 - 69.0 % [facility] DEPARTMENT OF PATHOLOGY AND GENOMIC MEDICINE Lymphocytes 14.9 (L) 25.0 - 45.0 % [facility] DEPARTMENT OF PATHOLOGY AND GENOMIC MEDICINE Monocytes 9.1 0.0 - 10.0 % [facility] DEPARTMENT OF PATHOLOGY AND GENOMIC MEDICINE Eosinophils 3.8 0.0 - 5.0 % [facility] DEPARTMENT OF PATHOLOGY AND GENOMIC MEDICINE Basophils 0.4 0.0 - 1.0 % [facility] DEPARTMENT OF PATHOLOGY AND GENOMIC MEDICINE Specimen Blood Performing Organization Address City/State/Zipcode Phone Number [facility] [address] [place] [address] PATHOLOGY [facility] MEDICINE * B natriuretic peptide (05/15/2018 7:54 AM CDT) Only the most recent of 2 results within the time period is included. [facility] BNP 58 0 - 100 pg/mL [facility] DEPARTMENT PATHOLOGY AND GENOMIC MEDICINE Specimen Blood Performing Organization Address [facility] Phone Number [address] [place] [address] PATHOLOGY AND [facility] * Basic metabolic panel (05/15/2018 7:54 AM CDT) Only the most recent of 5 results within the time period is included. [facility] Sodium 143 135 - 148 mEq/L [facility] DEPARTMENT OF PATHOLOGY AND GENOMIC MEDICINE Potassium 4.8 3.5 - 5.0 mEq/L [facility] DEPARTMENT OF PATHOLOGY AND GENOMIC MEDICINE Chloride 102 98 - 112 mEq/L [facility] DEPARTMENT OF PATHOLOGY AND GENOMIC MEDICINE CO2 29 24 - 31 mEq/L [facility] DEPARTMENT OF PATHOLOGY AND GENOMIC MEDICINE Anion gap 12@ANIO 7 - 15 mEq/L [facility] DEPARTMENT OF PATHOLOGY AND GENOMIC MEDICINE BUN 16 8 - 23 mg/dL [facility] DEPARTMENT OF PATHOLOGY AND GENOMIC MEDICINE Creatinine 1.40 (H) 0.70 - 1.20 mg/dL [facility] DEPARTMENT OF PATHOLOGY AND GENOMIC MEDICINE Glucose 168 (H) 65 - 99 mg/dL [facility] DEPARTMENT OF PATHOLOGY AND GENOMIC MEDICINE Calcium 9.9 8.8 - 10.2 mg/dL [facility] DEPARTMENT OF PATHOLOGY AND [employer] [facility] Specimen Plasma specimen Performing Organization Address [facility] Phone Number [address] [place] [address] PATHOLOGY AND [employer] [facility] * POC glucose (05/15/2018 5:50 AM CDT) Only the most recent of 15 results within the time period is included. [facility] POC glucose 149 (H) 65 - 99 mg/dL [facility] Comment: DEPARTMENT OF Meter ID: [id number] PATHOLOGY AND Intern Brand: Jose Duggan GENOMIC MEDICINE Specimen Performing Organization Address [facility] Phone Number [address] [place] [address] PATHOLOGY AND [facility] * Echocardiogram complete w contrast and 3D if needed (05/14/2018 1:50 PM CDT) [facility] Velocity Ratio 0.78 m/s [facility] (V1/V2) IVS,d 1.24 cm [facility] Ao root annulus 3.21 cm [facility] EF 58.63 % [facility] LA volume 35.0 cm3 [facility] LVPWD,d 1.20 cm [facility] AoV Mean PG 8.87 mmHg [facility] AV LVOT peak 8.79 mmHg [facility] gradient MV mean 3.30 mmHg [facility] gradient MV valve area p 2.91 cm2 [facility] 1/2 method E/A ratio 0.80 [facility] E wave 260.49 msec [facility] decelartion time LVOT Diam,S 1.95 cm [facility] LVOT area 2.98 cm2 [facility] LVOT Vmax 1.48 m/s [facility] LVOT VTI 0.39 m [facility] AoV Peak PG 14.40 mmHg [facility] MV Peak E Bartolo 1.21 m/s [facility] MV stenosis 75.54 ms [facility] pressure 1/2 time MV Peak A Bartolo 1.52 m/s [facility] LV Vol,s A2C 55.88 mL [facility] LV Systolic 22.81 mL/m2 [facility] Volume Index LV Vol,d A2C 132.97 mL [facility] LV Diastolic 54.27 mL/m2 [facility] Volume Index LA Volume Index 14.29 mL/m2 [facility] BSA 2.45 m2 [facility] AoV Area, Vmax 2.34 cm2 [facility] AoV Area, VTI 3.05 cm2 [facility] AoV Vmax 1.90 m/s [facility] BSA Almeida 2.63 m2 [facility] BSA Haycock 2.62 m2 [facility] IVS/LVPW,2D 1.03 [facility] LA Area d A4C 52 cm2 [facility] LV,d 4.87 cm [facility] LV,s 3.36 cm [facility] LV Vol,d A4C 156.50 ml [facility] LV Vol,s A4C 47.87 ml [facility] BMI 41.90 kg/m2 [facility] MV E A ratio 0.80 mmHg [facility] AoV area i VTI 1.24 cm2/m2 [facility] BSA Richardson MR peak grad 8.22 mmHg [facility] LV SYS VOL 46.03 ml [facility] LV SANTANA VOL 111.26 ml [facility] LA diam s 4.90 cm [facility] LA Vol MOD A4C 52.41 ml [facility] LV SI Teich 2D 26.61 ml/m2 [facility] LV SV Teich 2D 65.22 ml [facility] LV Vol s Teich 46.03 ml [facility] PSAX LVOT SI 47.68 ml/m2 [facility] MV Vmax 1.43 m [facility] MV VTI Tips 0.39 m [facility] AoV Cusp sep 1.98 [facility] Aortic Root 3.20 cm [facility] AoV Vmn 1.44 [facility] IVS s 2D 1.30 [facility] LA Ao Ratio 1.53 [facility] Mmode LV FS Cube 2D 31.06 [facility] LV FS Teich 2D 31.06 [facility] D E excurs 1.50 [facility] E f slope 0.05 [facility] E prime lat 0.08 [facility] E umer sept 0.06 [facility] PV acc T slope 9.10 [facility] PV AT 128.03 msec [facility] AoV VTI 0.38 m [facility] LV EF,A2C 57.97 % [facility] LV EF,A4C 69.41 % [facility] LV EF,BP 65.10 % [facility] Carter Elton,d A2C 8.56 cm [facility] Carter Elton,d A4C 9.40 cm [facility] Carter Elton,s A2C 7.30 cm [facility] Carter Elton,s A4C 7.78 cm [facility] LV SV,A2C 77.09 % [facility] LV SV,A4C 108.62 % [facility] LV Vol,d BP 150.77 ml [facility] LV Vol,s BP 52.62 nl [facility] LVOT Vmn 1.11 [facility] Pt Size 177.80 [facility] Pt Wt 132.45 [facility] LVOT mean grad 5.42 mmHg [facility] LVPW s PLAX 1.34 cm [facility] MV Decel slope 4.65 m/s2 [facility] LV EF,2D 67.23 % [facility] LV SV,BP 98.15 % [facility] LV SI MOD BP 40.04 ml/m2 [facility] BSA Jann LV Vol Index s 61.50 ml/m2 [facility] bpmod BSA Richardson PV Vmn 21.46 m/s [facility] MV AE ratio 1.26 [facility] Aov area Vmn 2.32 cm2 [facility] AoV area I VMN 0.95 cm2/m2 [facility] bsa IVS pct thck 5.11 % [facility] PLAX LV SI Cube 2D 31.69 ml/m2 [facility] LV SV Cube 2D 77.70 ml [facility] LV vol d cube 115.56 ml [facility] 2D LV vol s cube 37.87 ml [facility] 2D LVPW pct thck 11.98 % [facility] PLAX Specimen Narrative Performed At [facility] The left ventricle chamber size is normal. Left Ventricular ejection fraction is 55 - 60%. There is mild left ventricular concentric hypertrophy. Left atrium size is mildly dilated. No pericardial effusion Performing Organization Address [facility] Phone Number [facility] [address] [place] [address] * ECG 12 lead (05/14/2018 11:13 AM CDT) Only the most recent of 2 results within the time period is included. Ventricular 72 [facility] rate Atrial rate 72 [facility] NE interval 188 [facility] QRSD interval 144 [facility] QT interval 436 [facility] QTC interval 477 [facility] P axis 1 55 [facility] QRS axis 1 -69 [facility] T wave axis 38 [facility] EKG impression Sinus rhythm with occasional [facility] premature ventricular complexes-Right bundle branch block-Left anterior fascicular block-^^^ Bifascicular block ^^^-Lateral infarct (cited on or before 15-MAR-2018)-Abnormal ECG- Specimen Performing Organization Address [facility] Phone Number [facility] [address] [place] [address] * D-dimer (05/13/2018 10:33 AM CDT) D-dimer 1.39 (H) 0.00 - 0.40 ug/mL [facility] Comment: FEU DEPARTMENT OF Units are ug/ml Fibrinogen PATHOLOGY AND Equivalent Unit. GENOMIC When combined with low MEDICINE clinical probability, D-dimer results of less than 0.5 ug/ml FEU have a good negativepredictive value in excluding PE or DVT. For D-dimer results greater than 0.5ug/ml FEU further testing is indicated if PE or DVT is suspectedclinically. Elevated D-dimer results have been reported in DVT, PE, and DIC cases and may indicate the presence of a clot. D-dimer results may be elevated due to old age, , inflammatory diseases, trauma, post-operative states, sepsis, and malignancies. Specimen Blood Performing Organization Address [facility]/Zipcode Phone Number [address] [place] [phone] PATHOLOGY AND GENOMIC MEDICINE * Pv duplex venous lower extremity (05/12/2018 12:05 AM CDT) Specimen Narrative Performed At [facility] Normal venous duplex scan of the right leg. Deep venous thrombosis is present in the left femoral and popliteal veins. Performing Organization Address City/[facility]/Zipcode Phone Number [facility] [address] [place] [address] * Type and screen (05/11/2018 3:15 PM CDT) ABO grouping B [facility] DEPARTMENT OF PATHOLOGY AND GENOMIC MEDICINE Rh type POS [facility] DEPARTMENT OF PATHOLOGY AND GENOMIC MEDICINE Antibody screen NEG [facility] DEPARTMENT OF PATHOLOGY AND GENOMIC MEDICINE Specimen Blood Performing Organization Address [facility] Phone Number [address] [place] [phone] PATHOLOGY AND GENOMIC MEDICINE * XR Tibia Fibula 2 Vw Right (05/11/2018 2:47 PM CDT) Specimen Narrative Performed At EXAMINATION:XR TIBIA FIBULA 2 VW RIGHT [facility] CLINICAL HISTORY:s p fall COMPARISON:None. FINDINGS: Interval fixation across the medial malleolus is present. Remodeling of the distal fibula is noted. Severe arthritic changes are noted involving the ankle joint, partially visualized. There is no evidence of an acute fracture. IMPRESSION: No evidence of acute fracture. [facility]-[id number] Procedure Note Interface, Radiology Results Incoming - 05/11/2018 2:54 PM CDT EXAMINATION: XR TIBIA FIBULA 2 VW RIGHT CLINICAL HISTORY: s p fall COMPARISON: None. FINDINGS: Interval fixation across the medial malleolus is present. Remodeling of the distal fibula is noted. Severe arthritic changes are noted involving the ankle joint, partially visualized. There is no evidence of an acute fracture. IMPRESSION: No evidence of acute fracture. [facility]-[id number] Performing Organization Address City/[facility]/Zipcode Phone Number [facility] [address] [place] [phone] * Manual differential (05/11/2018 2:15 PM CDT) Pathologist [facility] Manual PERFORMED [facility] differential DEPARTMENT OF PATHOLOGY AND GENOMIC MEDICINE Neutrophils 77.0 (H) 39.0 - 69.0 % [facility] DEPARTMENT OF PATHOLOGY AND GENOMIC MEDICINE Lymphocytes 15.0 (L) 25.0 - 45.0 % [facility] DEPARTMENT OF PATHOLOGY AND GENOMIC MEDICINE Monocytes 5.0 0.0 - 10.0 % [facility] DEPARTMENT OF PATHOLOGY AND GENOMIC MEDICINE Eosinophils 2.0 0.0 - 5.0 % [facility] DEPARTMENT OF PATHOLOGY AND GENOMIC MEDICINE Basophils 1.0 0.0 - 1.0 % [facility] DEPARTMENT OF PATHOLOGY AND GENOMIC MEDICINE Metamyelocytes 0 % [facility] DEPARTMENT OF PATHOLOGY AND GENOMIC MEDICINE Promyelocytes 0 % [facility] DEPARTMENT OF PATHOLOGY AND GENOMIC MEDICINE Platelet slide Saray adequate [facility] review DEPARTMENT OF PATHOLOGY AND GENOMIC MEDICINE Specimen Performing Organization Address [facility] Phone Number [address] [place] [address] PATHOLOGY AND GENOMIC MEDICINE * Partial thromboplastin time, activated (05/11/2018 2:15 PM CDT) Pathologist [facility] PTT 20.7 (L) 23.0 - 36.0 sec [facility] Comment: DEPARTMENT OF PTT therapeutic range for PATHOLOGY AND unfractionated heparin is GENOMIC 61.0-112.0 seconds which MEDICINE corresponds to Anti-Xa 0.3-0.7 U/ml. Specimen Blood Performing Organization Address [facility] [place] Phone Number [address] [place] [address] PATHOLOGY AND [facility] * Prothrombin time with INR (05/11/2018 2:15 PM CDT) Pathologist [facility] Prothrombin 13.3 12.0 - 15.0 sec [facility] time DEPARTMENT OF PATHOLOGY AND GENOMIC MEDICINE INR 1.0 [facility] Comment: DEPARTMENT OF The International Normalized PATHOLOGY AND Ratio (INR) is a therapeutic GENOMIC monitoring tool for patients MEDICINE who are stable on oral anticoagulant therapy. An INR of 2.0-3.0 is suggested for deep vein thrombosis/pulmonary embolism. Specimen Blood Performing Organization Address [facility] [place] Phone Number [address] [place] [address] PATHOLOGY AND GENOMIC MEDICINE * LACERATION REPAIR (05/11/2018 2:01 PM CDT) Narrative Performed At Osvaldo Lopez PA-C 05/12/20189:30 AM Laceration Repair Performed by: OSVALDO LOPEZ Authorized by: SERGEY VENTURA Consent: Consent obtained:Verbal Consent given by:Patient Risks discussed:Infection, pain, retained foreign body, tendon damage, vascular damage, poor cosmetic result, poor wound healing, need for additional repair and nerve damage Alternatives discussed:No treatment Anesthesia (see MAR for exact dosages): Anesthesia method:Local infiltration Local anesthetic:Lidocaine 2% WITH epi Laceration details: Location:Leg Leg location:R lower leg Length (cm):15 Repair type: Repair type:Intermediate Pre-procedure details: Preparation:Patient was prepped and draped in usual sterile fashion Exploration: Wound exploration: entire depth of wound probed and visualized Wound extent: no foreign bodies/material noted, no tendon damage noted and no underlying fracture noted Contaminated: no Treatment: Area cleansed with:Betadine, saline and soap and water Amount of cleaning:Extensive Irrigation solution:Sterile saline Irrigation volume:1000mL Irrigation method:Pressure wash Visualized foreign bodies/material removed: no Skin repair: Repair method:Sutures Suture size:4-0 Suture material:Prolene Suture technique:Simple interrupted (9 simpler interupted and 2 horizontal mattress) Number of sutures:11 Approximation: Approximation:Close Vermilion border: well-aligned Post-procedure details: Dressing:Non-adherent dressing Patient tolerance of procedure:Tolerated well, no immediate complications * CT Head Wo Contrast (03/15/2018 8:40 PM CDT) Specimen Narrative Performed At Procedure:CT HEAD WO CONTRAST RADIANT REFERRING PHYSICIAN:CHARO HARPER HISTORY:head injury on anticoagulant COMPARISON: None TECHNIQUE: Axial images were obtained of the head without intravenous contrast. All CT scan performed using radiation dose reduction techniques. Technical factors are evaluated and adjusted to ensure appropriate moderation of exposure. Automated dose management technology is applied to adjust the radiation dose to minimize expose whileachieving a diagnostic quality image. FINDINGS: Age-appropriate cortical atrophy is noted. Schwartz-white matter differentiation is maintained. The ventricular system is symmetric and midline. Minimum chronic ischemic small vessel white matter disease is seen. There is no evidence of acute hemorrhage. Nointra-axial or extra-axial lesion is seen. Probable left maxillary mucous retention cyst is noted. The visualized portion of the orbits, paranasal sinuses and mastoid air cells are otherwise unremarkable. The calvarium is intact. Scattered atherosclerotic calcifications of the intracranial vessel are noted IMPRESSION: No CT evidence of acute intracranial abnormality or hemorrhage. [id number] Procedure Note Interface, Radiology Results Incoming - 03/15/2018 8:48 PM CDT Procedure:CT HEAD WO CONTRAST REFERRING PHYSICIAN:CHARO HARPER HISTORY: head injury on anticoagulant COMPARISON: None TECHNIQUE: Axial images were obtained of the head without intravenous contrast. All CT scan performed using radiation dose reduction techniques. Technical factors are evaluated and adjusted to ensure appropriate moderation of exposure. Automated dose management technology is applied to adjust the radiation dose to minimize expose while achieving a diagnostic quality image. FINDINGS: Age-appropriate cortical atrophy is noted. Schwartz-white matter differentiation is maintained. The ventricular system is symmetric and midline. Minimum chronic ischemic small vessel white matter disease is seen. There is no evidence of acute hemorrhage. No intra-axial or extra-axial lesion is seen. Probable left maxillary mucous retention cyst is noted. The visualized portion of the orbits, paranasal sinuses and mastoid air cells are otherwise unremarkable. The calvarium is intact. Scattered atherosclerotic calcifications of the intracranial vessel are noted IMPRESSION: No CT evidence of acute intracranial abnormality or hemorrhage. [id number] Performing Organization Address City/State/Zipcode Phone Number [facility] [address] [place] [address] * ECG ED Preliminary Interpretation - NOT AN ORDER (03/15/2018 8:18 PM CDT) Narrative Performed At Charo Harper DO 03/15/2018 10:07 PM ECG ED Preliminary Interpretation - Not an Order Performed by: CHARO HARPER Authorized by: CHARO HARPER ECG reviewed by ED Physician in the absence of a territory manager: yes Interpretation: Interpretation: abnormal Rate: ECG rate:69 ECG rate assessment: normal Rhythm: Rhythm: sinus rhythm Ectopy: Ectopy: none QRS: QRS axis:Normal Conduction: Conduction: abnormal Abnormal conduction: complete RBBB ST segments: ST segments:Normal T waves: T waves: normal * LACERATION REPAIR (03/15/2018 8:18 PM CDT) Narrative Performed At Charo Harper DO 03/15/2018 10:07 PM Laceration Repair Performed by: BOBBY ZAMBRANO Authorized by: CHARO HARPER Consent: Consent obtained:Verbal Consent given by:Patient Risks discussed:Infection, need for additional repair, nerve damage, poor wound healing, poor cosmetic result, pain, retained foreign body, tendon damage and vascular damage Alternatives discussed:No treatment and delayed treatment Anesthesia (see MAR for exact dosages): Anesthesia method:None Laceration details: Location:Scalp Scalp location:Occipital Length (cm):2 Depth (mm):2 Repair type: Repair type:Simple Pre-procedure details: Preparation:Patient was prepped and draped in usual sterile fashion and imaging obtained to evaluate for foreign bodies Exploration: Hemostasis achieved with:Direct pressure Wound exploration: entire depth of wound probed and visualized Wound extent: no foreign bodies/material noted and no underlying fracture noted Contaminated: no Treatment: Area cleansed with:Betadine and saline Amount of cleaning:Standard Irrigation solution:Sterile saline Irrigation volume:250ml Irrigation method:Pressure wash Visualized foreign bodies/material removed: no Skin repair: Repair method:Mino Number of mino:2 Approximation: Approximation:Close Post-procedure details: Dressing:Open (no dressing) Patient tolerance of procedure:Tolerated well, no immediate complications after 03/14/2018 Insurance Type Payer Benefit Subscriber ID Effective Phone Address Plan / Dates Group Medicare MEDICARE MEDICARE xxxxxxxxxx 2003- [place], PART A AND Present [place] B xxxxxxxxx 2012- FOR LIFE Present Advance Directives Patient has advance care planning documents on file. For more information, stephen delgado contact: Bruce Rodgers [address] [place] [address]
[2019-03-15] MEDS ORDERED: BACITRACIN ZINC 0.9GM TP ONE (14:15)
[2019-03-15 14:24] LABS: BASOPHILS % 0.4 % (0.0-1.0); EOSINOPHILS # (AUTO) 0.2 (0.0-0.4); EOSINOPHILS % 2.1 % (0.0-6.0); HEMATOCRIT 34.9 % (38.2-49.6); HEMOGLOBIN 10.6 g/dL (14.0-18.0); LYMPHOCYTES # (AUTO) 0.7 (1.0-3.2); LYMPHOCYTES % 9.1 % (18.0-39.1); MEAN CORPUSCULAR HEMOGLOBIN 24.4 pg (28-32); MEAN CORPUSCULAR HGB CONC 30.4 g/dL (31-35); MEAN CORPUSCULAR VOLUME 80.2 fL (81-99); MONOCYTES # (AUTO) 0.7 (0.2-0.8); MONOCYTES % 8.2 % (4.4-11.3); NEUTROPHILS # (AUTO) 6.5 (2.1-6.9); NEUTROPHILS % 79.8 % (38.7-80.0); PLATELET COUNT 195 x10e3/uL (140-360); RED BLOOD COUNT 4.35 x10e6/uL (4.3-5.7); RED CELL DISTRIBUTION WIDTH 18.9 % (11.7-14.4)
[2019-03-15] MEDS ORDERED: HYDROCODONE/APAP 5MG-325MG TAB PO NR (14:30)
[2019-03-15] MEDS ORDERED: ONDANSETRON HCL 4 MG ORAL DISINTEGRATING TAB PO NR (14:30)
[2019-03-15 14:37] LABS: INR 0.91; PROTHROMBIN TIME 12.7 seconds (11.9-14.5)
[2019-03-15 14:46] LABS: ALBUMIN 3.4 g/dL (3.5-5.0); ALBUMIN/GLOBULIN RATIO 0.9 (0.8-2.0); ANION GAP 14.5 mmol/L (8-16); CALCIUM 9.2 mg/dL (8.4-10.2); CREATININE, SERUM 1.54 mg/dL (0.72-1.25); POTASSIUM 4.5 mmol/L (3.5-5.1)
--- NOTE | 2019-03-15 14:54 | Diagnostic Imaging Report ---
Exam: Right knee radiographs-3 views; right lower leg radiographs-2 views History: Status post fall. Comparison: None Findings: No evidence of acute fracture or malalignment. There are moderate tricompartmental degenerative changes. There is quadriceps enthesopathy. No suprapatellar joint effusion. No evidence of acute fracture or malalignment within the tibia or fibula. There are old healed fracture deformities of the distal fibula and tibia. Postoperative changes status post ORIF of the medial malleolus. The hardware appears intact. Impression: No acute radiographic abnormality. Signed by: Dr. Cassius Appiah MD on 03/15/2019 2:50 PM
--- NOTE | 2019-03-15 14:56 | Diagnostic Imaging Report ---
History: Fall, rule out stroke Comparison studies:None Technique: Axial images were obtained from the brain and cervical spine. Coronal and sagittal images reconstructed from the axial data. Intravenous contrast: None Dose modulation, iterative reconstruction, and/or weight based adjustment of the mA/kV was utilized to reduce the radiation dose to as low as reasonably achievable. Findings: Head CT: Scalp/skull: Right frontal small scalp hematoma. No fractures, blastic or lytic lesions. Brain sulci: Moderately prominent. Ventricles: Normal in size and configuration. No hydrocephalus. Extra-axial spaces: No masses. No fluid collections. Parenchyma: Scattered small hypodensities of the supratentorial white matter, nonspecific and most commonly seen with mild chronic microvascular ischemic changes. No masses, hemorrhage, acute or chronic cortical vascular insults. Sellar/suprasellar region: No abnormalities. Craniocervical junction: Patent foramen magnum. No Chiari one malformation. Atherosclerotic calcifications of the carotid siphons and vertebral arteries. Bilateral cataract surgery changes. Cervical spine CT: Fractures: None. Soft tissues: No gross abnormalities. Atlantoaxial articulation: Degenerative changes without acute abnormality. Alignment: Straightening of the normal lordosis. No scoliosis. Cervicomedullary junction: No abnormalities. Patent foramen magnum. Vertebrae: No infection or neoplasm. Degenerative changes: Anterior flowing osteophytes from C2 through, could be seen in DISH. No significant (moderate or severe canal stenosis or foraminal narrowing. Incidental findings: Atherosclerotic calcifications of the carotid bulbs. Impression: Head CT: 1. No acute intracranial abnormality. 2. Small right frontal scalp hematoma. Cervical spine CT: 1. No acute abnormalities. Degenerative changes as described. 2. Cannot exclude ligament, spinal cord and or vascular abnormalities on the basis of this examination. Signed by: DR Harsha Diamond M.D. on 03/15/2019 2:53 PM
== END 2019-03-15 15:26 | disposition home or self-care (01) ==
LOC: ER 12:41
DX: S00.03XA Contusion of scalp, initial encounter (principal); S80.01XA Contusion of right knee, initial encounter; S80.11XA Contusion of right lower leg, initial encounter; W18.2XXA Fall in (into) shower or empty bathtub, initial encounter; Y92.012 Bathroom of single-family (private) house as the place of occurrence of the external cause; M54.2 Cervicalgia; E11.9 Type 2 diabetes mellitus without complications; I10 Essential (primary) hypertension; I25.10 Atherosclerotic heart disease of native coronary artery without angina pectoris; G47.30 Sleep apnea, unspecified; Z86.718 Personal history of other venous thrombosis and embolism; Z79.01 Long term (current) use of anticoagulants
CPT/HCPCS: 36415; 70450; 72125; 73562; 73590; 80053; 85025; 85610; 85730; 99284; Q0162

== ENCOUNTER 2019-04-19 16:48 | Inpatient (IN) | payer MEDICARE, OTHER ==
[~2019-04-19] VITALS: Ht 172.7 cm; Wt 118.0 kg
--- OUTSIDE RECORDS SUMMARY | 2019-04-19 16:52 | XMS REPORT | Continuity of Care Document ---
Author Author [employer] Address Unknown Phone Unavailable Care Team Providers Care Strip Feeder Name Role Phone [phone] Unavailable Unavailable Problems Problem Status Onset Date Classification Date Reported Comments Source CHF Active Problem 05/24/2018 [facility] CKD Active Problem 05/24/2018 [facility] COPD exacerbation Active Problem 05/24/2018 [facility] Cellulitis Active Problem 05/24/2018 [facility] Cellulitis of leg Active Problem 05/24/2018 [facility] Chest pain Active Problem 05/24/2018 [facility] Diabetes Active Problem 05/24/2018 [facility] Gangrene Active Problem 05/24/2018 [facility] Hypoglycemia Active Problem 05/24/2018 [facility] Hypotension Active Problem 05/24/2018 [facility] Obesity Active Problem 05/24/2018 [facility] Renal insufficiency Active Problem 05/24/2018 [facility] Syncope Active Problem 05/24/2018 [facility] UTI Active Problem 05/24/2018 [facility] Weakness Active Problem 05/24/2018 [facility] Medications Medication Details Route Status Patient Instructions Ordering Provider Order Date Source Aspirin (Aspir 81) 81 Mg Tablet.dr, 81 Mg Oral Daily Active 05/16/2018 [facility] Clopidogrel Bisulfate (Clopidogrel) 75 Mg Tablet, 75 Mg Oral Daily Active 05/16/2018 [facility] Docusate Sodium 100 Mg Capsule, 100 Mg Oral Daily Active 05/16/2018 [facility] Furosemide (Lasix) 20 Mg Tablet, 60 Mg Oral Daily Active 05/16/2018 [facility] Gabapentin 300 Mg Capsule, 300 Mg Oral Daily Active 05/16/2018 [facility] Nph, Human Insulin Isophane (Novolin N) 100 Unit/1 Ml Vial, 60 Units Sub-Q Today At 9:00PM Active 05/16/2018 [facility] Valsartan (Diovan) 80 Mg Tab, 80 Mg Oral Daily Active 05/16/2018 [facility] Oseltamivir Phosphate (Tamiflu) 75 Mg Cap, 75 Mg Oral Twice A Day Active 02/01/2018 [facility] Prednisone 20 Mg Tab, 20 Mg Oral Twice A Day Active 02/01/2018 [facility] Levofloxacin (Levaquin) 500 Mg Tablet, 500 Mg Oral Daily Active 08/14/2017 [facility] Paricalcitol (Zemplar) 1 Mcg Capsule, Mon.isaias. Active 08/14/2017 [facility] Salmeterol Xinafoate/Fluticasone (Advair 500/50*) 1 Ea Aerp, 1 Inh Inhalation Every 12 Hours Active 08/14/2017 [facility] Docusate Sodium 100 Mg Capsule, 100 Mg Oral Active 01/01/2017 [facility] Gabapentin 300 Mg Capsule, 300 Mg Oral Daily Active 01/01/2017 [facility] Allopurinol 300 Mg Tablet, 300 Mg Oral Daily Active 10/18/2016 [facility] Nifedipine (Nifedipine Er) 30 Mg Tab.er.24, Active 10/18/2016 [facility] Acetaminophen With Codeine (Tylenol With Codeine #3 Tablet) 1 Each Tablet Every 6 Hours as needed for Pain Active [facility] Albuterol Sulfate (Proair Hfa Inhaler*) 8.5 Gm Inh Twice A Day Active 1 PUFF [facility] Allopurinol 100 Mg Tablet Daily Active [facility] Cetirizine Hcl 10 Mg Tablet Daily Active [facility] Diclofenac Sodium (Solaraze) 100 Gm Gel..gram. Every 6 Hours Active [facility] Eliquis 5 Twice A Day Active [facility] Esomeprazole Magnesium (Nexium) 40 Mg Capsule. Daily Active PROTONIX THERAPEUTIC SUBSTITUTE FOR NEXIUM PER [facility] Ferrous Sulfate 325 Mg Tablet Daily Active [facility] Gabapentin 300 Mg Capsule Three Times A Day Active [facility] Levothyroxine Sodium 50 Mcg Tablet Daily Active [facility] Liothyronine Sodium 5 Mcg Tablet Daily Active [facility] Melatonin 3 Mg Tablet Bedtime as needed for Insomnia Active [facility] Nifedipine (Nifedipine Er) 60 Mg Tab.er.24 Daily [facility] Nph, Human Insulin Isophane (Novolin N) 100 Unit/1 Ml Vial Daily [facility] Omeprazole 40 Mg Capsule. Daily Active [facility] Sertraline Hcl 100 Mg Tablet Bedtime Active [facility] Simvastatin 40 Mg Tablet Today At 9:00PM [facility] Vit D-2 Weekly [facility] Allergies, Adverse Reactions, Alerts Substance Category Reaction Severity Reaction type Status Date Reported Comments Source penicillin Unknown Allergy to Substance Active 05/16/2018 [facility] Immunizations No Data Provided for This Section Results Order Name Results Value Reference Range Date Interpretation Comments Source Capillary blood glucose measurement by glucometer (mass/volume) Capillary blood glucose measurement by glucometer (mass/volume) 99 70 - 120 05/23/2018 [facility] Automated blood basophil count (count/volume) Automated blood basophil count (count/volume) 0.1 0.0 - 0.1 05/23/2018 [facility] Automated blood basophil count as percentage of total leukocytes Automated blood basophil count as percentage of total leukocytes 0.9 0.0 - 1.0 05/23/2018 [facility] Automated blood eosinophil count Automated blood eosinophil count 0.3 0.0 - 0.4 05/23/2018 [facility] Automated blood eosinophil count as percentage of total leukocytes Automated blood eosinophil count as percentage of total leukocytes 4.6 0.0 - 6.0 05/23/2018 [facility] Automated blood hematocrit (volume fraction) Automated blood hematocrit (volume fraction) 32.6 38.2 - 49.6 05/23/2018 [facility] Automated blood lymphocyte count as percentage ot total leukocytes Automated blood lymphocyte count as percentage ot total leukocytes 14.3 18.0 - 39.1 05/23/2018 [facility] Automated blood monocyte count as percentage of total leukocytes Automated blood monocyte count as percentage of total leukocytes 9.1 4.4 - 11.3 05/23/2018 [facility] Automated blood neutrophil count Automated blood neutrophil count 4.7 2.1 - 6.9 05/23/2018 [facility] Automated blood platelet count (count/volume) Automated blood platelet count (count/volume) 215 140 - 360 05/23/2018 [facility] Automated blood segmented neutrophil count as percentage of total leukocytes Automated blood segmented neutrophil count as percentage of total leukocytes 70.7 38.7 - 80.0 05/23/2018 [facility] Automated erythrocyte mean corpuscular hemoglobin (mass per erythrocyte) Automated erythrocyte mean corpuscular hemoglobin (mass per erythrocyte) 24.1 28 - 32 05/23/2018 [facility] Automated erythrocyte mean corpuscular hemoglobin concentration measurement (mass/volume) Automated erythrocyte mean corpuscular hemoglobin concentration measurement (mass/volume) 29.4 31 - 35 05/23/2018 [facility] Automated erythrocyte mean corpuscular volume Automated erythrocyte mean corpuscular volume 81.7 81 - 99 05/23/2018 [facility] Blood erythrocytes automated count (number/volume) Blood erythrocytes automated count (number/volume) 3.99 4.3 - 5.7 05/23/2018 [facility] Blood hemoglobin measurement (moles/volume) Blood hemoglobin measurement (moles/volume) 9.6 14.0 - 18.0 05/23/2018 [facility] Blood leukocytes automated count (number/volume) Blood leukocytes automated count (number/volume) 6.69 4.8 - 10.8 05/23/2018 [facility] Blood lymphocytes count (number/volume) Blood lymphocytes count (number/volume) 1.0 1.0 - 3.2 05/23/2018 [facility] Blood monocytes automated count (number/volume) Blood monocytes automated count (number/volume) 0.6 0.2 - 0.8 05/23/2018 [facility] Red Cell Distribution Width 21.7 11.7 - 14.4 05/23/2018 [facility] IM GRANULOCYTES % 0.4 0.0 - 1.0 05/23/2018 [facility] Absolute Immature Granulocyte (auto 0.03 0 - 0.1 05/23/2018 [facility] Estimated glomerular filtration rate (GFR) determination Estimated glomerular filtration rate (GFR) determination 52 60 05/22/2018 [facility] Glucose measurement Glucose measurement 210 74 - 118 05/22/2018 [facility] Plasma globulin measurement (mass/volume) Plasma globulin measurement (mass/volume) 2.9 2.3 - 3.5 05/22/2018 [facility] Serum or plasma alanine aminotransferase measurement (enzymatic activity/volume) Serum or plasma alanine aminotransferase measurement (enzymatic activity/volume) 14 0 - 55 05/22/2018 [facility] Serum or plasma albumin measurement (mass/volume) Serum or plasma albumin measurement (mass/volume) 3.0 3.5 - 5.0 05/22/2018 [facility] Serum or plasma albumin/globulin mass ratio Serum or plasma albumin/globulin mass ratio 1.0 0.8 - 2.0 05/22/2018 [facility] Serum or plasma alkaline phosphatase measurement (enzymatic activity/volume) Serum or plasma alkaline phosphatase measurement (enzymatic activity/volume) 141 40 - 150 05/22/2018 [facility] Serum or plasma anion gap Serum or plasma anion gap 14.2 8 - 16 05/22/2018 [facility] Serum or plasma calcium measurement (mass/volume) Serum or plasma calcium measurement (mass/volume) 9.3 8.4 - 10.2 05/22/2018 [facility] Serum or plasma carbon dioxide, total measurement (moles/volume) Serum or plasma carbon dioxide, total measurement (moles/volume) 24 22 - 29 05/22/2018 [facility] Serum or plasma chloride measurement (moles/volume) Serum or plasma chloride measurement (moles/volume) 106 98 - 107 05/22/2018 [facility] Serum or plasma creatinine measurement (mass/volume) Serum or plasma creatinine measurement (mass/volume) 1.33 0.72 - 1.25 05/22/2018 [facility] Serum or plasma potassium measurement (moles/volume) Serum or plasma potassium measurement (moles/volume) 4.2 3.5 - 5.1 05/22/2018 [facility] Serum or plasma protein measurement (mass/volume) Serum or plasma protein measurement (mass/volume) 5.9 6.5 - 8.1 05/22/2018 [facility] Serum or plasma sodium measurement (moles/volume) Serum or plasma sodium measurement (moles/volume) 140 136 - 145 05/22/2018 [facility] Serum or plasma total bilirubin measurement (mass/volume) Serum or plasma total bilirubin measurement (mass/volume) 0.3 0.2 - 1.2 05/22/2018 [facility] Serum or plasma urea nitrogen measurement (mass/volume) Serum or plasma urea nitrogen measurement (mass/volume) 14 7 - 26 05/22/2018 [facility] Serum or plasma urea nitrogen/creatinine mass ratio Serum or plasma urea nitrogen/creatinine mass ratio 11 6 - 25 05/22/2018 [facility] Aspartate Amino Transf (AST/SGOT) 16 5 - 34 05/22/2018 [facility] Stool gastrointestinal hemoglobin detection Stool gastrointestinal hemoglobin detection NEGATIVE NEGATIVE 05/21/2018 [facility] Serum or plasma trough vancomycin level at trough (mass/volume) Serum or plasma trough vancomycin level at trough (mass/volume) 10.9 5.0 - 10.0 05/21/2018 [facility] Blood anisocytosis detection by light microscopy Blood anisocytosis detection by light microscopy SLIGHT 05/20/2018 [facility] Blood platelets count by estimate (number/volume) Blood platelets count by estimate (number/volume) ADEQUATE 05/20/2018 [facility] Blood poikilocytosis detection by light microscopy Blood poikilocytosis detection by light microscopy SLIGHT 05/20/2018 [facility] Manual blood eosinophil count as percentage of total leukocytes Manual blood eosinophil count as percentage of total leukocytes 5 0 - 7 05/20/2018 [facility] Manual blood lymphocytes/100 leukocytes Manual blood lymphocytes/100 leukocytes 16 19 - 48 05/20/2018 [facility] Manual blood monocytes/100 leukocytes Manual blood monocytes/100 leukocytes 6 3.4 - 9.0 05/20/2018 [facility] Manual blood neutrophils/100 leukocytes Manual blood neutrophils/100 leukocytes 73 40 - 74 05/20/2018 [facility] Platelet morphology Platelet morphology NORMAL 05/20/2018 [facility] RBC morphology RBC morphology NORMAL 05/20/2018 [facility] Differential Total Cells Counted 100 05/20/2018 [facility] Blood culture Blood culture NO GROWTH AFTER 5 DAYS, FINAL REPORT 05/17/2018 [facility] Serum or plasma iron binding capacity measurement (mass/volume) Serum or plasma iron binding capacity measurement (mass/volume) 386 261 - 478 05/17/2018 [facility] Serum or plasma iron measurement (mass/volume) Serum or plasma iron measurement (mass/volume) 22 65 - 175 05/17/2018 [facility] Serum or plasma iron saturation measurement (mass fraction) Serum or plasma iron saturation measurement (mass fraction) 6 15 - 50 05/17/2018 [facility] Serum or plasma thyrotropin measurement by detection limit <=0.005 miu/l (units/volume) Serum or plasma thyrotropin measurement by detection limit <=0.005 miu/l (units/volume) 1.233 0.350 - 4.940 05/17/2018 [facility] Serum or plasma transferrin measurement (mass/volume) Serum or plasma transferrin measurement (mass/volume) 276 174 - 364 05/17/2018 [facility] Automated urine sediment leukocyte count by microscopy (number/high power field) Automated urine sediment leukocyte count by microscopy (number/high power field) <5 0 - 5 05/17/2018 [facility] Bacteria detection in urine sediment by light microscopy Bacteria detection in urine sediment by light microscopy NONE NONE 05/17/2018 [facility] Epithelial cells detection in urine sediment by light microscopy Epithelial cells detection in urine sediment by light microscopy FEW NONE 05/17/2018 [facility] Erythrocytes detection in urine sediment by light microscopy Erythrocytes detection in urine sediment by light microscopy NONE 0 - 5 05/17/2018 [facility] Specific gravity of Urine by Test strip Specific gravity of Urine by Test strip 1.005 1.010 - 1.025 05/17/2018 [facility] Urine clarity Urine clarity CLEAR CLEAR 05/17/2018 [facility] Urine color determination Urine color determination YELLOW YELLOW 05/17/2018 [facility] Urine erythrocytes detection Urine erythrocytes detection NEGATIVE NEGATIVE 05/17/2018 [facility] Urine glucose detection Urine glucose detection NEGATIVE NEGATIVE 05/17/2018 [facility] Urine ketones detection by automated test strip Urine ketones detection by automated test strip NEGATIVE NEGATIVE 05/17/2018 [facility] Urine leukocyte esterase detection by dipstick Urine leukocyte esterase detection by dipstick TRACE NEGATIVE 05/17/2018 [facility] Urine nitrite detection Urine nitrite detection NEGATIVE NEGATIVE 05/17/2018 [facility] Urine pH measurement by automated test strip Urine pH measurement by automated test strip 7 5 - 7 05/17/2018 [facility] Urine protein measurement by test strip (mass/volume) Urine protein measurement by test strip (mass/volume) NEGATIVE NEGATIVE 05/17/2018 [facility] Urine total bilirubin measurement (mass/volume) Urine total bilirubin measurement (mass/volume) NEGATIVE NEGATIVE 05/17/2018 [facility] Urine urobilinogen measurement by test strip (mass/volume) Urine urobilinogen measurement by test strip (mass/volume) 0.2 0.2 - 1 05/17/2018 [facility] Phosphorus measurement Phosphorus measurement 3.4 2.3 - 4.7 05/17/2018 [facility] Serum or plasma creatine kinase MB measurement (mass/volume) Serum or plasma creatine kinase MB measurement (mass/volume) 2.50 0 - 5.0 05/17/2018 [facility] Serum or plasma creatine kinase measurement (enzymatic activity/volume) Serum or plasma creatine kinase measurement (enzymatic activity/volume) 147 30 - 200 05/17/2018 [facility] Serum or plasma magnesium measurement (mass/volume) Serum or plasma magnesium measurement (mass/volume) 1.9 1.3 - 2.1 05/17/2018 [facility] Troponin I measurement by highly sensitive enzyme immunoassay Troponin I measurement by highly sensitive enzyme immunoassay 0.062 0 - 0.300 05/17/2018 [facility] Activated partial thromboplastin time (aPTT) in platelet poor plasma bycoagulation assay Activated partial thromboplastin time (aPTT) in platelet poor plasma bycoagulation assay 26.4 23.8 - 35.5 05/16/2018 [facility] INR in Platelet poor plasma by Coagulation assay INR in Platelet poor plasma by Coagulation assay 1.02 05/16/2018 [facility] Prothrombin time (PT) in platelet poor plasma by coagulation assay Prothrombin time (PT) in platelet poor plasma by coagulation assay 14.3 11.9 - 14.5 05/16/2018 [facility] B-Type Natriuretic Peptide 51.7 0 - 100 05/16/2018 [facility] Hemoglobin A1c Percent 7.6 4.0 - 7.0 01/31/2018 [facility] Hyaline casts detection in urine sediment by light microscopy Hyaline casts detection in urine sediment by light microscopy <15 0 - 1 01/30/2018 [facility] Random serum or plasma vancomycin measurement (mass/volume) Random serum or plasma vancomycin measurement (mass/volume) 4.5 11/17/2017 [facility] Serum or plasma cholesterol in HDL measurement (mass/volume) Serum or plasma cholesterol in HDL measurement (mass/volume) 49 40 - 60 11/10/2017 [facility] Serum or plasma cholesterol in LDL measurement (mass/volume) Serum or plasma cholesterol in LDL measurement (mass/volume) 67 60 - 130 11/10/2017 [facility] Serum or plasma cholesterol measurement (mass/volume) Serum or plasma cholesterol measurement (mass/volume) 139 0 - 199 11/10/2017 [facility] Serum or plasma total cholesterol/cholesterol in HDL mass ratio Serum or plasma total cholesterol/cholesterol in HDL mass ratio 2.8 3.9 - 4.7 11/10/2017 [facility] Serum or plasma triglyceride measurement (mass/volume) Serum or plasma triglyceride measurement (mass/volume) 115 0 - 149 11/10/2017 [facility] Mucus detection in urine sediment by light microscopy Mucus detection in urine sediment by light microscopy FEW RARE 11/09/2017 [facility] Serum or plasma lipase measurement (enzymatic activity/volume) Serum or plasma lipase measurement (enzymatic activity/volume) 41 8 - 78 11/09/2017 [facility] Arterial blood base excess by calculation Arterial blood base excess by calculation 2.0 -2 - 3 - 2 08/14/2017 [facility] Arterial blood bicarbonate measurement (moles/volume) Arterial blood bicarbonate measurement (moles/volume) 27 23 - 28 08/14/2017 [facility] Arterial blood oxygen saturation measurement Arterial blood oxygen saturation measurement 85.0 95 - 98 08/14/2017 [facility] Arterial blood pH measurement Arterial blood pH measurement 7.39 7.31 - 7.41 08/14/2017 [facility] Arterial Blood Partial Pressure CO2 45 41 - 51 08/14/2017 [facility] Arterial Blood Partial Pressure O2 50 80 - 105 08/14/2017 [facility] Influenza virus A and B antigen identification by immunofluorescence Influenza virus A and B antigen identification by immunofluorescence POSITIVE FLU A NEGATIVE 08/14/2017 [facility] Fibrin D-dimer DDU measurement in platelet poor plasma (mass/volume) Fibrin D-dimer DDU measurement in platelet poor plasma (mass/volume) 1.23 0.00 - 0.45 08/14/2017 [facility] Pathology Reports No Data Provided for This [...] Date DC Date Status Source Discharged Inpatient [id number] ELVER HAGER MD 08/16/2017 08/20/2017 [facility] Registered Clinic [id number] [facility] MD 09/28/2017 [facility] Discharged Inpatient [id number] ELVER HAGER MD 10/19/2017 10/23/2017 [facility] Discharged Inpatient [id number] ELVER HAGER MD 11/09/2017 11/20/2017 [facility] Discharged Inpatient [id number] ELVER HAGER MD 01/30/2018 02/01/2018 [facility] Discharged Inpatient [id number] ELVER HAGER MD 05/19/2018 05/23/2018 [facility] Procedures Procedure Code Date Perfomer Comments Source Computed tomography of brain without radiopaque contrast [id number] 01/30/2018 [facility] Magnetic resonance imaging of brain without contrast [id number] 11/14/2017 [facility] X-ray of chest, two views [id number] 10/21/2017 [facility] MRI [facility] of [facility] w/o dye [id number] 09/28/2017 [facility] Assessment and Plan No Data Provided for This Section Plan of Care Plan of Care Date Source Discharge Date 05/23/18 7:26pm Disposition HOME, SELF-CARE Instructions/Education Provided Cellulitis Prescriptions See Medication Section Referrals ELVER HAGER MD (Internal Medicine) Order Date: 1-2 Weeks Entered Date: 05/23/2018 6:17pm Address: [address] [place] [id number] 05/23/2018 [facility] Social History Social History Date Source Social [...] Start Date Stop Date Never Smoker 05/23/2018 [facility] Family History Value Date Source Relationship Condition [...] of hypertension Not Recorded 10/18/2016 8:20pm 05/23/2018 [facility] Advance Directives Order Name Results Value Date Source Advance Directives Advance Directives Directive Response Recorded Date/Time Does the patient have an advance directive? No 05/17/18 1:01am If yes, is advance directive on file with [facility]? No 05/17/18 1:01am If not on file with [facility] will patient provide a copy? Yes 05/17/18 1:01am Do you have a Directive to Physician? No 05/16/18 3:50pm Do you have a Medical Power of Customer Facilities Supervisor? No 05/16/18 3:50pm Do you have an [...] rights and responsibilities? Yes 05/16/18 3:50pm 05/23/2018 [facility] Functional Status No Data Provided for This Section
--- OUTSIDE RECORDS SUMMARY | 2019-04-19 16:52 | XMS REPORT | Clinical Summary ---
Author Author [facility] Organization [facility] Address Unknown Phone Unavailable Care Team Providers Care Cargo Handler Name Role Phone Jose Hdz DO PCP [...] capsule mouth daily as needed. 05/11/2018 Discontinued (Discontinued by another clinician) ergocalciferol (VITAMIN Take 50,000 0 D2) 50,000 unit capsule Units by mouth once a week. TAKES ON Sunday05/11/2018 Discontinued valsartan (DIOVAN) 80 MG Take 80 mg by 0 tablet mouth daily. 05/11/2018 Discontinued (Discontinued by another clinician) furosemide (LASIX) 20 mg Take 60 mg by 0 tablet mouth daily. 05/15/2018 Discontinued pantoprazole (PROTONIX) Take 40 mg by 0 40 MG EC tablet mouth daily. 05/15/2018 Discontinued (Stop Taking at Discharge) clopidogrel (PLAVIX) 75 Take 75 mg by 0 mg tablet mouth daily. 05/11/2018 Discontinued (Discontinued by another clinician) gabapentin (NEURONTIN) Take 600 mg 0 300 mg capsule by mouth nightly. 05/11/2018 Discontinued (Discontinued by another clinician) docusate sodium (COLACE) Take 100 mg 0 100 MG capsule by mouth every morning. 05/11/2018 Discontinued (Discontinued by another clinician) magnesium oxide 250 mg Take 250 mg 0 tablet by mouth nightly. 05/15/2018 Discontinued (Stop Taking at Discharge) aspirin (ECOTRIN) 81 MG Take 81 mg [...] [place] MD Mayen Nunez, MD John Kilpatrick, BAR Lai Postural dizziness with presyncope (Primary Dx); Symptomatic anemia; Acute renal failure, unspecified acute renal failure type; Deep vein thrombosis (DVT) of popliteal vein of left lower extremity, unspecified chronicity 05/11/2018 [facility] General Internal Medicine - Encounter 05/15/2018 after 04/18/2018 Family History Medical History Relation Name Comments Diabetes Father Heart disease Father Arthritis Mother Diabetes Mother Heart attack Mother Heart disease Mother Arthritis Sister Hypertension Sister Relation Name Status Comments Father Mother Sister Social History Date Tobacco Use Types Packs/Day Years Used Quit: 1995 Former Smoker Cigarettes Smokeless Tobacco: Never Used Drinks/Week oz/Week Comments Alcohol Use No Sex Assigned at Date Recorded Not on file Industry Job Start Date Occupation Not on file Not on file Not on file Travel End Travel History Travel Start No recent travel history available. Last Filed Vital Signs Reading Time Taken Comments Vital Sign 134/62 05/15/2018 6:58 AM CDT Blood Pressure 75 05/15/2018 7:37 AM CDT Pulse 36.2 C (97.1 F) 05/15/2018 6:58 AM CDT Temperature 18 05/15/2018 7:37 AM CDT Respiratory Rate 97% 05/15/2018 7:30 AM CDT Oxygen Saturation - - Inhaled Oxygen Concentration 132 kg (292 lb) 05/11/2018 2:00 PM CDT Weight 177.8 cm (5' 10") 05/11/2018 2:00 PM CDT Height 41.9 05/11/2018 2:00 PM CDT Body Mass Index Plan of Treatment Health Maintenance Due Date [...] MMODE SPECTRAL 1:50 PM CDT COLOR DOPPLER (99382) POC GLUCOSE Routine 05/14/2018 11:37 AM CDT [...] AND STAT 05/11/2018 DIFFERENTIAL 2:15 PM CDT DC LAYR CLOS WND Routine 05/11/2018 TRUNK,ARM,LEG 12.6-20 CM 2:01 PM CDT after 04/18/2018 Results * XR Chest 1 Vw Portable (05/15/2018 9:14 AM CDT) Specimen Narrative Performed At EXAMINATION:XR CHEST 1 VW PORTABLE RADIANT CLINICAL HISTORY:ICU ptunstable or clinical worsening COMPARISON:January 10, 2007 FINDINGS: The heart size is mildly enlarged accentuated by the AP technique. There are low lung volumes with mild basilar atelectasis. There are no additional findings of significance noted. IMPRESSION: Cardiomegaly with mild basilar atelectasis [id number] Procedure Note Hm Interface, Radiology Results Incoming - 05/15/2018 9:40 AM CDT EXAMINATION: XR CHEST 1 VW PORTABLE CLINICAL HISTORY: ICU pt unstable or clinical worsening COMPARISON: January 10, 2007 FINDINGS: The heart size is mildly enlarged accentuated by the AP technique. There are low lung volumes with mild basilar atelectasis. There are no additional findings of significance noted. IMPRESSION: Cardiomegaly with mild basilar atelectasis [id number] Performing Organization Address City/[facility]/Zipcode Phone Number [place] [address] [place] [address] * Smear review (05/15/2018 7:54 AM CDT) Only the most recent of 3 results within the time period is included. Pathologist [facility] Platelet slide Saray adequate [facility] [[email or web address]] review DEPARTMENT OF PATHOLOGY AND GENOMIC MEDICINE Anisocytosis ModerateComment: Moderate [facility] [[email or web address]] Hypochromia DEPARTMENT OF PATHOLOGY AND GENOMIC MEDICINE Tear drop cells Occasional [facility] [[email or web address]] DEPARTMENT OF PATHOLOGY AND GENOMIC MEDICINE Schistocytes Rare [facility] [[email or web address]] DEPARTMENT OF PATHOLOGY AND GENOMIC MEDICINE Ovalocytes Occasional [facility] [[email or web address]] DEPARTMENT OF PATHOLOGY AND GENOMIC MEDICINE Specimen Performing Organization Address [facility] Phone Number [address] [place] [id number] PATHOLOGY AND GENOMIC [facility] * Estimated GFR (05/15/2018 7:54 AM CDT) Only the most recent of 5 results within the time period is included. Pathologist [facility] Estimated GFR 47 (A) mL/min/1.73 m2 [facility] [[email or web address]] Comment: DEPARTMENT OF CatergoryUnitsInte PATHOLOGY AND rpretation GENOMIC G1 MEDICINE >=90 Normal or high G2 60-89Mildly decreased A0p34-04 Mildly to moderately decreased Q3n16-52 Moderately to severely decreased G4 15-29Severely decreased G5 <15Kidney failure The eGFR was calculated using the Chronic Kidney Disease Epidemiology Collaboration (CKD-EPI) equation. Interpretation is based on recommendations of the National Kidney Foundation-Kidney Disease Outcomes Quality Initiative (NKF-KDOQI) published in 2014. Specimen Plasma specimen Performing Organization Address [facility] Phone Number [facility] [[email or web address]] [address] [place] [id number] [place] [address] [place] [address] PATHOLOGY AND GENOMIC [facility] * CBC with platelet and differential (05/15/2018 7:54 AM CDT) Only the most recent of 4 results within the time period is included. Pathologist [facility] WBC 7.71 4.50 - 11.00 k/uL [facility] [[email or web address]] DEPARTMENT OF PATHOLOGY AND GENOMIC MEDICINE RBC 3.67 (L) 4.40 - 6.00 m/uL [facility] [[email or web address]] DEPARTMENT OF PATHOLOGY AND GENOMIC MEDICINE HGB 8.2 (L) 14.0 - 18.0 g/dL [facility] [[email or web address]] DEPARTMENT OF PATHOLOGY AND GENOMIC MEDICINE HCT 28.5 (L) 41.0 - 51.0 % [facility] [[email or web address]] DEPARTMENT OF PATHOLOGY AND GENOMIC MEDICINE MCV 77.7 (L) 82.0 - 100.0 fL [facility] [[email or web address]] DEPARTMENT OF PATHOLOGY AND GENOMIC MEDICINE MCH 22.3 (L) 27.0 - 34.0 pg [facility] [[email or web address]] DEPARTMENT OF PATHOLOGY AND GENOMIC MEDICINE MCHC 28.8 (L) 31.0 - 37.0 g/dL [facility] [[email or web address]] DEPARTMENT OF PATHOLOGY AND GENOMIC MEDICINE RDW - SD 51.3 37.0 - 55.0 fL [facility] [[email or web address]] DEPARTMENT OF PATHOLOGY AND GENOMIC MEDICINE MPV 9.5 8.8 - 13.2 fL [facility] OF PATHOLOGY AND GENOMIC MEDICINE Platelet count 230 150 - 400 k/uL [facility] [[email or web address]] DEPARTMENT OF PATHOLOGY AND GENOMIC MEDICINE Nucleated RBC 0.00 /100 WBC [facility] [[email or web address]] DEPARTMENT OF PATHOLOGY AND GENOMIC MEDICINE Neutrophils 70.9 (H) 39.0 - 69.0 % [facility] [[email or web address]] DEPARTMENT OF PATHOLOGY AND GENOMIC MEDICINE Lymphocytes 14.9 (L) 25.0 - 45.0 % [facility] [[email or web address]] DEPARTMENT OF PATHOLOGY AND GENOMIC MEDICINE Monocytes 9.1 0.0 - 10.0 % [facility] [[email or web address]] DEPARTMENT OF PATHOLOGY AND GENOMIC MEDICINE Eosinophils 3.8 0.0 - 5.0 % [facility] [[email or web address]] DEPARTMENT PATHOLOGY AND GENOMIC MEDICINE Basophils 0.4 0.0 - 1.0 % [facility] OF PATHOLOGY AND GENOMIC MEDICINE Specimen Blood Performing Organization Address City/[facility] Cent[facility] Phone Number [address] [place] [address] PATHOLOGY [facility] * B natriuretic peptide (05/15/2018 7:54 AM CDT) Only the most recent of 2 results within the time period is included. BNP 58 0 - 100 pg/mL [facility] PATHOLOGY AND GENOMIC MEDICINE Specimen Blood Performing Organization Address City/[facility]/Zipcode Phone Number [address] [place] [address] PATHOLOGY [facility] * Basic metabolic panel (05/15/2018 7:54 AM CDT) Only the most recent of 5 results within the time period is included. Sodium 143 135 - 148 mEq/L [facility] DEPARTMENT OF PATHOLOGY AND GENOMIC MEDICINE Potassium 4.8 3.5 - 5.0 mEq/L [facility] [[email or web address]] DEPARTMENT OF PATHOLOGY AND GENOMIC MEDICINE Chloride 102 98 - 112 mEq/L [facility] [[email or web address]] DEPARTMENT OF PATHOLOGY AND GENOMIC MEDICINE CO2 29 24 - 31 mEq/L [facility] [[email or web address]] DEPARTMENT OF PATHOLOGY AND GENOMIC MEDICINE Anion gap 12@ANIO 7 - 15 mEq/L [facility] [[email or web address]] DEPARTMENT OF PATHOLOGY AND GENOMIC MEDICINE BUN 16 8 - 23 mg/dL [facility] [[email or web address]] DEPARTMENT OF PATHOLOGY AND GENOMIC MEDICINE Creatinine 1.40 (H) 0.70 - 1.20 mg/dL [facility] [[email or web address]] DEPARTMENT OF PATHOLOGY AND GENOMIC MEDICINE Glucose 168 (H) 65 - 99 mg/dL [facility] [[email or web address]] DEPARTMENT OF PATHOLOGY AND GENOMIC MEDICINE Calcium 9.9 8.8 - 10.2 mg/dL [facility] [[email or web address]] DEPARTMENT OF PATHOLOGY AND GENOMIC MEDICINE Specimen Plasma specimen Performing Organization Address City/[facility] Phone Number [facility] [id number] [place] [address] [place] [address] PATHOLOGY AND GENOMIC MEDICINE * POC glucose (05/15/2018 5:50 AM CDT) Only the most recent of 15 results within the time period is included. Pathologist [facility] POC glucose 149 (H) 65 - 99 mg/dL [facility] [[email or web address]] Comment: DEPARTMENT OF Meter ID: [id number] PATHOLOGY AND Blood Bank Business Manager: Jose Duggan GENOMIC MEDICINE Specimen Performing Organization Address City/[facility] Phone Number [facility] [[email or web address]] DEPARTMENT [address] [place] [address] PATHOLOGY AND GENOMIC MEDICINE * Echocardiogram complete w contrast and 3D if needed (05/14/2018 1:50 PM CDT) Pathologist [facility] Velocity Ratio 0.78 m/s [facility] (V1/V2) [...] i VTI 1.24 cm2/m2 [facility] [place] MR peak grad 8.22 mmHg [facility] [...] LV EF,BP 65.10 % [facility] [place],d A2C 8.56 cm [facility] [place],d A4C 9.40 cm [facility] [place],s A2C 7.30 cm [facility] [place],s A4C 7.78 cm [facility] LV SV,A2C [...] MOD BP 40.04 ml/m2 [facility] [place] LV Vol Index s 61.50 ml/m2 [facility] bpmod [place] PV Vmn 21.46 m/s [facility] MV [...] dilated. No pericardial effusion Performing Organization Address City/[facility]/Zipcode Phone Number [facility] [address] [place] [address] * ECG 12 lead (05/14/2018 11:13 AM CDT) Ventricular 72 [facility] rate Atrial rate 72 [facility] DC interval 188 [facility] QRSD interval 144 [...] before 15-MAR-2018)-Abnormal ECG- Specimen Performing Organization Address [facility] Phone Number [place] [facility] [address] [place] [address] * D-dimer (05/13/2018 10:33 AM CDT) D-dimer 1.39 (H) 0.00 - 0.40 ug/mL [facility] [[email or web address]] Comment: FEU DEPARTMENT OF Units are ug/ml [...] and malignancies. Specimen Blood Performing Organization Address City/[facility]/Zipcode Phone Number [facility] [place] [place] [address] [place] [address] PATHOLOGY AND GENOMIC MEDICINE * Pv duplex venous lower extremity (05/12/2018 12:05 AM CDT) Specimen Narrative Performed At [facility] Normal venous duplex scan of the right leg. Deep venous thrombosis is present in the left femoral and popliteal veins. Performing Organization Address City/[facility]/Zipcode Phone Number [facility] [address] [place] [address] * Type and screen (05/11/2018 3:15 PM CDT) Pathologist Luly ABO grouping B [facility] [[email or web address]] DEPARTMENT OF PATHOLOGY AND GENOMIC MEDICINE Rh type POS [email or web address] DEPARTMENT OF PATHOLOGY AND GENOMIC MEDICINE Antibody screen NEG [facility] [[email or web address]] DEPARTMENT OF PATHOLOGY AND GENOMIC MEDICINE Specimen Blood Performing Organization Address City/[facility]/Zipcode Phone Number [facility] [[email or web address]] DEPARTMENT OF [address] [place] [address] [place] [address] PATHOLOGY AND GENOMIC MEDICINE * XR Tibia [...] fracture. IMPRESSION: No evidence of acute fracture. [id number] Procedure Note Interface, Radiology Results Incoming - [...] fracture. IMPRESSION: No evidence of acute fracture. [place]-[id number] Performing Organization Address City/[facility]/Zipcode Phone Number [facility] [address] [place] [address] * Manual differential (05/11/2018 2:15 PM CDT) Pathologist Luly Manual PERFORMED [facility] [[email or web address]] differential DEPARTMENT OF PATHOLOGY AND GENOMIC MEDICINE Neutrophils 77.0 (H) 39.0 - 69.0 % [facility] [[email or web address]] DEPARTMENT OF PATHOLOGY AND GENOMIC MEDICINE Lymphocytes 15.0 (L) 25.0 - 45.0 % [facility] [[email or web address]] DEPARTMENT OF PATHOLOGY AND GENOMIC MEDICINE Monocytes 5.0 0.0 - 10.0 % [facility] [[email or web address]] DEPARTMENT OF PATHOLOGY AND GENOMIC MEDICINE Eosinophils 2.0 0.0 - 5.0 % [facility] [[email or web address]] DEPARTMENT OF PATHOLOGY AND GENOMIC MEDICINE Basophils 1.0 0.0 - 1.0 % [facility] [[email or web address]] DEPARTMENT OF PATHOLOGY AND GENOMIC MEDICINE Metamyelocytes 0 % [facility] [[email or web address]] DEPARTMENT OF PATHOLOGY AND GENOMIC MEDICINE Promyelocytes 0 % [email or web address]] DEPARTMENT OF PATHOLOGY AND GENOMIC MEDICINE Platelet slide Saray adequate [facility] [[email or web address]] review DEPARTMENT OF PATHOLOGY AND GENOMIC MEDICINE Specimen Performing Organization Address [facility] Phone Number [address] [place] [address] PATHOLOGY AND GENOMIC MEDICINE * Partial thromboplastin time, activated (05/11/2018 2:15 PM CDT) Pathologist [facility] PTT 20.7 (L) 23.0 - 36.0 sec [facility] [[email or web address]] Comment: DEPARTMENT OF PTT therapeutic range for PATHOLOGY AND unfractionated heparin is GENOMIC 61.0-112.0 seconds which MEDICINE corresponds to Anti-Xa 0.3-0.7 U/ml. Specimen Blood Performing Organization Address [facility] Phone Number [address] [place] [address] PATHOLOGY AND [facility] * Prothrombin time with INR (05/11/2018 2:15 PM CDT) Pathologist [facility] Prothrombin 13.3 12.0 - 15.0 sec [facility] [[email or web address]] time DEPARTMENT OF PATHOLOGY AND GENOMIC MEDICINE INR 1.0 [facility] [[email or web address]] Comment: DEPARTMENT OF The International Normalized PATHOLOGY AND Ratio (INR) is a therapeutic GENOMIC monitoring tool for patients MEDICINE who are stable on oral anticoagulant therapy. An INR of 2.0-3.0 is suggested for deep vein thrombosis/pulmonary embolism. Specimen Blood Performing Organization Address [facility] Phone Number [address] [place] [address] PATHOLOGY AND [facility] MEDICINE * LACERATION REPAIR (05/11/2018 2:01 PM CDT) Narrative Performed At Osvaldo Wu PA-C 05/12/20189:30 AM Laceration Repair Performed by: OSVALDO WU Authorized by: SERGEY VENTURA Consent: Consent obtained:Verbal [...] of procedure:Tolerated well, no immediate complications after 04/18/2018 Insurance Type Payer Benefit Subscriber ID Effective Phone Address Plan / Dates Group Medicare MEDICARE MEDICARE xxxxxxxxxx 2003- BUSY, PART A AND Present [place] B xxxxxxxxx 2012- FOR LIFE Present Advance Directives For more information, please contact: [phone] Patient Rn Team Leader Explanation Type Date Recorded Advance Directives, 05/11/2018 2:28 PM Living Will and Medical Power of Grocery Carrier
[2019-04-19] MEDS ORDERED: ASPIRIN 81 MG CHEW TAB PO ONE (17:15)
--- NOTE | 2019-04-19 17:43 | NUR ---
straight cath inserted for ua collection via aseptic technique per md orders; urine output approx 250 cc; urine collected and sent to lab
[2019-04-19 17:47] LABS: BASOPHILS % 0.4 % (0.0-1.0); EOSINOPHILS # (AUTO) 0.3 (0.0-0.4); EOSINOPHILS % 3.4 % (0.0-6.0); HEMATOCRIT 37.3 % (38.2-49.6); HEMOGLOBIN 11.3 g/dL (14.0-18.0); LYMPHOCYTES # (AUTO) 1.5 (1.0-3.2); LYMPHOCYTES % 17.2 % (18.0-39.1); MEAN CORPUSCULAR HEMOGLOBIN 24.9 pg (28-32); MEAN CORPUSCULAR HGB CONC 30.3 g/dL (31-35); MEAN CORPUSCULAR VOLUME 82.2 fL (81-99); MONOCYTES # (AUTO) 0.9 (0.2-0.8); MONOCYTES % 9.6 % (4.4-11.3); NEUTROPHILS # (AUTO) 6.1 (2.1-6.9); PLATELET COUNT 229 x10e3/uL (140-360); RED BLOOD COUNT 4.54 x10e6/uL (4.3-5.7); RED CELL DISTRIBUTION WIDTH 18.6 % (11.7-14.4)
[2019-04-19 18:01] LABS: INR 0.92; PROTHROMBIN TIME 12.9 seconds (11.9-14.5)
[2019-04-19 18:11] LABS: ALBUMIN 3.5 g/dL (3.5-5.0); ANION GAP 18.1 mmol/L (8-16); CALCIUM 9.5 mg/dL (8.4-10.2); CREATININE, SERUM 2.56 mg/dL (0.72-1.25); POTASSIUM 4.1 mmol/L (3.5-5.1)
[2019-04-19 18:17] LABS: CREATINE KINASE MB 3.1 ng/mL (0-5.0)
--- NOTE | 2019-04-19 18:27 | NUR ---
NOTIFIED DR GABRIEL GLUCOSE 61. VERBAL ORDER RECEIVED: D50 IV ONCE
[2019-04-19 18:29] LABS: BILIRUBIN,URINE SMALL (NEGATIVE); CLARITY,URINE SL CLOUDY (CLEAR); COLOR,URINE YELLOW (YELLOW); KETONES,URINE NEGATIVE (NEGATIVE); LEUKOCYTE ESTERASE ,URINE NEGATIVE (NEGATIVE); NITRITE,URINE NEGATIVE (NEGATIVE); PROTEIN,URINE DIPSTICK NEGATIVE (NEGATIVE); URINE UROBILINOGEN 0.2 mg/dL (0.2 - 1)
[2019-04-19] MEDS ORDERED: DEXTROSE 50% SYRINGE 50 ML IV ONE ×2 (18:32→18:45)
[2019-04-19 18:40] LABS: AMORPHOUS SEDIMENT,URINE FEW (FEW); BACTERIA,URINE RARE /HPF; EPITHELIAL CELLS,URINE RARE /LPF; RBC,URINE 0-5 /HPF (0-5); WBC,URINE (MAN) 0-5 /HPF (0-5)
--- NOTE | 2019-04-19 18:41 | Diagnostic Imaging Report ---
A single frontal view of the chest. HISTORY: Dizzy, shaking, falls, back pain COMPARISON: Chest radiograph May 17, 2018. DISCUSSION: Portable technique, limits sensitivity of the exam. Soft tissue attenuation markedly limits sensitivity of the exam. Overlying monitoring leads. Tubes/Lines: Left-sided implanted cardiac device. Lungs and pleura: Low lung volumes result in bibasilar vascular crowding, accentuation of the pulmonary interstitial markings, central pulmonary vasculature, and the cardiac silhouette. Allowing for these limitations, the findings are as follows: Mild blunting of the left costophrenic angle with adjacent minimal atelectasis. Heart and mediastinum: The cardiomediastinal silhouette appear(s) unremarkable. Bones and soft tissues: Stable appearing marked narrowing of the left acromiohumeral interval with remodeling of the undersurface of the acromion. IMPRESSION: 1. Trace left pleural effusion and adjacent atelectasis. 2. Findings compatible with a chronic full-thickness left rotator cuff tear. 3. Low lung volumes. Signed by: Dr. Wallace Kenny D.O., M.M.M. on 04/19/2019 6:37 PM
--- NOTE | 2019-04-19 18:43 | Diagnostic Imaging Report ---
Lumbar Spine Radiographs: 6 views including oblique views HISTORY: Dizzy, shaking, falls, back pain COMPARISON: None available. DISCUSSION: The osseous structures are partially obscured by stool and bowel gas. Five non-rib bearing lumbar vertebral bodies. The alignment of the spine is within normal limits. No displaced fracture or compression deformity is identified. Disc Spaces: Prominent diffuse bulky anterior flowing nonmarginal syndesmophytes. Superimposed moderate degenerative changes at L5-S1. Facets: Multilevel hypertrophic facet arthrosis, most notably severe at L5-S1. Other: Diffuse scattered atherosclerotic vascular calcifications. Moderate left and mild right hip degenerative changes. IMPRESSION: 1. No acute radiographic abnormality. 2. Multifocal degenerative changes, most notably severe hypertrophic facet arthrosis at L5-S1. 3. DISH (Diffuse idiopathic skeletal hyperostosis). Signed by: Dr. Wallace Kenny D.O., M.M.M. on 04/19/2019 6:40 PM
--- NOTE | 2019-04-19 18:56 | Diagnostic Imaging Report ---
History: Dizziness, fall, back pain Comparison studies:CT head 03/15/2019 Technique: Axial images were obtained from the brain and cervical spine. Coronal and sagittal images reconstructed from the axial data. Intravenous contrast: None Dose modulation, iterative reconstruction, and/or weight based adjustment of the mA/kV was utilized to reduce the radiation dose to as low as reasonably achievable. Findings: Scalp/skull: Right frontal small scalp hematoma. No fractures, blastic or lytic lesions. Brain sulci: Moderately prominent at the frontoparietal convexities. Ventricles: Normal in size and configuration. No hydrocephalus. Extra-axial spaces: No masses. No fluid collections. Parenchyma: Scattered small hypodensities of the supratentorial white matter, nonspecific and most commonly seen with mild chronic microvascular ischemic changes. No masses, hemorrhage, acute or chronic cortical vascular insults. Sellar/suprasellar region: No abnormalities. Craniocervical junction: Patent foramen magnum. No Chiari one malformation. Atherosclerotic calcifications of the carotid siphons and vertebral arteries. Bilateral cataract surgery changes. Impression: Head CT: 1. No acute intracranial abnormality. 2. Mild chronic microvascular ischemic changes of the white matter. 3. Moderate volume loss more significant at the frontoparietal convexities. Signed by: DR Harsha Diamond M.D. on 04/19/2019 6:53 PM
--- OUTSIDE RECORDS SUMMARY | 2019-04-19 19:01 | XMS REPORT | Clinical Summary ---
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 IMPRESSION: Cardiomegaly with mild basilar atelectasis [id number] Procedure Note Hm Interface, Radiology Results Incoming [...] noted. IMPRESSION: Cardiomegaly with mild basilar atelectasis [id number] Performing Organization Address City/[facility]/Zipcode Phone Number [place] [place] [address] * Smear review (05/15/2018 7:54 AM CDT) Only the most recent of 3 results within the time period is included. Pathologist [facility] Platelet slide Saray adequate [facility] review DEPARTMENT OF PATHOLOGY AND GENOMIC MEDICINE Anisocytosis ModerateComment: Moderate [facility] Hypochromia DEPARTMENT OF PATHOLOGY AND GENOMIC MEDICINE Tear drop cells Occasional [facility] DEPARTMENT OF PATHOLOGY AND GENOMIC MEDICINE Schistocytes Rare [facility] DEPARTMENT OF PATHOLOGY AND GENOMIC MEDICINE Ovalocytes Occasional [facility] DEPARTMENT OF PATHOLOGY AND GENOMIC MEDICINE Specimen Performing Organization Address [facility] Phone Number [address] [place] [id number] PATHOLOGY AND GENOMIC [facility] * Estimated GFR (05/15/2018 7:54 AM CDT) Only the most recent of 5 results within the time period is included. Pathologist [facility] Estimated GFR 47 (A) mL/min/1.73 m2 [facility] Comment: DEPARTMENT OF CatergoryUnitsInte PATHOLOGY AND rpretation GENOMIC G1 MEDICINE >=90 Normal or high G2 60-89Mildly decreased [id number] Mildly to moderately decreased Y4m36-19 Moderately to severely decreased G4 15-29Severely decreased G5 <15Kidney failure The eGFR was calculated using the Chronic Kidney Disease Epidemiology Collaboration (CKD-EPI) equation. Interpretation is based on recommendations of the National Kidney Foundation-Kidney Disease Outcomes Quality Initiative (NKF-KDOQI) published in 2014. Specimen Plasma specimen Performing Organization Address [facility] Phone Number [facility] [place]MENT [place] [id number] [place] [address] [place] [address] PATHOLOGY AND GENOMIC [facility] * CBC with platelet and differential (05/15/2018 7:54 AM CDT) Only the most recent of 4 results within the time period is included. Pathologist [facility] WBC 7.71 4.50 - 11.00 k/uL [facility] DEPARTMENT OF PATHOLOGY AND GENOMIC MEDICINE RBC 3.67 (L) 4.40 - 6.00 m/uL [facility] DEPARTMENT OF PATHOLOGY AND GENOMIC MEDICINE HGB 8.2 (L) 14.0 - 18.0 g/dL [facility] DEPARTMENT OF PATHOLOGY AND GENOMIC MEDICINE HCT 28.5 (L) 41.0 - 51.0 % [facility] DEPARTMENT OF PATHOLOGY AND GENOMIC MEDICINE MCV 77.7 (L) 82.0 - 100.0 fL [facility] DEPARTMENT OF PATHOLOGY AND GENOMIC MEDICINE MCH 22.3 (L) 27.0 - 34.0 pg [facility] DEPARTMENT OF PATHOLOGY AND GENOMIC MEDICINE MCHC 28.8 (L) 31.0 - 37.0 g/dL [facility] DEPARTMENT OF PATHOLOGY AND GENOMIC MEDICINE RDW - SD 51.3 37.0 - 55.0 fL [facility] DEPARTMENT OF PATHOLOGY AND GENOMIC MEDICINE MPV 9.5 8.8 - 13.[address] [facility] OF PATHOLOGY AND GENOMIC MEDICINE Platelet count 230 150 - 400 k/uL [facility] DEPARTMENT OF PATHOLOGY AND GENOMIC MEDICINE Nucleated RBC 0.00 /100 WBC [facility] DEPARTMENT OF PATHOLOGY AND GENOMIC MEDICINE Neutrophils 70.9 (H) 39.0 - 69.0 % [facility] DEPARTMENT OF PATHOLOGY AND GENOMIC MEDICINE Lymphocytes 14.9 (L) 25.0 - 45.0 % [facility] DEPARTMENT OF PATHOLOGY AND GENOMIC MEDICINE Monocytes 9.1 0.0 - 10.0 % [facility] DEPARTMENT OF PATHOLOGY AND GENOMIC MEDICINE Eosinophils 3.8 0.0 - 5.0 % [facility] DEPARTMENT PATHOLOGY AND GENOMIC MEDICINE Basophils 0.4 0.0 - 1.0 % [facility] OF PATHOLOGY AND GENOMIC MEDICINE Specimen Blood Performing Organization Address City/[facility] Phone Number [address] [place] [address] PATHOLOGY [facility] * B natriuretic peptide (05/15/2018 7:54 AM CDT) Only the most recent of 2 results within the time period is included. BNP 58 0 - 100 pg/mL [facility] PATHOLOGY AND GENOMIC MEDICINE Specimen Blood Performing Organization Address City/[facility]/Zipcode Phone Number [address] [place] [address] PATHOLOGY [facility] * Basic metabolic panel (05/15/2018 7:54 AM CDT) Only the most recent of 5 results within the time period is included. Sodium 143 135 - 148 mEq/L [facility] DEPARTMENT OF PATHOLOGY AND GENOMIC MEDICINE Potassium 4.8 3.5 - 5.0 mEq/L [facility] DEPARTMENT OF PATHOLOGY AND GENOMIC MEDICINE Chloride 102 98 - 112 mEq/L [facility] DEPARTMENT OF PATHOLOGY AND GENOMIC MEDICINE CO2 29 24 - 31 mEq/L [facility] DEPARTMENT OF PATHOLOGY AND GENOMIC MEDICINE Anion gap 12@ANIO 7 - 15 mEq/L [facility] DEPARTMENT OF PATHOLOGY AND GENOMIC MEDICINE BUN 16 8 - 23 mg/dL [facility] DEPARTMENT OF PATHOLOGY AND GENOMIC MEDICINE Creatinine 1.40 (H) 0.70 - 1.20 mg/dL [facility] DEPARTMENT OF PATHOLOGY AND GENOMIC MEDICINE Glucose 168 (H) 65 - 99 mg/dL [facility] DEPARTMENT OF PATHOLOGY AND GENOMIC MEDICINE Calcium 9.9 8.8 - 10.2 mg/dL [facility] DEPARTMENT OF PATHOLOGY AND GENOMIC MEDICINE Specimen Plasma specimen Performing Organization Address City/[facility] Phone Number [facility] [phone] [place] [address] [place] [address] PATHOLOGY AND GENOMIC MEDICINE * POC glucose (05/15/2018 5:50 AM CDT) Only the most recent of 15 results within the time period is included. Pathologist [facility] POC glucose 149 (H) 65 - 99 mg/dL [facility] Comment: DEPARTMENT OF Meter ID: [id number] PATHOLOGY AND Medical Language Specialist: Jose Duggan GENOMIC MEDICINE Specimen Performing Organization Address City/[facility] Phone Number [facility] DEPARTMENT [address] [place] [address] PATHOLOGY AND GENOMIC MEDICINE * Echocardiogram complete w contrast and 3D if needed (05/14/2018 1:50 PM CDT) Pathologist [facility] Velocity Ratio 0.78 m/s [facility] (V1/V2) [...] i VTI 1.24 cm2/m2 [facility] [place] MR peak grad 8.22 mmHg [facility] [...] LV EF,BP 65.10 % [facility] [place],d A2C 8.56 cm [facility] [place],d A4C 9.40 cm [facility] [place],s A2C 7.30 cm [facility] [place],s A4C 7.78 cm [facility] LV SV,A2C [...] MOD BP 40.04 ml/m2 [facility] [place] LV Vol Index s 61.50 ml/m2 [facility] bpmod [place] PV Vmn 21.46 m/s [facility] MV [...] dilated. No pericardial effusion Performing Organization Address City/[facility]/Zipcode Phone Number [facility] [address] [place] [address] * ECG 12 lead (05/14/2018 11:13 AM CDT) Ventricular 72 [facility] MUSE rate Atrial rate 72 [facility] MUSE [place] interval 188 [facility] MUSE QRSD interval 144 [...] before 15-MAR-2018)-Abnormal ECG- Specimen Performing Organization Address [facility] Phone Number [facility] MUSE [address] [place] [address] * D-dimer (05/13/2018 10:33 AM CDT) D-dimer 1.39 (H) 0.00 - 0.40 ug/mL [facility] Comment: FEU DEPARTMENT OF Units are ug/ml [...] and malignancies. Specimen Blood Performing Organization Address City/[facility]/Zipcode Phone Number [facility] [place] [address] [place] [address] PATHOLOGY AND GENOMIC MEDICINE * Pv duplex venous lower extremity (05/12/2018 12:05 AM CDT) Specimen Narrative Performed At [facility] Normal venous duplex scan of the right leg. Deep venous thrombosis is present in the left femoral and popliteal veins. Performing Organization Address City/[facility]/Zipcode Phone Number [facility] [address] [place] [address] * Type and screen (05/11/2018 3:15 PM CDT) Pathologist Luly ABO grouping B [facility] DEPARTMENT OF PATHOLOGY AND GENOMIC MEDICINE Rh type POS [facility] DEPARTMENT OF PATHOLOGY AND GENOMIC MEDICINE Antibody screen NEG [facility] DEPARTMENT OF PATHOLOGY AND GENOMIC MEDICINE Specimen Blood Performing Organization Address City/[facility]/Zipcode Phone Number [facility] DEPARTMENT OF [address] [place] [address] [place] [address] PATHOLOGY AND GENOMIC MEDICINE * XR Tibia [...] fracture. IMPRESSION: No evidence of acute fracture. [facility]-[id number] Procedure Note Interface, Radiology Results Incoming - [...] fracture. IMPRESSION: No evidence of acute fracture. [facility]-[id number] Performing Organization Address City/[facility]/Zipcode Phone Number [facility] [address] [place] [address] * Manual differential (05/11/2018 2:15 PM CDT) Pathologist Luly Manual PERFORMED [facility] differential DEPARTMENT OF PATHOLOGY AND GENOMIC MEDICINE Neutrophils 77.0 (H) 39.0 - 69.0 % [facility] DEPARTMENT OF PATHOLOGY AND GENOMIC MEDICINE Lymphocytes 15.0 (L) 25.0 - 45.0 % [facility] DEPARTMENT OF PATHOLOGY AND GENOMIC MEDICINE Monocytes 5.0 0.0 - 10.0 % [facility] DEPARTMENT OF PATHOLOGY AND GENOMIC MEDICINE Eosinophils 2.0 0.0 - 5.0 % [facility] DEPARTMENT OF PATHOLOGY AND GENOMIC MEDICINE Basophils 1.0 0.0 - 1.0 % [facility] DEPARTMENT OF PATHOLOGY AND GENOMIC MEDICINE Metamyelocytes 0 % [facility] DEPARTMENT OF PATHOLOGY AND GENOMIC MEDICINE Promyelocytes 0 % [facility] DEPARTMENT OF PATHOLOGY AND GENOMIC MEDICINE Platelet slide Saray adequate [facility] review DEPARTMENT OF PATHOLOGY AND GENOMIC MEDICINE Specimen Performing Organization Address [facility] Phone Number [address] [place] [address] PATHOLOGY AND GENOMIC MEDICINE * Partial thromboplastin time, activated (05/11/2018 2:15 PM CDT) Pathologist [facility] PTT 20.7 (L) 23.0 - 36.0 sec [facility] Comment: DEPARTMENT OF PTT therapeutic range for PATHOLOGY AND unfractionated heparin is GENOMIC 61.0-112.0 seconds which MEDICINE corresponds to Anti-Xa 0.3-0.7 U/ml. Specimen Blood Performing Organization Address [facility] Phone Number [address] [place] [address] PATHOLOGY AND [facility] * Prothrombin time with INR (05/11/2018 2:15 PM CDT) Pathologist [facility] Prothrombin 13.3 12.0 - 15.0 sec [facility] time DEPARTMENT OF PATHOLOGY AND GENOMIC MEDICINE INR 1.0 [facility] Comment: DEPARTMENT OF The International Normalized PATHOLOGY AND Ratio (INR) is a therapeutic GENOMIC monitoring tool for patients MEDICINE who are stable on oral anticoagulant therapy. An INR of 2.0-3.0 is suggested for deep vein thrombosis/pulmonary embolism. 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
--- OUTSIDE RECORDS SUMMARY | 2019-04-19 19:02 | XMS REPORT | Continuity of Care Document ---
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 Name Role Phone Master Equation Information Exchange Unavailable Unavailable Problems Problem Status Onset Date Classification Date Reported Comments Source CHF Active Problem 05/24/2018 [facility] CKD Active Problem 05/24/2018 [facility] COPD exacerbation Active Problem 05/24/2018 [facility] Cellulitis Active Problem 05/24/2018 [facility] Cellulitis of leg Active Problem 05/24/2018 [facility] Chest pain Active Problem 05/24/2018 [facility] Diabetes Active Problem 05/24/2018 [facility] Gangrene Active Problem 05/24/2018 [facility] Hypoglycemia Active Problem 05/24/2018 [facility] Hypotension Active Problem 05/24/2018 [facility] Obesity Active Problem 05/24/2018 [facility] Renal insufficiency Active Problem 05/24/2018 [facility] Syncope Active Problem 05/24/2018 [facility] UTI Active Problem 05/24/2018 [facility] Weakness Active Problem 05/24/2018 [facility] Medications Medication Details Route Status Patient Instructions Ordering Provider Order Date Source Aspirin (Aspir 81) 81 Mg Tablet.dr, 81 Mg Oral Daily Active 05/16/2018 [facility] Clopidogrel Bisulfate (Clopidogrel) 75 Mg Tablet, 75 Mg Oral Daily Active 05/16/2018 [facility] Docusate Sodium 100 Mg Capsule, 100 Mg Oral Daily Active 05/16/2018 [facility] Furosemide (Lasix) 20 Mg Tablet, 60 Mg Oral Daily Active 05/16/2018 [facility] Gabapentin 300 Mg Capsule, 300 Mg Oral Daily Active 05/16/2018 [facility] Nph, Human Insulin Isophane (Novolin N) 100 Unit/1 Ml Vial, 60 Units Sub-Q Today At 9:00PM Active 05/16/2018 [facility] Valsartan (Diovan) 80 Mg Tab, 80 Mg Oral Daily Active 05/16/2018 [facility] Oseltamivir Phosphate (Tamiflu) 75 Mg Cap, 75 Mg Oral Twice A Day Active 02/01/2018 [facility] Prednisone 20 Mg Tab, 20 Mg Oral Twice A Day Active 02/01/2018 [facility] Levofloxacin (Levaquin) 500 Mg Tablet, 500 Mg Oral Daily Active 08/14/2017 [facility] Paricalcitol (Zemplar) 1 Mcg Capsule, Mon.isaias. Active 08/14/2017 [facility] Salmeterol Xinafoate/Fluticasone (Advair 500/50*) 1 Ea Aerp, 1 Inh Inhalation Every 12 Hours Active 08/14/2017 [facility] Docusate Sodium 100 Mg Capsule, 100 Mg Oral Active 01/01/2017 [facility] Gabapentin 300 Mg Capsule, 300 Mg Oral Daily Active 01/01/2017 [facility] Allopurinol 300 Mg Tablet, 300 Mg Oral Daily Active 10/18/2016 [facility] Nifedipine (Nifedipine Er) 30 Mg Tab.er.24, Active 10/18/2016 [facility] Acetaminophen With Codeine (Tylenol With Codeine #3 Tablet) 1 Each Tablet Every 6 Hours as needed for Pain Active [facility] Albuterol Sulfate (Proair Hfa Inhaler*) 8.5 Gm Inh Twice A Day Active 1 PUFF [facility] Allopurinol 100 Mg Tablet Daily Active [facility] Cetirizine Hcl 10 Mg Tablet Daily Active [facility] Diclofenac Sodium (Solaraze) 100 Gm Gel..gram. Every 6 Hours Active [facility] Eliquis 5 Twice A Day Active [facility] Esomeprazole Magnesium (Nexium) 40 Mg Capsule. Daily Active PROTONIX THERAPEUTIC SUBSTITUTE FOR NEXIUM PER [facility] Ferrous Sulfate 325 Mg Tablet Daily Active [facility] Gabapentin 300 Mg Capsule Three Times A Day Active [facility] Levothyroxine Sodium 50 Mcg Tablet Daily Active [facility] Liothyronine Sodium 5 Mcg Tablet Daily Active [facility] Melatonin 3 Mg Tablet Bedtime as needed for Insomnia Active [facility] Nifedipine (Nifedipine Er) 60 Mg Tab.er.24 Daily [facility] Nph, Human Insulin Isophane (Novolin N) 100 Unit/1 Ml Vial Daily [facility] Omeprazole 40 Mg Capsule. Daily Active [facility] Sertraline Hcl 100 Mg Tablet Bedtime Active [facility] Simvastatin 40 Mg Tablet Today At 9:00PM [facility] Vit D-2 Weekly [facility] Allergies, Adverse Reactions, Alerts Substance Category Reaction Severity Reaction type Status Date Reported Comments Source penicillin Unknown Allergy to Substance Active 05/16/2018 [facility] Immunizations No Data Provided for This Section Results Order Name Results Value Reference Range Date Interpretation Comments Source Capillary blood glucose measurement by glucometer (mass/volume) Capillary blood glucose measurement by glucometer (mass/volume) 99 70 - 120 05/23/2018 [facility] Automated blood basophil count (count/volume) Automated blood basophil count (count/volume) 0.1 0.0 - 0.1 05/23/2018 [facility] Automated blood basophil count as percentage of total leukocytes Automated blood basophil count as percentage of total leukocytes 0.9 0.0 - 1.0 05/23/2018 [facility] Automated blood eosinophil count Automated blood eosinophil count 0.3 0.0 - 0.4 05/23/2018 [facility] Automated blood eosinophil count as percentage of total leukocytes Automated blood eosinophil count as percentage of total leukocytes 4.6 0.0 - 6.0 05/23/2018 [facility] Automated blood hematocrit (volume fraction) Automated blood hematocrit (volume fraction) 32.6 38.2 - 49.6 05/23/2018 [facility] Automated blood lymphocyte count as percentage ot total leukocytes Automated blood lymphocyte count as percentage ot total leukocytes 14.3 18.0 - 39.1 05/23/2018 [facility] Automated blood monocyte count as percentage of total leukocytes Automated blood monocyte count as percentage of total leukocytes 9.1 4.4 - 11.3 05/23/2018 [facility] Automated blood neutrophil count Automated blood neutrophil count 4.7 2.1 - 6.9 05/23/2018 [facility] Automated blood platelet count (count/volume) Automated blood platelet count (count/volume) 215 140 - 360 05/23/2018 [facility] Automated blood segmented neutrophil count as percentage of total leukocytes Automated blood segmented neutrophil count as percentage of total leukocytes 70.7 38.7 - 80.0 05/23/2018 [facility] Automated erythrocyte mean corpuscular hemoglobin (mass per erythrocyte) Automated erythrocyte mean corpuscular hemoglobin (mass per erythrocyte) 24.1 28 - 32 05/23/2018 [facility] Automated erythrocyte mean corpuscular hemoglobin concentration measurement (mass/volume) Automated erythrocyte mean corpuscular hemoglobin concentration measurement (mass/volume) 29.4 31 - 35 05/23/2018 [facility] Automated erythrocyte mean corpuscular volume Automated erythrocyte mean corpuscular volume 81.7 81 - 99 05/23/2018 [facility] Blood erythrocytes automated count (number/volume) Blood erythrocytes automated count (number/volume) 3.99 4.3 - 5.7 05/23/2018 [facility] Blood hemoglobin measurement (moles/volume) Blood hemoglobin measurement (moles/volume) 9.6 14.0 - 18.0 05/23/2018 [facility] Blood leukocytes automated count (number/volume) Blood leukocytes automated count (number/volume) 6.69 4.8 - 10.8 05/23/2018 [facility] Blood lymphocytes count (number/volume) Blood lymphocytes count (number/volume) 1.0 1.0 - 3.2 05/23/2018 [facility] Blood monocytes automated count (number/volume) Blood monocytes automated count (number/volume) 0.6 0.2 - 0.8 05/23/2018 [facility] Red Cell Distribution Width 21.7 11.7 - 14.4 05/23/2018 [facility] IM GRANULOCYTES % 0.4 0.0 - 1.0 05/23/2018 [facility] Absolute Immature Granulocyte (auto 0.03 0 - 0.1 05/23/2018 [facility] Estimated glomerular filtration rate (GFR) determination Estimated glomerular filtration rate (GFR) determination 52 60 05/22/2018 [facility] Glucose measurement Glucose measurement 210 74 - 118 05/22/2018 [facility] Plasma globulin measurement (mass/volume) Plasma globulin measurement (mass/volume) 2.9 2.3 - 3.5 05/22/2018 [facility] Serum or plasma alanine aminotransferase measurement (enzymatic activity/volume) Serum or plasma alanine aminotransferase measurement (enzymatic activity/volume) 14 0 - 55 05/22/2018 [facility] Serum or plasma albumin measurement (mass/volume) Serum or plasma albumin measurement (mass/volume) 3.0 3.5 - 5.0 05/22/2018 [facility] Serum or plasma albumin/globulin mass ratio Serum or plasma albumin/globulin mass ratio 1.0 0.8 - 2.0 05/22/2018 [facility] Serum or plasma alkaline phosphatase measurement (enzymatic activity/volume) Serum or plasma alkaline phosphatase measurement (enzymatic activity/volume) 141 40 - 150 05/22/2018 [facility] Serum or plasma anion gap Serum or plasma anion gap 14.2 8 - 16 05/22/2018 [facility] Serum or plasma calcium measurement (mass/volume) Serum or plasma calcium measurement (mass/volume) 9.3 8.4 - 10.2 05/22/2018 [facility] Serum or plasma carbon dioxide, total measurement (moles/volume) Serum or plasma carbon dioxide, total measurement (moles/volume) 24 22 - 29 05/22/2018 [facility] Serum or plasma chloride measurement (moles/volume) Serum or plasma chloride measurement (moles/volume) 106 98 - 107 05/22/2018 [facility] Serum or plasma creatinine measurement (mass/volume) Serum or plasma creatinine measurement (mass/volume) 1.33 0.72 - 1.25 05/22/2018 [facility] Serum or plasma potassium measurement (moles/volume) Serum or plasma potassium measurement (moles/volume) 4.2 3.5 - 5.1 05/22/2018 [facility] Serum or plasma protein measurement (mass/volume) Serum or plasma protein measurement (mass/volume) 5.9 6.5 - 8.1 05/22/2018 [facility] Serum or plasma sodium measurement (moles/volume) Serum or plasma sodium measurement (moles/volume) 140 136 - 145 05/22/2018 [facility] Serum or plasma total bilirubin measurement (mass/volume) Serum or plasma total bilirubin measurement (mass/volume) 0.3 0.2 - 1.2 05/22/2018 [facility] Serum or plasma urea nitrogen measurement (mass/volume) Serum or plasma urea nitrogen measurement (mass/volume) 14 7 - 26 05/22/2018 [facility] Serum or plasma urea nitrogen/creatinine mass ratio Serum or plasma urea nitrogen/creatinine mass ratio 11 6 - 25 05/22/2018 [facility] Aspartate Amino Transf (AST/SGOT) 16 5 - 34 05/22/2018 [facility] Stool gastrointestinal hemoglobin detection Stool gastrointestinal hemoglobin detection NEGATIVE NEGATIVE 05/21/2018 [facility] Serum or plasma trough vancomycin level at trough (mass/volume) Serum or plasma trough vancomycin level at trough (mass/volume) 10.9 5.0 - 10.0 05/21/2018 [facility] Blood anisocytosis detection by light microscopy Blood anisocytosis detection by light microscopy SLIGHT 05/20/2018 [facility] Blood platelets count by estimate (number/volume) Blood platelets count by estimate (number/volume) ADEQUATE 05/20/2018 [facility] Blood poikilocytosis detection by light microscopy Blood poikilocytosis detection by light microscopy SLIGHT 05/20/2018 [facility] Manual blood eosinophil count as percentage of total leukocytes Manual blood eosinophil count as percentage of total leukocytes 5 0 - 7 05/20/2018 [facility] Manual blood lymphocytes/100 leukocytes Manual blood lymphocytes/100 leukocytes 16 19 - 48 05/20/2018 [facility] Manual blood monocytes/100 leukocytes Manual blood monocytes/100 leukocytes 6 3.4 - 9.0 05/20/2018 [facility] Manual blood neutrophils/100 leukocytes Manual blood neutrophils/100 leukocytes 73 40 - 74 05/20/2018 [facility] Platelet morphology Platelet morphology NORMAL 05/20/2018 [facility] RBC morphology RBC morphology NORMAL 05/20/2018 [facility] Differential Total Cells Counted 100 05/20/2018 [facility] Blood culture Blood culture NO GROWTH AFTER 5 DAYS, FINAL REPORT 05/17/2018 [facility] Serum or plasma iron binding capacity measurement (mass/volume) Serum or plasma iron binding capacity measurement (mass/volume) 386 261 - 478 05/17/2018 [facility] Serum or plasma iron measurement (mass/volume) Serum or plasma iron measurement (mass/volume) 22 65 - 175 05/17/2018 [facility] Serum or plasma iron saturation measurement (mass fraction) Serum or plasma iron saturation measurement (mass fraction) 6 15 - 50 05/17/2018 [facility] Serum or plasma thyrotropin measurement by detection limit <=0.005 miu/l (units/volume) Serum or plasma thyrotropin measurement by detection limit <=0.005 miu/l (units/volume) 1.233 0.350 - 4.940 05/17/2018 [facility] Serum or plasma transferrin measurement (mass/volume) Serum or plasma transferrin measurement (mass/volume) 276 174 - 364 05/17/2018 [facility] Automated urine sediment leukocyte count by microscopy (number/high power field) Automated urine sediment leukocyte count by microscopy (number/high power field) <5 0 - 5 05/17/2018 [facility] Bacteria detection in urine sediment by light microscopy Bacteria detection in urine sediment by light microscopy NONE NONE 05/17/2018 [facility] Epithelial cells detection in urine sediment by light microscopy Epithelial cells detection in urine sediment by light microscopy FEW NONE 05/17/2018 [facility] Erythrocytes detection in urine sediment by light microscopy Erythrocytes detection in urine sediment by light microscopy NONE 0 - 5 05/17/2018 [facility] Specific gravity of Urine by Test strip Specific gravity of Urine by Test strip 1.005 1.010 - 1.025 05/17/2018 [facility] Urine clarity Urine clarity CLEAR CLEAR 05/17/2018 [facility] Urine color determination Urine color determination YELLOW YELLOW 05/17/2018 [facility] Urine erythrocytes detection Urine erythrocytes detection NEGATIVE NEGATIVE 05/17/2018 [facility] Urine glucose detection Urine glucose detection NEGATIVE NEGATIVE 05/17/2018 [facility] Urine ketones detection by automated test strip Urine ketones detection by automated test strip NEGATIVE NEGATIVE 05/17/2018 [facility] Urine leukocyte esterase detection by dipstick Urine leukocyte esterase detection by dipstick TRACE NEGATIVE 05/17/2018 [facility] Urine nitrite detection Urine nitrite detection NEGATIVE NEGATIVE 05/17/2018 [facility] Urine pH measurement by automated test strip Urine pH measurement by automated test strip 7 5 - 7 05/17/2018 [facility] Urine protein measurement by test strip (mass/volume) Urine protein measurement by test strip (mass/volume) NEGATIVE NEGATIVE 05/17/2018 [facility] Urine total bilirubin measurement (mass/volume) Urine total bilirubin measurement (mass/volume) NEGATIVE NEGATIVE 05/17/2018 [facility] Urine urobilinogen measurement by test strip (mass/volume) Urine urobilinogen measurement by test strip (mass/volume) 0.2 0.2 - 1 05/17/2018 [facility] Phosphorus measurement Phosphorus measurement 3.4 2.3 - 4.7 05/17/2018 [facility] Serum or plasma creatine kinase MB measurement (mass/volume) Serum or plasma creatine kinase MB measurement (mass/volume) 2.50 0 - 5.0 05/17/2018 [facility] Serum or plasma creatine kinase measurement (enzymatic activity/volume) Serum or plasma creatine kinase measurement (enzymatic activity/volume) 147 30 - 200 05/17/2018 [facility] Serum or plasma magnesium measurement (mass/volume) Serum or plasma magnesium measurement (mass/volume) 1.9 1.3 - 2.1 05/17/2018 [facility] Troponin I measurement by highly sensitive enzyme immunoassay Troponin I measurement by highly sensitive enzyme immunoassay 0.062 0 - 0.300 05/17/2018 [facility] Activated partial thromboplastin time (aPTT) in platelet poor plasma bycoagulation assay Activated partial thromboplastin time (aPTT) in platelet poor plasma bycoagulation assay 26.4 23.8 - 35.5 05/16/2018 [facility] INR in Platelet poor plasma by Coagulation assay INR in Platelet poor plasma by Coagulation assay 1.02 05/16/2018 [facility] Prothrombin time (PT) in platelet poor plasma by coagulation assay Prothrombin time (PT) in platelet poor plasma by coagulation assay 14.3 11.9 - 14.5 05/16/2018 [facility] B-Type Natriuretic Peptide 51.7 0 - 100 05/16/2018 [facility] Hemoglobin A1c Percent 7.6 4.0 - 7.0 01/31/2018 [facility] Hyaline casts detection in urine sediment by light microscopy Hyaline casts detection in urine sediment by light microscopy <15 0 - 1 01/30/2018 [facility] Random serum or plasma vancomycin measurement (mass/volume) Random serum or plasma vancomycin measurement (mass/volume) 4.5 11/17/2017 [facility] Serum or plasma cholesterol in HDL measurement (mass/volume) Serum or plasma cholesterol in HDL measurement (mass/volume) 49 40 - 60 11/10/2017 [facility] Serum or plasma cholesterol in LDL measurement (mass/volume) Serum or plasma cholesterol in LDL measurement (mass/volume) 67 60 - 130 11/10/2017 [facility] Serum or plasma cholesterol measurement (mass/volume) Serum or plasma cholesterol measurement (mass/volume) 139 0 - 199 11/10/2017 [facility] Serum or plasma total cholesterol/cholesterol in HDL mass ratio Serum or plasma total cholesterol/cholesterol in HDL mass ratio 2.8 3.9 - 4.7 11/10/2017 [facility] Serum or plasma triglyceride measurement (mass/volume) Serum or plasma triglyceride measurement (mass/volume) 115 0 - 149 11/10/2017 [facility] Mucus detection in urine sediment by light microscopy Mucus detection in urine sediment by light microscopy FEW RARE 11/09/2017 [facility] Serum or plasma lipase measurement (enzymatic activity/volume) Serum or plasma lipase measurement (enzymatic activity/volume) 41 8 - 78 11/09/2017 [facility] Arterial blood base excess by calculation Arterial blood base excess by calculation 2.0 -2 - 3 - 2 08/14/2017 [facility] Arterial blood bicarbonate measurement (moles/volume) Arterial blood bicarbonate measurement (moles/volume) 27 23 - 28 08/14/2017 [facility] Arterial blood oxygen saturation measurement Arterial blood oxygen saturation measurement 85.0 95 - 98 08/14/2017 [facility] Arterial blood pH measurement Arterial blood pH measurement 7.39 7.31 - 7.41 08/14/2017 [facility] Arterial Blood Partial Pressure CO2 45 41 - 51 08/14/2017 [facility] Arterial Blood Partial Pressure O2 50 80 - 105 08/14/2017 [facility] Influenza virus A and B antigen identification by immunofluorescence Influenza virus A and B antigen identification by immunofluorescence POSITIVE FLU A NEGATIVE 08/14/2017 [facility] Fibrin D-dimer DDU measurement in platelet poor plasma (mass/volume) Fibrin D-dimer DDU measurement in platelet poor plasma (mass/volume) 1.23 0.00 - 0.45 08/14/2017 [facility] Pathology Reports No Data Provided [...] Date DC Date Status Source Discharged Inpatient [id number] ELVER HAGER MD 08/16/2017 08/20/2017 [facility] Registered Clinic [id number] NASH AL MD 09/28/2017 [facility] Discharged Inpatient [id number] ELVER HAGER MD 10/19/2017 10/23/2017 [facility] Discharged Inpatient [id number] ELVER HAGER MD 11/09/2017 11/20/2017 [facility] Discharged Inpatient [id number] ELVER HAGER MD 01/30/2018 02/01/2018 [facility] Discharged Inpatient [id number] ELVER HAGER MD 05/19/2018 05/23/2018 [facility] Procedures Procedure Code Date Perfomer Comments Source Computed tomography of brain without radiopaque contrast [id number] 01/30/2018 [facility] Magnetic resonance imaging of brain without contrast [id number] 11/14/2017 [facility] X-ray of chest, two views [id number] 10/21/[address] [facility] MRI j[facility] of [facility] w/o dye [id number] 09/28/2017 [facility] Assessment and Plan No Data Provided for This Section Plan of Care Plan of Care Date Source Discharge Date 05/23/18 7:26pm Disposition HOME, SELF-CARE Instructions/Education Provided Cellulitis Prescriptions See Medication Section Referrals ELVER HAGER MD (Internal Medicine) Order Date: 1-2 Weeks Entered Date: 05/23/2018 6:17pm Address: [address] [place] [phone] 05/23/2018 [facility] Social History Social History Date [...] Start Date Stop Date Never Smoker 05/23/2018 [facility] Family History Value Date Source [...] of hypertension Not Recorded 10/18/2016 8:20pm 05/23/2018 [facility] Advance Directives Order Name Results Value Date Source Advance Directives Advance Directives Directive Response Recorded Date/Time Does the patient have an advance directive? No 05/17/18 1:01am If yes, is advance directive on file with [facility]? No 05/17/18 1:01am If not on file with [facility] will patient provide a copy? Yes 05/17/18 1:01am Do you have a Directive to Physician? No 05/16/18 3:50pm Do you have a Medical Power of Camera Machinist? No 05/16/18 3:50pm Do you have an [...] rights and responsibilities? Yes 05/16/18 3:50pm 05/23/2018 [facility] Functional Status No Data Provided for This Section
[2019-04-19 19:45] VITALS: BP 116/58
--- NOTE | 2019-04-19 19:45 | NUR ---
patient is a new admit that arrived via stretcher. patient has periodes of confusion. patient has been assisted into the bed. bed is in the lowest position and call farnsworth is within reach. will continue to monitor patient.
[2019-04-19 20:00] VITALS: BP 116/58
[2019-04-19] MEDS: SODIUM CHLORIDE 0.9% 1000ML 1,000 ML IV SCH (20:55)
--- NOTE | 2019-04-19 21:41 | NUR ---
patient is complaining of pain in the lower back 01/27. MD notified, received order for tramadol 50mg Q4 hours as needed for pain.
[2019-04-19] MEDS: TRAMADOL HCL 50 MG TAB PO PRN (22:16)
[2019-04-20] VITALS (8 sets, daily range): BP systolic 114–164; BP diastolic 56–88
[2019-04-20] MEDS ORDERED: NOVOLIN N100 UNIT/1 SC (03:39)
[2019-04-20] MEDS ORDERED: DIOVAN80 MG PO (03:39)
[2019-04-20] MEDS ORDERED: CLOPIDOGREL75 MG PO (03:39)
[2019-04-20] MEDS ORDERED: ASPIRIN81 MG PO (03:39)
[2019-04-20] MEDS ORDERED: LASIX40 MG PO (03:39)
[2019-04-20 06:25] LABS: BASOPHILS % 0.3 % (0.0-1.0); EOSINOPHILS # (AUTO) 0.2 (0.0-0.4); EOSINOPHILS % 3.3 % (0.0-6.0); HEMATOCRIT 35.1 % (38.2-49.6); HEMOGLOBIN 10.6 g/dL (14.0-18.0); LYMPHOCYTES # (AUTO) 1.1 (1.0-3.2); LYMPHOCYTES % 18.4 % (18.0-39.1); MEAN CORPUSCULAR HEMOGLOBIN 24.8 pg (28-32); MEAN CORPUSCULAR HGB CONC 30.2 g/dL (31-35); MEAN CORPUSCULAR VOLUME 82.2 fL (81-99); MONOCYTES # (AUTO) 0.6 (0.2-0.8); MONOCYTES % 9.7 % (4.4-11.3); NEUTROPHILS # (AUTO) 4.2 (2.1-6.9); PLATELET COUNT 172 x10e3/uL (140-360); RED BLOOD COUNT 4.27 x10e6/uL (4.3-5.7); RED CELL DISTRIBUTION WIDTH 18.6 % (11.7-14.4)
--- NOTE | 2019-04-20 06:47 | NUR ---
report given to day nurse. patient is resting comfortably in bed. bed is in lowest position and call farnsworth is within reach.
[2019-04-20 06:59] LABS: ANION GAP 11.5 mmol/L (8-16); CALCIUM 9.1 mg/dL (8.4-10.2); CREATININE, SERUM 2.02 mg/dL (0.72-1.25); POTASSIUM 4.5 mmol/L (3.5-5.1)
--- NOTE | 2019-04-20 07:46 | NUR ---
Pt received pt in bed. Aox3 and able to verbalize needs. Pt denies any pain at this time. 0 s/s of acute distress noted.
[2019-04-20] MEDS: LEVOTHYROXINE SODIUM 50 MCG TAB PO SCH (08:55)
[2019-04-20] MEDS: PANTOPRAZOLE SOD 40 MG TABEC PO SCH (08:56)
[2019-04-20] MEDS: LIOTHYRONINE SODIUM 5 MCG TAB PO SCH (08:56)
[2019-04-20] MEDS: ASPIRIN 81 MG CHEW TAB PO SCH (08:56)
--- NOTE | 2019-04-20 12:10 | NUR ---
Informed Dr. Chapman of pt elevated blood sugar of 288 and family is asking if other home meds will be renewed. Was informed by physician that medications are being held at this time and monitoring.
[2019-04-20] MEDS: TRAMADOL HCL 50 MG TAB PO PRN (16:36)
[2019-04-20] MEDS: SODIUM CHLORIDE 0.9% 1000ML 1,000 ML IV SCH ×2 (17:04→21:25)
[2019-04-21] VITALS (9 sets, daily range): BP systolic 158–198; BP diastolic 70–91
[2019-04-21] MEDS: TRAMADOL HCL 50 MG TAB PO PRN ×2 (01:25→20:39)
--- NOTE | 2019-04-21 01:46 | NUR ---
Rechecked BP and HR, DH=005/69 mmhg HR=79 b/min.
--- NOTE | 2019-04-21 06:01 | NUR ---
Patient refused non skid socks.
--- NOTE | 2019-04-21 06:10 | NUR ---
offered for a smaller socks to fit on his feet. Patient still refused and chose to used his own socks.
--- NOTE | 2019-04-21 07:00 | NUR ---
PATIENT IS SITTING IN THE CHAIR: ALERT, AWAKE AND IN STABLE CONDITION WITH NO S/S OF RESPIRATORY DISTRESS. NO PAIN VOICED. IV FLUIDS INFUSING. TELEMETRY APPLIED. WALKER PRESENT NEAR PATIENT. CALL LIGHT IS WITHIN REACH, PATIENT INSTRUCTED TO CALL FOR ASSISTANCE NEEDED.
[2019-04-21] MEDS: LEVOTHYROXINE SODIUM 50 MCG TAB PO SCH (07:43)
[2019-04-21] MEDS: VALSARTAN 160 MG TAB PO SCH (08:21)
[2019-04-21] MEDS: ASPIRIN 81 MG CHEW TAB PO SCH (08:21)
[2019-04-21] MEDS: PANTOPRAZOLE SOD 40 MG TABEC PO SCH (08:21)
[2019-04-21] MEDS: LIOTHYRONINE SODIUM 5 MCG TAB PO SCH (08:21)
[2019-04-21] MEDS: SODIUM CHLORIDE 0.9% 1000ML 1,000 ML IV SCH (10:45)
--- NOTE | 2019-04-21 12:28 | NUR ---
INFORMED DR. HAGER REGARDING PATIENT'S BP AND FLUID RATE WELL BLOOD GLUCOSE. ORDER RECEIVED TO DC FLUIDS AND PLACE PATIENT ON A SLIDING SCALE.
[2019-04-21] MEDS: INSULIN LISPRO 100 UNIT/1 ML 3ML VIAL SQ SCH ×3 (12:30→20:29)
[2019-04-21] MEDS ORDERED: DEXTROSE 50% SYRINGE 50 ML IV PRN (12:45)
--- NOTE | 2019-04-21 16:43 | NUR ---
DR. HAGER INFORMED THAT THE PATIENT HAS A BP OF 168/82 AND ONLY HAS DIOVAN 80MG SCHEDULED DAILY, NO PRN. ORDER FROM DR. HAGER TO WATCH THE BP FOR NOW.
--- NOTE | 2019-04-21 19:24 | NUR ---
PATIENT RESTING IN BED-IN STABLE CONDITION WITH NO S/S OF RESPIRATORY DISTRESS. NO PAIN VOICED. CPAP APPLIED. WALKER NEAR BED. CALL LIGHT IS WITHIN REACH, PATIENT INSTRUCTED TO CALL FOR ASSISTANCE NEEDED. BEDSIDE REPORT GIVEN TO ONCOMING NURSE.
--- NOTE | 2019-04-21 19:26 | NUR ---
PT IS RESTING IN BED. RESPIRATION IS EVEN AND UNLABORED, NO DISTRESS NOTED. BED IN THE LOWEST POSITION, LOCKED, AND CALL LIGHT WITHIN REACH. WILL CONTINUE TO MONITOR.
[2019-04-22] VITALS (8 sets, daily range): BP systolic 129–170; BP diastolic 60–84
--- NOTE | 2019-04-22 07:08 | NUR ---
PATIENT IS IN STABLE CONDITION WITH NO S/S OF RESPIRATORY DISTRESS. NO PAIN VOICED. TELEMETRY APPLIED. CALL LIGHT IS WITHIN REACH, PATIENT INSTRUCTED TO CALL FOR ASSISTANCE NEEDED.
[2019-04-22] MEDS: INSULIN LISPRO 100 UNIT/1 ML 3ML VIAL SQ SCH ×4 (07:30→21:08)
[2019-04-22] MEDS: VALSARTAN 160 MG TAB PO SCH (08:44)
[2019-04-22] MEDS: PANTOPRAZOLE SOD 40 MG TABEC PO SCH (08:44)
[2019-04-22] MEDS: LEVOTHYROXINE SODIUM 50 MCG TAB PO SCH (08:44)
[2019-04-22] MEDS: ASPIRIN 81 MG CHEW TAB PO SCH (08:44)
[2019-04-22] MEDS: LIOTHYRONINE SODIUM 5 MCG TAB PO SCH (08:44)
--- NOTE | 2019-04-22 09:56 | NUR ---
DR. HAGER INFORMED PATIENT IS SHAKING, VOMITING, AND IS NAUSEOUS. ORDER FOR ZOFRAN 4MG Q4H PRN AND TO CANCEL DISCHARGE ORDER.
[2019-04-22] MEDS ORDERED: ONDANSETRON HCL INJ 2MG/ML 2ML 2 MG/ML VIAL IV PRN (10:30)
--- NOTE | 2019-04-22 19:15 | NUR ---
PATIENT RESTING IN BED- IN STABLE CONDITION WITH NO S/S OF RESPIRATORY DISTRESS. NO PAIN VOICED. TELEMETRY APPLIED. CPAP APPLIED. CALL LIGHT IS WITHIN REACH, PATIENT INSTRUCTED TO CALL FOR ASSISTANCE NEEDED. BEDSIDE REPORT GIVEN TO ONCOMING NURSE.
[2019-04-23] VITALS (7 sets, daily range): BP systolic 125–184; BP diastolic 59–80
[2019-04-23] MEDS: LEVOTHYROXINE SODIUM 50 MCG TAB PO SCH (07:30)
[2019-04-23] MEDS: INSULIN LISPRO 100 UNIT/1 ML 3ML VIAL SQ SCH ×2 (07:30→11:30)
--- NOTE | 2019-04-23 07:48 | Consultation ---
DATE OF CONSULTATION: SUBJECTIVE: The patient unfortunately did not go home yesterday secondary to prior to going home, he started having another significant shaking spells that he has at home at least to him getting significantly confused, falling down, but he states only lasted for about 30 to 45 minutes. His vital signs and sugars at that time were okay and rest of the day, he did very, very well with no other complaints. He says overall he is feeling great. OBJECTIVE: VITAL SIGNS: Currently, temperature 96.1, pulse 80, blood pressure 162/83, sats 97% on room air. GENERAL: He is in no apparent distress. CARDIOVASCULAR: Regular rate and rhythm. LUNGS: Clear to auscultation bilaterally. ABDOMEN: Good bowel sounds. Soft, nontender. EXTREMITIES: No clubbing or cyanosis. NEUROLOGIC: Nonfocal. Moves all extremities x4. ASSESSMENT AND PLAN: 1. Diabetes. Continue with current care. 2. Hypothyroidism. Continue with medication. 3. Hypertension. Continue with his medication. 4. Anemia. Continue to monitor p.r.n. 5. History of reflux disease. Continue with his proton pump inhibitor. 6. Weakness and spells. I am unsure of the etiology, but not really able to find any organic reasons during his hospitalization, so most likely we will go ahead and discharge later today if continues to do well with outpatient followup closely maybe with neurologist, which has been discussed in the past with the patient. Please see hospital chart for full details. MD DONOVAN Calle/CHRISTOPHER /[id number]
[2019-04-23] MEDS: PANTOPRAZOLE SOD 40 MG TABEC PO SCH (09:06)
[2019-04-23] MEDS: VALSARTAN 160 MG TAB PO SCH (09:06)
[2019-04-23] MEDS: LIOTHYRONINE SODIUM 5 MCG TAB PO SCH (09:06)
[2019-04-23] MEDS: ASPIRIN 81 MG CHEW TAB PO SCH (09:06)
[2019-04-23] MEDS ORDERED: ONDANSETRON HCL 4 MG ORAL DISINTEGRATING TAB PO PRN (10:00)
--- NOTE | 2019-04-23 11:31 | NUR ---
Charge nurse spoke with attending and got orders to discharge patient. Provided with discharge list of med, remain on the same medications, IV line removed and dressing applied.
--- NOTE | 2019-04-26 19:53 | Discharge Summary ---
DISCHARGE DIAGNOSES: 1. Encephalopathy secondary to hypoglycemia. 2. Diabetes. 3. Hypertension. 4. Sleep apnea. HISTORY OF PRESENT ILLNESS AND HOSPITAL COURSE: See hospital chart for full details. The patient is a gentleman, who presented with some falls, confusion, was found to have some hypoglycemia. He was brought in and held on some of his medications, where he had a significant improvement back to his baseline, where he was mentating once his sugars were normalized back to normal. His cultures were negative. No other organic issues were really found. So at the time of discharge, the patient was feeling well, he was back to his baseline, so he was discharged home in good condition. He will follow up with me in 1 to 2 weeks. Please see hospital chart for full details. MD DONOVAN Calle/CHRISTOPHER /[id number]
== END 2019-04-23 13:00 | disposition home or self-care (01) | DRG 637 ==
LOC: ER 16:48 → ERHOLD 18:45 → MED/SURG3 19:52 → MED/SURG 04-22 17:23 → MED/SURG3 04-22 17:24
PROVIDERS: ADMIT Internal Medicine; ATTEND Internal Medicine
DX: E11.649 Type 2 diabetes mellitus with hypoglycemia without coma (principal); G93.41 Metabolic encephalopathy; E66.9 Obesity, unspecified; Z68.39 Body mass index [BMI] 39.0-39.9, adult; E03.9 Hypothyroidism, unspecified; K21.9 Gastro-esophageal reflux disease without esophagitis; E11.22 Type 2 diabetes mellitus with diabetic chronic kidney disease; I12.9 Hypertensive chronic kidney disease with stage 1 through stage 4 chronic kidney disease, or unspecified chronic kidney disease; M10.9 Gout, unspecified; Z88.0 Allergy status to penicillin; M19.90 Unspecified osteoarthritis, unspecified site; N18.3 Chronic kidney disease, stage 3 (moderate); D63.1 Anemia in chronic kidney disease; Z91.81 History of falling; G47.30 Sleep apnea, unspecified; Z79.82 Long term (current) use of aspirin; Z79.4 Long term (current) use of insulin
CPT/HCPCS: 36415; 70450; 71045; 72110; 80048; 80053; 81001; 82550; 82553; 82948; 83605; 83880; 84484; 85025; 85610; 87040; 93005; 99284; J2405; J7030; J7799